=== PATIENT | male | born 1950 | race Hispanic/Latino ===

== ENCOUNTER 2017-09-09 14:04 | Inpatient (IN) | payer MEDICARE ==
[~2017-09-09] VITALS: Ht 172.7 cm; Wt 113.9 kg
[2017-09-09 17:32] VITALS: BP 110/67
[2017-09-09 17:36] VITALS: BP 110/67
[2017-09-09 17:38] LABS: BASOPHILS # (AUTO) 0.1 (0.0-0.1); BASOPHILS % 1.5 % (0.0-1.0); EOSINOPHILS # (AUTO) 0.3 (0.0-0.4); EOSINOPHILS % 7.1 % (0.0-6.0); HEMATOCRIT 29.6 % (38.2-49.6); HEMOGLOBIN 10.1 g/dL (14.0-18.0); LYMPHOCYTES # (AUTO) 0.9 (1.0-3.2); LYMPHOCYTES % 18.3 % (18.0-39.1); MEAN CORPUSCULAR HEMOGLOBIN 28.8 pg (28-32); MEAN CORPUSCULAR HGB CONC 34.1 g/dL (31-35); MEAN CORPUSCULAR VOLUME 84.3 fL (81-99); MONOCYTES # (AUTO) 0.7 (0.2-0.8); MONOCYTES % 14.9 % (4.4-11.3); NEUTROPHILS # (AUTO) 2.8 (2.1-6.9); NEUTROPHILS % 57.8 % (38.7-80.0); RED BLOOD COUNT 3.51 x10e6/uL (4.3-5.7); RED CELL DISTRIBUTION WIDTH 20.3 % (11.7-14.4)
[2017-09-09 17:40] LABS: PLATELET COUNT 61 x10e3/uL (140-360)
[2017-09-09 17:56] LABS: ALBUMIN 2.2 g/dL (3.5-5.0); ALBUMIN/GLOBULIN RATIO 0.5 (0.8-2.0); ANION GAP 10.4 mmol/L (8-16); CALCIUM 7.7 mg/dL (8.4-10.2); CREATININE, SERUM 1.24 mg/dL (0.72-1.25); POTASSIUM 4.4 mmol/L (3.5-5.1)
[2017-09-09 17:58] LABS: INR 1.75; PROTHROMBIN TIME 19.2 seconds (11.9-14.5)
[2017-09-09 17:59] LABS: PARTIAL THROMBOPLASTIN TIME 38.1 seconds (23.8-35.5)
[2017-09-09] MEDS ORDERED: XIFAXAN550 MG PO (18:08)
[2017-09-09] MEDS ORDERED: CARVEDILOL3.125 MG PO (18:08)
[2017-09-09] MEDS ORDERED: SPIRONOLACTONE25 MG PO (18:08)
[2017-09-09] MEDS ORDERED: CEFDINIR300 MG PO (18:08)
[2017-09-09] MEDS: DOXYCYCLINE 100MG/NS 100ML 100 ML IV SCH (18:15)
--- NOTE | 2017-09-09 18:39 | Diagnostic Imaging Report ---
PROCEDURE: X-RAY CHEST, TWO VIEWS COMPARISON: None. INDICATIONS: sob FINDINGS: LUNGS: There right middle lobe consolidation suspected right lower lobe atelectasis with small to moderate sized right pleural effusion. Aerated right upper lobe demonstrates no evidence of mass or infiltrate. Left lung is clear. PLEURA: No pneumothorax. HEART \T\ MEDIASTINUM: The heart is within normal size-limits. The aortic arch is mildly ectatic. BONES \T\ SOFT TISSUES: No focal osseous lesions. Soft tissues are unremarkable. CONCLUSION: Right middle lobe consolidation and suspected right lower lobe atelectasis with small pleural effusion. Obstructing bronchial mass cannot be excluded. Recommend further characterization with CT of the chest. Dictated by: Regan Vasquez M.D. on 09/09/2017 at 18:43 Electronically approved by: Regan Vasquez M.D. on 09/09/2017 at 18:43
--- NOTE | 2017-09-09 19:09 | Consultation ---
DATE OF CONSULTATION: September 09, 2017 GASTROENTEROLOGY CONSULTATION HISTORY OF PRESENT ILLNESS: Mr. Rodriguez is a 67-year-old gentleman who according to him and his have cirrhosis of the liver, cancer of the liver being treated at . [facility]. Initial he was receiving the oral treatment for liver cancer, which was stopped because of a poor response. Came to see us when he started complaining of shortness of breath and lack of energy and increase in abdominal girth. Dr. Gio Call admitted him for management. HE IS ALLERGIC TO NOTHING. His home medicine including magnesium, Xifaxan 550 mg every 12 hours, Lasix 40 mg every day, Aldactone 200 mg every day, carvedilol 6.25 mg twice a day, lactulose every day, and cefdinir 300 mg every 12 hours. REVIEW OF SYSTEMS: As above. PHYSICAL EXAMINATION GENERAL: Hemodynamically stable. Awake, alert, oriented. HEENT: Pale sclerae. NECK: Supple. LUNGS: Decreased breath sounds on the lower right lung. HEART: Regular-regular rhythm, very faint sounds. ABDOMEN: Increased abdominal girth. Unable to appreciate any internal organ. No signs of acute abdomen. EXTREMITIES: 2+ pedal edema. IMPRESSION 1. Cirrhosis of the liver. 2. Cancer of the liver. 3. Terminal liver disease, unfortunate case. 4. Recent increase in abdominal girth. Will put him on a low-salt diet. Will ask the parquet floor layer to teach him about low-salt diet. Will do large-volume paracentesis and will check his basic lab tests. Job#: [id number] EV
[2017-09-09 20:14] VITALS: BP 109/64
[2017-09-09 20:17] VITALS: BP 109/64
[2017-09-09 20:52] VITALS: BP 109/65
[2017-09-09] MEDS: METHYLPREDNISOLONE SOD SUCC 40 MG/ML VIAL IV SCH (20:52)
[2017-09-10] VITALS (10 sets, daily range): BP systolic 102–143; BP diastolic 50–78
[2017-09-10] MEDS: DOXYCYCLINE 100MG/NS 100ML 100 ML IV SCH (05:56)
[2017-09-10] MEDS ORDERED: SODIUM CHLORIDE 0.9% 1000ML 1,000 ML IV ONE (08:30)
[2017-09-10] MEDS ORDERED: LACTULOSE SYRUP 20 GM/30 ML UDC PO PRN (08:30)
[2017-09-10] MEDS ORDERED: SPIRONOLACTONE 25 MG TAB PO SCH (09:00)
[2017-09-10] MEDS: METHYLPREDNISOLONE SOD SUCC 40 MG/ML VIAL IV SCH ×2 (09:00→21:00)
[2017-09-10] MEDS: RIFAXIMIN 550 MG TABLET PO SCH ×2 (09:00→20:15)
[2017-09-10] MEDS: PANTOPRAZOLE SOD 40 MG TABEC PO SCH (09:00)
[2017-09-10] MEDS: CARVEDILOL 3.125 MG TAB PO SCH ×2 (09:00→16:57)
[2017-09-10] MEDS ORDERED: SPIRONOLACTONE 25 MG TAB PO ONE (11:30)
[2017-09-10] MEDS: FUROSEMIDE 40 MG TAB PO SCH (12:23)
--- NOTE | 2017-09-10 12:53 | History and Physical ---
CHIEF COMPLAINT: Right middle lobe and right lower lobe atelectasis with a history of liver cancer. HISTORY OF PRESENT ILLNESS: The patient is a 67-year-old man. He has a history of liver cancer and cirrhosis. He was treated at [facility], but has completed all the possible chemotherapy. He still has some recurrent ascites and requires serial ultrasound-guided thoracentesis. He notes worsening dyspnea over the past several weeks. He did not improve with nebulizers, antibiotics and Solu-Medrol at home. He had a chest x-ray done in the office yesterday that showed some right lower lobar atelectasis. PAST MEDICAL HISTORY 1. Liver cancer. 2. Cirrhosis. PAST SURGICAL HISTORY: Noncontributory. FAMILY HISTORY: Noncontributory. SOCIAL HISTORY: The patient is not an active smoker or drinker. REVIEW OF SYSTEMS: There is no fever. He is not having any headache. He does have some change in his voice. It is more nasal than usual. He does not have any neck pain. He is not having any chest pain. He does have some dyspnea. There is no cough. There is no abdominal pain although he does have some abdominal distention. He has some leg swelling. PHYSICAL EXAMINATION VITALS: The patient is afebrile. The vital signs are stable. HEENT: Shows no facial swelling or erythema. The nasal mucosa is normal. The oropharynx is normal. LYMPHATICS: Shows no submandibular, cervical or supraclavicular adenopathy. CARDIAC: Reveals a regular rate and rhythm with a normal S1 and S2. There are no murmurs or rubs. LUNGS: Auscultation of the lungs reveals decreased breath sounds at the right base. ABDOMEN: Soft. There is some distention. EXTREMITIES: There is 2+ leg edema bilaterally. NEURO: There are no focal neurological complaints. LABORATORY DATA: The hemoglobin is 10.1 and the platelet count is 61,000. The sodium is 127 and the BUN to creatinine ratio is 15 to 1.2. The PT is 19.2. RADIOGRAPHIC DATA: Chest x-ray shows right middle lobe and right lower lobe atelectasis. IMPRESSION 1. Lobar atelectasis in the right middle lobe and right lower lobe. 2. Cirrhosis. 3. Liver cancer. 4. Coagulopathy secondary to liver disease. 5. Acute kidney injury. 6. Hyponatremia. PLAN 1. The patient will receive intravenous fluids and repeat creatinine. 2. Chest physiotherapy and nebulizer treatments to try and expectorate phlegm. 3. If the patient is unable to improve with conservative measures, then a bronchoscopy will be indicated. 4. Solu-Medrol and antibiotics. 5. GI consultation. Job#: [id number] RI
[2017-09-10] MEDS: ALBUTEROL SULF 0.083% NEB SOLN 3 ML NEB NEB SCH ×2 (13:17→20:00)
--- NOTE | 2017-09-10 16:33 | Diagnostic Imaging Report ---
EXAMINATION: CT of the abdomen and pelvis without contrast. TECHNIQUE: Spiral CT images of the abdomen and pelvis were performed from the lung bases to the lesser trochanters. No intravenous contrast was given per physician's request.. Coronal and sagittal reformatted images were obtained. COMPARISON: None. CLINICAL HISTORY:Atelectasis, abdominal distention, shortness of breath DISCUSSION: ABSENCE OF INTRAVENOUS CONTRAST DECREASES SENSITIVITY FOR DETECTION OF FOCAL LESIONS AND VASCULAR PATHOLOGY. ABDOMEN/PELVIS: LOWER THORAX: Partially visualized moderate right pleural effusion and marked compressive atelectasis of the right lower lobe and mild compressive atelectasis of the right middle lobe. HEPATOBILIARY: Nodular hepatic contour. Ill-defined 1.2 cm hypodensity in hepatic segment ANTON (series 2, image 11). No other focal lesions. No intra or extrahepatic biliary ductal dilation. GALLBLADDER: No radio-opaque stones or sludge. Moderate wall thickening, however, the gallbladder is contracted. SPLEEN: No splenomegaly. PANCREAS: No focal masses or ductal dilatation. ADRENALS: Right adrenal gland is unremarkable. 1.6 cm soft tissue density superior and adjacent to the left adrenal gland (series 2, image 20). KIDNEYS/URETERS: No hydronephrosis, stones, or solid mass lesions. PELVIC ORGANS/BLADDER: Circumferential bladder wall thickening, which may be partly due to underdistention. Prostate is unremarkable. PERITONEUM/RETROPERITONEUM: Moderate amount of perihepatic ascites and small to moderate free fluid in the pelvis. LYMPH NODES: No intra-abdominal,retroperitoneal, pelvic or inguinal lymphadenopathy. VESSELS: Atherosclerotic calcification of the infrarenal abdominal aorta and proximal iliac vessels. Recanalized umbilical vein. GI TRACT: No bowel dilation or evidence of obstruction. BONES AND SOFT TISSUES: No aggressive lytic lesions. Degenerative disc changes in the lower thoracic and lumbosacral spine. 4.7 x 3.2 x 4.6 cm umbilical hernia containing a small portion of small bowel which has an unremarkable appearance, without wall thickening or dilation, and a small amount of free fluid. IMPRESSION: 1. Cirrhotic liver morphology with evidence of portal hypertension manifested by moderate amount of ascites and recanalized umbilical vein. 2. Ill-defined 1.2 cm hypodensity in hepatic segment ANTON which is indeterminate. Given the cirrhotic background, HCC is a consideration. 3. Partially visualized moderate right pleural effusion with marked compressive atelectasis of the right lower lobe and mild compressive atelectasis of the right middle lobe. 4. 1.6 cm soft tissue density superior and adjacent to the left adrenal gland may represent an adrenal lesion such as adenoma versus an adjacent enlarged lymph node. 5. 4.7 cm umbilical hernia containing a small portion of small bowel and free fluid, without evidence of strangulation or incarceration. Signed by: Dr. Sal Brooks M.D. on 09/10/2017 4:29 PM
[2017-09-10] MEDS ORDERED: PROPOFOL IV EMULSION 10 MG/ML 20 ML VIAL ONE (17:33)
[2017-09-10] MEDS ORDERED: LIDOCAINE HCL 2% LOCAL INJ 5 ML SDV VIAL INJ ONE (17:33)
[2017-09-10] MEDS ORDERED: ONDANSETRON HCL INJ 2 MG/ML VIAL ONE (17:33)
[2017-09-10] MEDS ORDERED: DEXAMETHASONE SOD PHOS INJ 4 MG/ML VIAL ONE (17:33)
[2017-09-10] MEDS ORDERED: SUCCINYLCHOLINE 200 MG/10 ML SYR ONE (17:33)
[2017-09-10] MEDS ORDERED: SEVOFLURANE INHAL SOLN 250 ML PEN BTL ONE (17:33)
[2017-09-10] MEDS: DOXYCYCLINE HYCLATE IV SCH (17:45)
[2017-09-10] MEDS: DEXTROSE 5% IV SCH (17:45)
[2017-09-10] MEDS ORDERED: DEXTROSE 5% 250ML 250 ML IV ONE (17:45)
[2017-09-10] MEDS ORDERED: LIDOCAINE HCL 1% LOCAL INJ 20 ML VIAL ONE (19:01)
--- NOTE | 2017-09-10 21:06 | Diagnostic Imaging Report ---
PROCEDURE:US GUIDED DIAGNOSTIC AND THERAPEUTIC PARACENTESIS COMPARISON:None. INDICATIONS:paracentesis FINDINGS: Written informed consent was obtained. The patient was prepped and draped in the usual sterile fashion. Ultrasound demonstrated moderate volume ascites in the right mid and lower abdomen. A suitable pocket of fluid in the right mid abdomen was visualized and 1% subcutaneous lidocaine was administered. With direct ultrasound guidance a 5 Fr catheter was advanced into the peritoneal cavity via direct trochar technique. Approximately 500 cc of cloudy serous fluid was aspirated. Samples were sent to microbiology and chemistries. Repeat ultrasound demonstrated the fluid in the right mid abdomen was resolved but there was an additional pocket of fluid in the right lower quadrant. The catheter was removed. After administration of 1% subcutaneous lidocaine, the 5 Fr catheter was advanced into the right lower quadrant fluid with ultrasound guidance and an additional 500 cc of cloudy serous fluid was aspirated. Repeat ultrasound demonstrated drainage of previously visualized ascites. The catheter was removed. Dermabond was applied at the access sites and bandages were placed. There were no immediate complications. CONCLUSION: Diagnostic and therapeutic paracentesis with aspiration of 1000 cc of cloudy serous fluid. Dictated by: SERGO BOTELLO M.D. on 09/10/2017 at 19:57 Electronically approved by: SERGO BOTELLO M.D. on 09/10/2017 at 19:57
[2017-09-10] MEDS: ZOLPIDEM TARTRATE 5 MG TAB PO PRN (21:30)
[2017-09-10] MEDS ORDERED: ALBUMIN 25% 25GM 0.25 GM/ML BTL IV ONE ×3 (21:30→23:15)
[2017-09-10 22:09] LABS: BODY FLUID APPEARANCE CLOUDY; BODY FLUID COLOR STRAW; BODY FLUID TYPE PERITONEAL
[2017-09-10 22:11] LABS: RBC,BODY FLUID 2663 cells/uL; WBC,BODY FLUID 168 cells/uL
[2017-09-10 23:09] LABS: LYMPHOCYTES,BODY FLUID 43 %; MONO/MACROPHG,BODY FLUID 5 %; NEUTROPHILS,BODY FLUID 52 %
[2017-09-11] VITALS (7 sets, daily range): BP systolic 118–135; BP diastolic 56–67
[2017-09-11] MEDS: ALBUTEROL SULF 0.083% NEB SOLN 3 ML NEB NEB SCH ×4 (00:05→18:50)
--- NOTE | 2017-09-11 01:31 | Progress Note ---
DATE: September 10, 2017 No dictation, 00:27 seconds. Job#: [id number]
--- NOTE | 2017-09-11 01:39 | Progress Note ---
DATE: September 10, 2017 Doing very well. Stable from yesterday. No major change. Pending his ultrasound-guided paracentesis. His chest x-ray showed right middle lobe consolidation and small right lung effusion. On exam, blood pressure 115/59, pulse 71, temperature 98. LAB TESTS: Showed total bilirubin 3.2, AST 82, ALT 67, alk phos is 166. PT 19, PTT 38. BUN 15, creatinine 1.24. Potassium 4.4, sodium 127. His platelets 61,000, hemoglobin 10, hematocrit is 29, and white cell count 4.8. Nothing to add to his care today except waiting for the dietitian education of low-salt diet. Will restrict his water intake to about liter and a half and monitor his sodium. Also waiting for the paracentesis. His abdomen is soft, nontender and no change from yesterday. Job#: [id number]
[2017-09-11 04:51] LABS: HEMATOCRIT 26.8 % (38.2-49.6); HEMOGLOBIN 9.4 g/dL (14.0-18.0); LYMPHOCYTES # (AUTO) 0.4 (1.0-3.2); MEAN CORPUSCULAR HEMOGLOBIN 28.9 pg (28-32); MEAN CORPUSCULAR HGB CONC 35.1 g/dL (31-35); MEAN CORPUSCULAR VOLUME 82.5 fL (81-99); MONOCYTES # (AUTO) 0.2 (0.2-0.8); MONOCYTES % 3.5 % (4.4-11.3); NEUTROPHILS # (AUTO) 5.6 (2.1-6.9); NEUTROPHILS % 88.9 % (38.7-80.0); PLATELET COUNT 51 x10e3/uL (140-360); RED BLOOD COUNT 3.25 x10e6/uL (4.3-5.7); RED CELL DISTRIBUTION WIDTH 19.8 % (11.7-14.4)
[2017-09-11 05:10] LABS: ALANINE AMINOTRANSFERASE 64 IU/L (0-55); ALBUMIN 2.2 g/dL (3.5-5.0); ALBUMIN/GLOBULIN RATIO 0.5 (0.8-2.0); ALKALINE PHOSPHATASE 136 IU/L (40-150); ANION GAP 9.7 mmol/L (8-16); BLOOD UREA NITROGEN 18 mg/dL (7-26); BUN/CREATININE RATIO 18 (6-25); CALCIUM 8.1 mg/dL (8.4-10.2); CARBON DIOXIDE 22 mmol/L (22-29); CHLORIDE 103 mmol/L (98-107); CREATININE, SERUM 1.01 mg/dL (0.72-1.25); EST GLOMERULAR FILTRATION RATE > 60 ML/MIN (60-); GLUCOSE 174 mg/dL (74-118); POTASSIUM 4.7 mmol/L (3.5-5.1); SODIUM 130 mmol/L (136-145)
[2017-09-11 05:27] LABS: ANISOCYTOSIS SLIGHT; PLATELET ESTIMATE MARKEDLY DECREASED; PLATELET MORPHOLOGY COMMENT NORMAL; RBC MORPHOLOGY COMMENT NORMAL
[2017-09-11] MEDS: DOXYCYCLINE HYCLATE IV SCH ×2 (06:11→18:16)
[2017-09-11] MEDS: DEXTROSE 5% IV SCH ×2 (06:11→18:16)
[2017-09-11] MEDS: CARVEDILOL 3.125 MG TAB PO SCH ×2 (08:15→16:57)
[2017-09-11] MEDS: PANTOPRAZOLE SOD 40 MG TABEC PO SCH (08:15)
[2017-09-11] MEDS: FUROSEMIDE 40 MG TAB PO SCH (08:15)
[2017-09-11] MEDS: RIFAXIMIN 550 MG TABLET PO SCH ×2 (08:15→20:15)
[2017-09-11] MEDS: SPIRONOLACTONE 25 MG TAB PO SCH (08:15)
[2017-09-11] MEDS: METHYLPREDNISOLONE SOD SUCC 40 MG/ML VIAL IV SCH ×2 (08:15→21:00)
[2017-09-11] MEDS: ZOLPIDEM TARTRATE 5 MG TAB PO PRN (22:08)
[2017-09-12] VITALS (8 sets, daily range): BP systolic 101–123; BP diastolic 50–67
[2017-09-12] MEDS: DOXYCYCLINE HYCLATE IV SCH ×3 (06:00→19:45)
[2017-09-12] MEDS: DEXTROSE 5% IV SCH ×3 (06:00→19:45)
[2017-09-12] MEDS: ALBUTEROL SULF 0.083% NEB SOLN 3 ML NEB NEB SCH ×3 (07:00→19:45)
[2017-09-12] MEDS: PANTOPRAZOLE SOD 40 MG TABEC PO SCH (07:30)
[2017-09-12] MEDS: RIFAXIMIN 550 MG TABLET PO SCH ×2 (08:15→22:08)
[2017-09-12] MEDS ORDERED: ALBUMIN 25% 25GM 0.25 GM/ML BTL IV ONE ×2 (09:00→10:00)
[2017-09-12] MEDS: CARVEDILOL 3.125 MG TAB PO SCH ×2 (09:00→17:09)
[2017-09-12] MEDS: FUROSEMIDE 40 MG TAB PO SCH (09:00)
[2017-09-12] MEDS: SPIRONOLACTONE 25 MG TAB PO SCH (09:00)
[2017-09-12] MEDS: METHYLPREDNISOLONE SOD SUCC 40 MG/ML VIAL IV SCH ×2 (09:00→22:08)
[2017-09-12] MEDS ORDERED: LIDOCAINE HCL 4% 50 ML BTL ONE (13:50)
[2017-09-12] MEDS ORDERED: EPINEPHRINE HCL INJ 1 MG/ML AMP ONE (13:50)
[2017-09-12] MEDS ORDERED: LIDOCAINE HCL 2% 30 ML TUBE ONE (13:51)
[2017-09-12] MEDS ORDERED: ACETYLCYSTEINE 200 MG/ML 4ML VIAL ONE (13:51)
[2017-09-12] MEDS ORDERED: OXYMETAZOLINE HCL 0.05% NAS 1 SPRAY BTL ONE (13:51)
--- NOTE | 2017-09-12 14:59 | Operative Report ---
DATE OF PROCEDURE: September 12, 2017 PROCEDURE: Bronchoscopy with bronchial washings. CONSENT: Consent was obtained from the patient. ANESTHESIA: The anesthesia service provided intravenous sedation. PROCEDURE: The patient was placed in a supine position. Oral endotracheal tube was used. The scope was advanced through the tube into the trachea. The tracheal mucosa was normal. Some mucus was removed from the trachea. The tayla was normal. The scope was then positioned into the left tracheobronchial tree. The lingula was normal to the subsegmental level. The left lower lobe was normal to the subsegmental level. The scope was repositioned into the right tracheobronchial tree. There was mucus removed from the right mainstem bronchus. The right upper lobe appeared normal to the subsegmental level. Mucus was then removed from the right middle lobe and right lower lobe. There were no endobronchial lesions. COMPLICATIONS: None. ESTIMATED BLOOD LOSS: None. Job#: [id number]
--- NOTE | 2017-09-12 17:07 | Diagnostic Imaging Report ---
PROCEDURE: Frontal and lateral views of the chest. COMPARISON: 09/09/17 INDICATIONS: STATUS POST BRONCHOSCOPY FINDINGS: Lines/tubes: None. Lungs: The lungs are well inflated. Again seen right middle and lower lobe atelectasis. Left lung is clear. Pleura: There is right pleural effusion. No pneumothorax. Heart and mediastinum: The heart and the mediastinum are normal. Bones: No acute bony abnormality. IMPRESSION: Decreased aeration of right lung when compared to prior x-ray. Opacification of right mid to lower lung field, likely due to atelectasis of the right middle and lower lobes and small to moderate size right pleural effusion. Dictated by: Dimitri Patel M.D. on 09/12/2017 at 17:11 Electronically approved by: Dimitri Patel M.D. on 09/12/2017 at 17:11
[2017-09-12] MEDS ORDERED: MIDAZOLAM HCL 2 MG/2 ML VIAL ONE (17:42)
[2017-09-12] MEDS ORDERED: FENTANYL CITRATE/PF 100MCG/2 ML INJ ONE (17:42)
[2017-09-13] VITALS: BP 107/57
[2017-09-13 04:00] VITALS: BP 120/58
[2017-09-13] MEDS: DOXYCYCLINE HYCLATE IV SCH (05:28)
[2017-09-13] MEDS: DEXTROSE 5% IV SCH (05:28)
[2017-09-13] MEDS: ALBUTEROL SULF 0.083% NEB SOLN 3 ML NEB NEB SCH ×2 (06:49)
[2017-09-13 08:00] VITALS: BP 103/56
[2017-09-13] MEDS: RIFAXIMIN 550 MG TABLET PO SCH (08:27)
[2017-09-13] MEDS: CARVEDILOL 3.125 MG TAB PO SCH (08:27)
[2017-09-13] MEDS: PANTOPRAZOLE SOD 40 MG TABEC PO SCH (08:27)
[2017-09-13] MEDS: FUROSEMIDE 40 MG TAB PO SCH (08:27)
[2017-09-13] MEDS: SPIRONOLACTONE 25 MG TAB PO SCH (08:28)
[2017-09-13 09:03] VITALS: BP 103/56
== END 2017-09-13 09:40 | disposition home or self-care (01) | DRG 206 ==
LOC: IMCU 16:03 → OBSVTOIN 09-10 08:40 → MED/SURG2 09-10 15:28
PROVIDERS: ADMIT Internal Medicine Critical Care Medicine; ATTEND Internal Medicine Critical Care Medicine
PROC: 0W9G3ZX Drainage of Peritoneal Cavity, Percutaneous Approach, Diagnostic (ICD-10-PCS; 2017-09-10)
PROC: 0BJ08ZZ Inspection of Tracheobronchial Tree, Via Natural or Artificial Opening Endoscopic (ICD-10-PCS; 2017-09-12)
PROC: 0BC18ZZ Extirpation of Matter from Trachea, Via Natural or Artificial Opening Endoscopic (ICD-10-PCS; principal; 2017-09-12 14:10)
DX: J98.11 Atelectasis (principal); D68.4 Acquired coagulation factor deficiency; N17.9 Acute kidney failure, unspecified; E87.1 Hypo-osmolality and hyponatremia; K74.60 Unspecified cirrhosis of liver; E86.0 Dehydration
CPT/HCPCS: 31623; 36415; 49083; 71046; 74176; 80053; 82040; 84155; 84157; 85025; 85610; 85730; 87071; 87186; 87205; 87335; 89051; 94640; 94667; 94668; G0378; J0171; J1100; J2001; J2250; J2405; J2920; J7030; P9047

== ENCOUNTER → 2017-09-20 | Outpatient (CLI) | payer MEDICARE ==
[~2017-09-20] MED LIST: CARVEDILOL3.125 MG PO; CEFDINIR300 MG PO; SPIRONOLACTONE25 MG PO; XIFAXAN550 MG PO
[2017-09-20 11:10] LABS: INR 1.65; PROTHROMBIN TIME 18.3 seconds (11.9-14.5)
[2017-09-20 11:11] LABS: PARTIAL THROMBOPLASTIN TIME 36.5 seconds (23.8-35.5)
--- NOTE | 2017-09-20 13:37 | Diagnostic Imaging Report ---
PROCEDURE: CHEST XRAY POST PROCEDURE COMPARISON: Patients [facility], DX, CHEST 2 VIEWS, 09/12/2017, 16:21. INDICATIONS: s/p rt. side thoracentesis FINDINGS: See conclusion. CONCLUSION: 1. No pneumothorax is identified. 2. Interval improvement in previously visualized moderate to large right pleural effusion post thoracentesis. 3. Left lung is grossly clear. 4. Cardiac silhouette is stable. Sla Brooks M.D. Dictated by: Sal Brooks M.D. on 09/20/2017 at 13:42 Electronically approved by: Sal Brooks M.D. on 09/20/2017 at 13:42
--- NOTE | 2017-09-20 13:52 | Diagnostic Imaging Report ---
PROCEDURE: ULTRASOUND GUIDED THORACENTESIS COMPARISON: [facility], DX, CHEST 2 VIEWS, 09/12/2017, 16:21. INDICATIONS:pleural effusion FINDINGS: After informed consent was obtained, the patient was placed in the sitting position and preliminary ultrasound of the posterior chest identified a safe route into the right pleural effusion. The overlying skin was prepped and draped in usual sterile fashion. Lidocaine 1% was used for local anesthesia. Under ultrasound guidance, a centesis needle was advanced into the pleural fluid and 2000 cc of blood tinged yellowish fluid were aspirated. The patient tolerated the procedure well and there were no immediate post-procedural complications. A post-thoracentesis chest radiograph will be obtained. CONCLUSION: Uncomplicated ultrasound-guided right thoracentesis with removal of 2000 cc. Sal Brooks M.D. Dictated by: Sal Brooks M.D. on 09/20/2017 at 13:57 Electronically approved by: Sal Brooks M.D. on 09/20/2017 at 13:57
== END ==
LOC: US 10:01
PROVIDERS: ATTEND Internal Medicine Critical Care Medicine
DX: J90 Pleural effusion, not elsewhere classified (principal)
CPT/HCPCS: 32555; 36415; 71045; 85049; 85610; 85730

== ENCOUNTER → 2017-09-26 | Outpatient (CLI) | payer MEDICARE ==
[~2017-09-26] MED LIST changes: +LIDOCAINE HCL 1% LOCAL INJ 20 ML VIAL ONE
[2017-09-26 09:45] LABS: INR 1.6; PROTHROMBIN TIME 17.9 seconds (11.9-14.5)
[2017-09-26 09:46] LABS: PARTIAL THROMBOPLASTIN TIME 37.1 seconds (23.8-35.5)
--- NOTE | 2017-09-26 11:48 | Diagnostic Imaging Report ---
PROCEDURE: ULTRASOUND GUIDED RIGHT SIDED DIAGNOSTIC AND THERAPEUTIC THORACENTESIS INDICATIONS: Pleural Effusion COMPARISON: Right sided thoracentesis on 09/20/2017. TECHNIQUE: The patient was informed of the nature of the proposed procedure. The purposes, alternatives, risks, and benefits were explained and discussed. All questions were answered and written consent was obtained. Medications: 1% Xylocaine DESCRIPTION/FINDINGS: Informed consent was obtained from the patient. Sterile technique was used. An ultrasound-guided right sided thoracentesis was performed. With the use of ultrasound guidance, a large right pleural fluid collection was identified. After infiltrating the skin with 1% xylocaine, a 5 Fr catheter was advanced into the right pleural space and 2000 cc of cloudy serous fluid was removed. The catheter was removed without immediate complication. A chest radiograph was ordered. Samples were sent for analysis. IMPRESSION: 1. ULTRASOUND GUIDED RIGHT SIDED DIAGNOSTIC AND THERAPEUTIC THORACENTESIS. Dictated by: SERGO BOTELLO M.D. on 09/26/2017 at 11:54 Electronically approved by: SERGO BOTELLO M.D. on 09/26/2017 at 11:54
--- NOTE | 2017-09-26 12:38 | Diagnostic Imaging Report ---
PROCEDURE:CHEST XRAY POST PROCEDURE COMPARISON:Chest radiograph 09/20/17. INDICATIONS:STATUS POST THORACENTESIS FINDINGS: Lines: None Lungs/Pleura: Moderate right pleural effusion status post thoracentesis. Right basilar opacity, likely representing atelectasis. No evidence of pneumothorax. Left lung is clear. No evidence of pulmonary edema. Heart and mediastinum: The cardiomediastinal silhouette is unchanged. Bones: No acute findings. CONCLUSION: Moderate right pleural effusion and basilar atelectasis status post thoracentesis. No evidence of pneumothorax. Dictated by: SERGO BOTELLO M.D. on 09/26/2017 at 12:44 Electronically approved by: SERGO BOTELLO M.D. on 09/26/2017 at 12:44
[2017-09-26 12:44] LABS: BODY FLUID APPEARANCE CLOUDY; BODY FLUID COLOR YELLOW; BODY FLUID TYPE PLEURAL; RBC,BODY FLUID 3119 cells/uL; WBC,BODY FLUID 407 cells/uL
[2017-09-26 13:13] LABS: LYMPHOCYTES,BODY FLUID 55 %; MONO/MACROPHG,BODY FLUID 12 %; NEUTROPHILS,BODY FLUID 11 %
[2017-09-26 13:14] LABS: OTHER CELLS,BODY FLUID 22 %
--- NOTE | 2017-09-26 13:22 | Diagnostic Imaging Report ---
PROCEDURE: CHEST XRAY POST PROCEDURE COMPARISON: 09/26/17 AT 1204 PM. INDICATIONS: STATUS POST THORACENTESIS FINDINGS: Lines: None Lungs/Pleura: Moderate right pleural effusion status post thoracentesis. Right basilar opacity, likely representing atelectasis. No evidence of pneumothorax. Left lung is clear. No evidence of pulmonary edema. Heart and mediastinum: The cardiomediastinal silhouette is unchanged. Bones: No acute findings. CONCLUSION: Moderate right pleural effusion and basilar atelectasis status post thoracentesis. No evidence of pneumothorax. Dictated by: SERGO BOTELLO M.D. on 09/26/2017 at 13:28 Electronically approved by: SERGO BOTELLO M.D. on 09/26/2017 at 13:28
== END ==
LOC: US 09:10
PROVIDERS: ATTEND Internal Medicine Critical Care Medicine
DX: J98.11 Atelectasis (principal); J44.9 Chronic obstructive pulmonary disease, unspecified
CPT/HCPCS: 32555; 36415; 71045; 83615; 84157; 84478; 85049; 85610; 85730; 87070; 87205; 88112; 88305; 89051; J2001

== ENCOUNTER 2017-10-02 09:13 | Inpatient (IN) | payer MEDICARE ==
[~2017-10-02] VITALS: Ht 170.2 cm; Wt 127.3 kg
[~2017-10-02 09:13] MED LIST changes: -LIDOCAINE HCL 1% LOCAL INJ 20 ML VIAL ONE
[2017-10-02 09:59] LABS: BASOPHILS % 0.2 % (0.0-1.0); EOSINOPHILS % 0.1 % (0.0-6.0); HEMATOCRIT 30.7 % (38.2-49.6); HEMOGLOBIN 10.9 g/dL (14.0-18.0); LYMPHOCYTES # (AUTO) 0.8 (1.0-3.2); LYMPHOCYTES % 5.2 % (18.0-39.1); MEAN CORPUSCULAR HEMOGLOBIN 29.7 pg (28-32); MEAN CORPUSCULAR HGB CONC 35.5 g/dL (31-35); MEAN CORPUSCULAR VOLUME 83.7 fL (81-99); MONOCYTES # (AUTO) 1.5 (0.2-0.8); MONOCYTES % 9.3 % (4.4-11.3); NEUTROPHILS # (AUTO) 13.5 (2.1-6.9); NEUTROPHILS % 84.1 % (38.7-80.0); PLATELET COUNT 66 x10e3/uL (140-360); RED BLOOD COUNT 3.67 x10e6/uL (4.3-5.7); RED CELL DISTRIBUTION WIDTH 20.1 % (11.7-14.4)
[2017-10-02 10:16] LABS: INR 1.66; PROTHROMBIN TIME 18.4 seconds (11.9-14.5)
[2017-10-02 10:17] LABS: PARTIAL THROMBOPLASTIN TIME 39.1 seconds (23.8-35.5)
[2017-10-02 10:24] LABS: ALBUMIN 2.2 g/dL (3.5-5.0); ALBUMIN/GLOBULIN RATIO 0.5 (0.8-2.0); ANION GAP 14.2 mmol/L (8-16); CALCIUM 7.9 mg/dL (8.4-10.2); CREATININE, SERUM 1.85 mg/dL (0.72-1.25); POTASSIUM 5.2 mmol/L (3.5-5.1)
[2017-10-02 10:32] LABS: CREATINE KINASE MB 1.2 ng/mL (0-5.0)
--- NOTE | 2017-10-02 10:41 | Diagnostic Imaging Report ---
Portable chest x-ray INDICATION: Shortness of breath COMPARISON: Chest x-ray 09/09/2017, CT abdomen 09/10/2017 FINDINGS: Frontal view of the chest obtained at 1018 hours. The cardiac silhouette is mildly enlarged and stable in morphology. Central pulmonary vasculature is mildly prominent. Right lower lobe atelectasis is redemonstrated with pleural effusion. No mass or infiltrate in the left lung. No pneumothorax. The osseous structures and soft tissues are stable. IMPRESSION: 1. Right lower lobe atelectasis and moderate-sized right pleural effusion. Underlying pneumonia cannot be excluded. 2. Mild central vascular congestion may be the result of portable technique. Signed by: Dr. Regan Vasquez MD on 10/02/2017 10:38 AM
[2017-10-02 11:13] LABS: CLARITY,URINE CLOUDY (CLEAR); COLOR,URINE ORANGE (YELLOW)
[2017-10-02 11:14] LABS: BILIRUBIN,URINE 2+ (NEGATIVE); KETONES,URINE 1+ (NEGATIVE); LEUKOCYTE ESTERASE ,URINE TRACE (NEGATIVE); NITRITE,URINE POSITIVE (NEGATIVE); PROTEIN,URINE DIPSTICK 1+ (NEGATIVE); URINE UROBILINOGEN 1 mg/dL (0.2 - 1)
[2017-10-02 11:15] LABS: AMORPHOUS SEDIMENT,URINE FEW (FEW); BACTERIA,URINE MANY /HPF; EPITHELIAL CELLS,URINE MANY /LPF; HYALINE CASTS 0-1 (0-1); RBC,URINE 0-5 /HPF (0-5)
[2017-10-02] MEDS ORDERED: FUROSEMIDE INJ 10 MG/ML 4 ML VIAL IV SCH ×2 (11:15→21:00)
[2017-10-02] MEDS: CEFTRIAXONE SOD 1 GM VIAL IV SCH (12:00)
[2017-10-02] MEDS ORDERED: ONDANSETRON HCL INJ 2 MG/ML VIAL IV PRN (12:30)
--- NOTE | 2017-10-02 14:58 | History and Physical ---
DATE OF SERVICE: October 02, 2017 COVERING FOR: Dr. Callum Snider. Coverage to be transferred to Dr. Charles Herring starting tomorrow, 10/03/2017. CHIEF COMPLAINT: Shortness of breath. HISTORY OF PRESENT ILLNESS: Mr. Lewis is a 67-year-old gentleman with a history reported of former smoking and alcohol use, end-stage liver disease and liver cancer following at [facility] by GI and oncology, ascites status post recent paracentesis on Tuesday and thoracentesis to right chest on Tuesday, followed by Dr. Gio Call, on chronic diuretics, who presents with worsening ascites and worsening dyspnea. He denies any chest pain. Describes minimal abdominal heaviness. Rocephin was initiated in the emergency department. He reports no other complaints at this time. REVIEW OF SYSTEMS: A 12-system review negative except for as noted above. PAST MEDICAL HISTORY: As per HPI. ALLERGIES: PER EMR. HOME MEDICATIONS: Discussed with family. They currently do not have a list available, requested they bring it to reconcile. FAMILY HISTORY: Noncontributory. SOCIAL HISTORY: Former smoker. Former alcohol use. Denies drugs. PHYSICAL EXAMINATION VITAL SIGNS: Temperature 97.6, respiratory rate 18, blood pressure 98/77, and O2 sat 98% on room air. GENERAL: No acute distress, alert. NECK: JVD noted at 45-degree head of bed elevation. CHEST: Decreased breath sounds in bilateral bases, more pronounced on the right. ABDOMEN: Distended with ascites. Bowel sounds positive. No guarding. No rebound. EXTREMITIES: With 2+ edema bilateral lower extremities. Hyperpigmented changes to skin. LABORATORY AND DIAGNOSTIC DATA: Studies reviewed. White blood cells 16,000, hemoglobin 10.9, platelets 66, neutrophils 84%, lymphocytes 5%, and monocytes 9%. PT 18.4, INR 1.66, and PTT 39.1. Chest x-ray, central venous congestion and right lower lobe atelectasis. Sodium 118, potassium 5.2, chloride 92, bicarbonate 17, BUN 28, creatinine 1.85, glucose 92. Total protein 6.3, albumin 2.2, total bilirubin 5.5, AST 131, ALT 115, alkaline phosphatase 188. Brain natriuretic peptide 34.9. Calcium 7.9. CK 47, CK-MB 1.2, and troponin-I 0.009. ASSESSMENT 1. Hyponatremia. 2. Shortness of breath in the setting of massive ascites. 3. Ascites. 4. Right lower lobe atelectasis, status post recent thoracentesis. 5. Right-sided pleural effusion, followed by Dr. Call as outpatient. 6. History of alcohol use and smoking. 7. Reported liver cancer. 8. End-stage liver disease. 9. Acute kidney injury. 10. Anemia. RECOMMENDATIONS 1. IV Lasix 80 mg twice a day; resume spironolactone per home, reported dose 200 mg daily. 2. Consult nephrology Dr. Chaney. 3. Consult GI, Dr. Reese. 4. Consult outpatient pulmonary doctor, Dr. Call. 5. SCDs and TEDs. 6. Continue antibiotic coverage for now given elevated white count and minimal abdominal discomfort, concerning for spontaneous bacterial peritonitis. 7. Starting tomorrow, Dr. Snider to be covered by Dr. Charles Herring. Job#: [id number] TAINA
--- NOTE | 2017-10-02 16:22 | Consultation ---
DATE OF CONSULTATION: October 02, 2017 GASTROENTEROLOGY CONSULTATION REFERRING PHYSICIAN: Dr. Snider. REASON FOR CONSULTATION: Cirrhosis, nausea. HISTORY OF PRESENT ILLNESS: Mr. Lewis is a 67-year-old man with decompensated cirrhosis and hepatoma. He has been treated at [facility] but is off of chemotherapy as he had decompensation of liver and is per their report not a candidate. He last followed up with his oncologist about a month ago. He has recurrent ascites and hepatic hydrothorax requiring ultrasound-guided thoracentesis and paracentesis. Family reports that they buy oxygen for him out of pocket at home since he does not qualify for insurance-related oxygen. He developed shortness of breath which they say seems to also be associated with the fluid buildup. He gets wheezing after his thoracenteses. He has some left upper quadrant abdominal discomfort and significant ascites. He has had no overt bleeding. His encephalopathy is controlled on lactulose. PAST MEDICAL HISTORY: 1. Cirrhosis. 2. Hepatocellular carcinoma complicated with portal hypertension, hepatic hydrothorax and ascites. MEDICATIONS AND ALLERGIES: REVIEWED. PLEASE SEE MAR MEDICATION RECONCILIATION FORM. SOCIAL HISTORY: No tobacco, alcohol or illicit substances. He has a previous alcohol history to which his cirrhosis is attributed. He has good family support. FAMILY HISTORY: Reviewed, noncontributory. REVIEW OF SYSTEMS: Twelve system review is positive for that mentioned in history of present illness as well as some nausea, otherwise unremarkable. PHYSICAL EXAMINATION: GENERAL: He is calm. He looks short of breath. He is audibly wheezing. He is obese and volume overloaded. HEENT: Pupils equal, round, reactive to light. NECK: Supple. LUNGS: Decreased significantly but right greater than left. ABDOMEN: Soft, protuberant. He has ascites. He has no peritonitis. On exam he has normal bowel sounds. EXTREMITIES: He has bilateral edema. PSYCH: Calm, cooperative. NEUROLOGIC: Nonfocal. HEME/ONC: No significant bruising or adenopathy. The electronic health record is reviewed for laboratory and radiologic studies as well as history. ASSESSMENT: 1. Decompensated cirrhosis. 2. Portal hypertension with recurrent ascites and hepatic hydrothorax. 3. Hepatoma which appears to be off therapy, perhaps not a candidate for further therapy. 4. Significant hyponatremia. 5. History of encephalopathy controlled with lactulose. PLAN: 1. At the current time patient will likely require another thoracentesis. Will see how he does and consider paracentesis thereafter. Given his decompensated status and hepatoma, he may be a candidate for hospice. Certainly he already would have been worked up for a transplant if that was a possibility. I will ask to defer that to his [place] [facility] tier, who knows him better. Based on his imaging from August, the hepatoma seems small. 2. He has leukocytosis, will need empiric antibiotics. 3. He has a urinary tract infection based on his urinalysis. Given his significant hyponatremia, further diuresis is probably not feasible. Will need to monitor closely for sodium. Will need to monitor kidney function. Will need to continue lactulose. Will need to follow up pending cultures. Thank you very much for asking me to see Mr. Lewis. Any questions or concerns, please do not hesitate to contact me. Will follow with you. Job#: [id number] JAXON
--- NOTE | 2017-10-02 16:59 | Consultation ---
DATE OF CONSULTATION: October 02, 2017 PULMONARY/CRITICAL CARE CONSULTATION REFERRING PHYSICIAN: Dr. Snider. HISTORY OF PRESENT ILLNESS: The patient is a 67-year-old man. He has a history of cirrhosis and liver cancer. He is followed at [facility] and has serial paracenteses. The patient has also experienced recurrent dyspnea. He has a recurrent right pleural effusion. His last thoracentesis was on the 26 of September. The results of this showed a transudate with no malignant cells on cytology. He now complains of recurrent dyspnea and congestion. PAST MEDICAL HISTORY: 1. Cirrhosis. 2. Liver cancer. PAST SURGICAL HISTORY: 1. Status post thoracentesis times 2 in the past 2 weeks. 1. History of multiple paracenteses. ALLERGIES: THERE ARE NO KNOWN DRUG ALLERGIES. FAMILY HISTORY: The family history is noncontributory. SOCIAL HISTORY: The patient is not an active smoker or an active drinker. REVIEW OF SYSTEMS: There is no fever or headache. He is not complaining of any neck pain. He has no chest pain. He does have worsening dyspnea. He does not complain of abdominal pain, nausea or vomiting. He has no leg edema. PHYSICAL EXAMINATION: VITAL SIGNS: The patient is afebrile. The vital signs are stable. HEENT: Examination shows no facial swelling or erythema. The nasal mucosa is normal. The oropharynx is normal. LYMPHATIC: Examination shows no submandibular, cervical or supraclavicular adenopathy. CARDIAC: Exam reveals a regular rate and rhythm with a normal S1 and S2. There are no murmurs or rubs. LUNGS: Auscultation reveals decreased breath sounds on the right side. ABDOMEN: Soft and nontender. There is no rebound or guarding. EXTREMITIES: Examination shows no leg edema or calf tenderness. There is no cyanosis or clubbing. SKIN: Examination shows no rashes. IMPRESSIONS: 1. 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 2. Cirrhosis with coagulopathy and hypoalbuminemia. 3. Hyponatremia. 4. Acute kidney injury. PLAN: 1. The patient will need fluid restriction for his hyponatremia and a repeat sodium tomorrow. 2. Discussed the possible therapeutic options with the family including a possible VATS or a possible catheter placement in the pleural space. 3. Cardiology evaluation. 4. Continue to monitor coags and albumin. 5. Continue current regimen for cirrhosis. Job#: [id number] EV
[2017-10-02] MEDS: SPIRONOLACTONE 25 MG TAB PO SCH (18:34)
[2017-10-02] MEDS: RIFAXIMIN 550 MG TABLET PO SCH (18:34)
[2017-10-02] MEDS: CARVEDILOL 3.125 MG TAB PO SCH (18:34)
[2017-10-02] MEDS: LACTULOSE SYRUP 20 GM/30 ML UDC PO SCH (18:34)
[2017-10-02 21:41] LABS: BASOPHILS % 0.2 % (0.0-1.0); EOSINOPHILS # (AUTO) 0.1 (0.0-0.4); EOSINOPHILS % 0.6 % (0.0-6.0); HEMATOCRIT 28.2 % (38.2-49.6); HEMOGLOBIN 9.9 g/dL (14.0-18.0); LYMPHOCYTES % 8.4 % (18.0-39.1); MEAN CORPUSCULAR HEMOGLOBIN 29.6 pg (28-32); MEAN CORPUSCULAR HGB CONC 35.1 g/dL (31-35); MEAN CORPUSCULAR VOLUME 84.4 fL (81-99); MONOCYTES # (AUTO) 1.3 (0.2-0.8); MONOCYTES % 10.2 % (4.4-11.3); NEUTROPHILS # (AUTO) 9.8 (2.1-6.9); NEUTROPHILS % 79.8 % (38.7-80.0); PLATELET COUNT 59 x10e3/uL (140-360); RED BLOOD COUNT 3.34 x10e6/uL (4.3-5.7); RED CELL DISTRIBUTION WIDTH 19.9 % (11.7-14.4)
[2017-10-02 21:58] LABS: ANION GAP 13.9 mmol/L (8-16); CALCIUM 7.6 mg/dL (8.4-10.2); CREATININE, SERUM 1.77 mg/dL (0.72-1.25); POTASSIUM 4.9 mmol/L (3.5-5.1)
[2017-10-02 22:00] VITALS: BP 98/66
[2017-10-02] MEDS ORDERED: FUROSEMIDE INJ 10 MG/ML 4 ML VIAL IV STA (22:07)
[2017-10-03] VITALS: BP 94/65
[2017-10-03] MEDS: CEFTRIAXONE SOD 1 GM VIAL IV SCH ×3 (00:05→22:46)
[2017-10-03 00:20] LABS: ANION GAP 12.3 mmol/L (8-16); CALCIUM 7.7 mg/dL (8.4-10.2); CREATININE, SERUM 1.75 mg/dL (0.72-1.25); POTASSIUM 5.3 mmol/L (3.5-5.1)
[2017-10-03 00:41] LABS: THYROID STIMULATING HORMONE 1.314 uIU/mL (0.350-4.940)
[2017-10-03] MEDS: RIFAXIMIN 550 MG TABLET PO SCH ×3 (01:51→15:30)
[2017-10-03 04:00] VITALS: BP 105/60
[2017-10-03 05:48] LABS: BASOPHILS % 0.2 % (0.0-1.0); EOSINOPHILS # (AUTO) 0.1 (0.0-0.4); EOSINOPHILS % 1.3 % (0.0-6.0); HEMATOCRIT 27.6 % (38.2-49.6); LYMPHOCYTES % 11.3 % (18.0-39.1); MEAN CORPUSCULAR HEMOGLOBIN 30.5 pg (28-32); MEAN CORPUSCULAR HGB CONC 36.2 g/dL (31-35); MEAN CORPUSCULAR VOLUME 84.1 fL (81-99); MONOCYTES % 11.8 % (4.4-11.3); NEUTROPHILS # (AUTO) 6.5 (2.1-6.9); NEUTROPHILS % 74.7 % (38.7-80.0); PLATELET COUNT 54 x10e3/uL (140-360); RED BLOOD COUNT 3.28 x10e6/uL (4.3-5.7); RED CELL DISTRIBUTION WIDTH 19.9 % (11.7-14.4)
[2017-10-03 05:56] LABS: INR 1.93; PROTHROMBIN TIME 20.7 seconds (11.9-14.5)
[2017-10-03 06:06] LABS: ALBUMIN/GLOBULIN RATIO 0.5 (0.8-2.0); ANION GAP 11.3 mmol/L (8-16); CALCIUM 7.9 mg/dL (8.4-10.2); CREATININE, SERUM 1.79 mg/dL (0.72-1.25); POTASSIUM 5.3 mmol/L (3.5-5.1)
[2017-10-03] MEDS: SPIRONOLACTONE 25 MG TAB PO SCH ×2 (08:21→17:34)
[2017-10-03] MEDS: LACTULOSE SYRUP 20 GM/30 ML UDC PO SCH ×2 (08:21→17:34)
[2017-10-03] MEDS ORDERED: FUROSEMIDE INJ 10 MG/ML 4 ML VIAL IV SCH (09:00)
[2017-10-03] MEDS ORDERED: SPIRONOLACTONE 25 MG TAB PO SCH (09:00)
[2017-10-03] MEDS: CARVEDILOL 3.125 MG TAB PO SCH (09:01)
[2017-10-03] MEDS ORDERED: MIDODRINE 2.5 MG TAB PO SCH (09:30)
[2017-10-03] MEDS ORDERED: SODIUM CHLORIDE 1 GM TAB PO ONE ×2 (09:30→19:45)
[2017-10-03] MEDS: MIDODRINE HCL 5 MG TABLET PO SCH ×4 (09:35→18:09)
[2017-10-03 10:02] LABS: BASOPHILS % 0.5 % (0.0-1.0); EOSINOPHILS # (AUTO) 0.3 (0.0-0.4); HEMATOCRIT 29.9 % (38.2-49.6); HEMOGLOBIN 10.5 g/dL (14.0-18.0); LYMPHOCYTES % 11.3 % (18.0-39.1); MEAN CORPUSCULAR HGB CONC 35.1 g/dL (31-35); MEAN CORPUSCULAR VOLUME 85.4 fL (81-99); MONOCYTES # (AUTO) 0.6 (0.2-0.8); MONOCYTES % 6.8 % (4.4-11.3); NEUTROPHILS # (AUTO) 6.8 (2.1-6.9); NEUTROPHILS % 77.9 % (38.7-80.0); PLATELET COUNT 58 x10e3/uL (140-360); RED CELL DISTRIBUTION WIDTH 20.4 % (11.7-14.4)
[2017-10-03 10:15] LABS: ANION GAP 12.1 mmol/L (8-16); CALCIUM 8.1 mg/dL (8.4-10.2); CREATININE, SERUM 1.78 mg/dL (0.72-1.25); POTASSIUM 5.1 mmol/L (3.5-5.1)
[2017-10-03] MEDS: ALBUMIN 25% 25GM 100 ML IV SCH ×3 (10:40→23:15)
--- NOTE | 2017-10-03 10:52 | Consultation ---
DATE OF CONSULTATION: NEPHROLOGY CONSULTATION REASON FOR CONSULTATION: Hepatorenal management, ALEJANDRA, hyponatremia, and volume overload. HPI: This is a 67-year-old male who is a chronic alcoholic in the past, which he reports that he quit 2 years ago, who has end-stage liver disease with liver cancer currently being treated at [facility] by GI and oncologist, who come in last week to have a thoracentesis now presents with worsening shortness of breath that began over the last several days. The patient reports that he is on some diuretics at home, but has not been working at all. He reports having some orthopnea and dyspnea on exertion. Also, reports some increased abdominal ascites. The patient denies any chest pain, palpitations, nausea, or vomiting. The patient was seen and evaluated at the bedside on the medical floor in the ER. Currently, his blood pressure systolic is in the 80s. He is sitting upright with nasal cannula. REVIEW OF SYSTEMS: Pertinent positives are shortness of breath, orthopnea, dyspnea on exertion, ascites, lower extremity edema. Pertinent negatives are currently denies any chest pain, palpitations, nausea, vomiting, diarrhea, dysuria, hematuria, frequency, urgency, lightheadedness, dizziness, abdominal pain, headache, shortness of breath, cough, congestion, fever, or any other complaints. The rest of the 14-point review of systems have been reviewed with the patient and are negative. ALLERGIES: NO KNOWN DRUG ALLERGIES. HOME MEDICATIONS: Currently, not available at this time, but does report taking some diuretics at home and liver cancer pill. PAST MEDICAL HISTORY: He has chronic alcohol abuse now with liver cancer and liver cirrhosis, portal hypertension, acute kidney injury, medical noncompliance. SURGICAL HISTORY: Reports none. FAMILY HISTORY: Hypertension, diabetes. SOCIAL HISTORY: Former smoker. Former alcohol user. No drugs. Good social support. PHYSICAL EXAMINATION VITAL SIGNS: Temperature is 96.2, pulse 60, respiratory rate 18, blood pressure 98/51, pulse ox 98% on 2 L nasal cannula. GENERAL: Not in acute distress. Alert and oriented times 3. Cooperative on exam. He has some jaundice in his eyes. Morbidly obese. He also has some significant ascites and anasarca. HEENT: Head is normocephalic and atraumatic. Eyes: Pupils equal, round and reactive to light bilaterally. He has some jaundice of the conjunctivae. NECK: Supple. Good range of motion. Throat with no evidence of any erythema or exudates in the posterior pharynx. Has poor dentition. PULMONARY: Clear to auscultation bilaterally. No wheezing. No rales. No rhonchi. No crepitus appreciated. Positive rales. Positive fine crackles. No wheezing appreciated. Good inspiratory effort. Good expiratory effort. CARDIOVASCULAR: Positive S1 and S2. No murmurs, rubs or gallops appreciated. ABDOMEN: Soft. It is distended. Has some ascites and abdominal wall edema. Positive bowel sounds. MUSCULOSKELETAL: Strength is 5/5 throughout. No evidence of any muscle deficits on examination. No weakness appreciated. NEUROLOGICAL: Cranial nerves II-XII are grossly intact. No evidence of any neurological deficit on exam. SKIN: Intact. Warm to touch. Good cap refill. PSYCHIATRIC: Normal affect and mood. EXTREMITIES: He has 1-2+ pedal edema in bilateral lower extremities with also anasarca. LAB FINDINGS: Show a white count of 8.6, hemoglobin 10, hematocrit 28, and his platelets are 54,000. Coagulation: PT 20.7, INR 1.9 and PTT 39. His sodium is 139, potassium 5.3, chloride 93, bicarb 20, anion gap is 11, BUN is 31, creatinine 1.79, glucose 116. Uric acid 5.9. Calcium 7.9. Total bilirubin is 5.2, AST 107, ALT 103, alk phos 172. Troponin is 0.009. Albumin is 2. TSH 1.3. Urinalysis with many bacteria, 6-10 wbcs, 2+ bilirubin, positive nitrite. MICROBIOLOGY: Blood and urine cultures are pending. IMAGING STUDIES: Chest x-ray shows some atelectasis, moderate size right pleural effusion with vascular congestion. IMPRESSION 1. Acute kidney injury concerning for underlying hepatorenal syndrome, type 1. 2. Hyponatremia, likely secondary to volume overload and concerning for hepatorenal. 3. Hypotension, likely due to hepatorenal syndrome. 4. Pancytopenia. 5. Mildly hyperkalemic. 6. Elevated liver transaminases. 7. Liver cirrhosis with hepatocellular carcinoma. PLAN: At this time, from a renal standpoint the patient will need to be started on midodrine 10 mg p.o. t.i.d. to maintain elevated blood pressure to perfuse the kidneys. Will also start him on octreotide 100 mcg IVPB t.i.d. Will give him 1 dose of salt tabs 2 g p.o. times 1. We are going to repeat a sodium level at 1700 hours. Will start him on albumin 25 g IV q.6 h. for 48 hours to increase perfusion to the kidneys as well. Will continue with Lasix to help with his dyspnea and his shortness of breath with Lasix 40 mg IV b.i.d. Continue with Aldactone 100 mg p.o. b.i.d. Overall prognosis is poor in this individual. It is my concern that the patient may end up in hepatorenal syndrome if he continues to have worsening renal function. I discussed with the family that if his function continues to get worse that we will try with conservative treatment, he may end up on dialysis. If that is case, then his prognosis will be very poor. Will continue to follow with you adam. Thank you so much for this consultation. Job#: [id number] RAJ
[2017-10-03] MEDS ORDERED: ALBUMIN 25% 25GM 0.25 GM/ML BTL IV SCH (12:00)
[2017-10-03] MEDS: OCTREOTIDE ACETATE IV SCH ×2 (12:14→20:36)
[2017-10-03] MEDS: SODIUM CHLORIDE 0.9% IV SCH ×2 (12:14→20:36)
--- NOTE | 2017-10-03 12:32 | Progress Note ---
DATE: October 03, 2017 SUBJECTIVE: Shortness of breath somewhat improved today. PHYSICAL EXAMINATION VITAL SIGNS: Reviewed and stable. The blood pressure is 110/65, respiratory rate 18, O2 sat 98% on nasal cannula, and heart rate 68. GENERAL: No acute distress. NECK: JVD elevated. CHEST: Decreased breath sounds at the right base. CARDIOVASCULAR: Regular rate and rhythm, normal S1 and S2. No S3, no S4. ABDOMEN: Distended, ascites. EXTREMITIES: With 3+ edema. Hyperpigmented lower extremities. Warm distal extremities. LABS: Lab work reviewed. Stable creatinine. Mildly anemic. ASSESSMENT: Volume overload in the setting of liver cirrhosis with hepatocellular carcinoma reported and acute renal failure concerning for hepatorenal syndrome. RECOMMENDATIONS 1. Continue with diuretics. 2. Consider surgical consultation for video-assisted thoracoscopic management for recurrent pleural effusion, likely hepatic hydrothorax. 3. Echocardiogram has been reviewed. Left ventricular systolic function preserved. No significant valvular abnormalities to explain the patient's findings of volume overload, suspect this is due primarily by liver and renal issues. I have discussed with the patient and family members. Will defer to Dr. Call decision on which surgeon to consult. I appreciate Dr. Gregorio's expertise from renal standpoint. Job#: [id number]
--- NOTE | 2017-10-03 14:10 | Progress Note ---
DATE: October 03, 2017 PULMONARY PROGRESS NOTE The patient continues to have some dyspnea. He is scheduled for a repeat thoracentesis today. OBJECTIVE VITALS: The blood pressure is 105/60, and the pulse is 57. The saturation is normal. HEENT: Examination shows no facial swelling or erythema. LYMPHATIC: No submandibular, cervical or supraclavicular adenopathy. CARDIAC: Regular rate and rhythm with a normal S1 and S2. LUNGS: Auscultation reveals decreased breath sounds on the right side. ABDOMEN: Soft and nontender. There is no rebound or guarding. IMPRESSION 1. Hepatic hydrothorax. 2. Cirrhosis. 3. Coagulopathy secondary to cirrhosis. 4. 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 5. Hyponatremia. 6. Renal insufficiency. PLAN 1. Repeat thoracentesis today. 2. Evaluation by thoracic surgery for a possible video-assisted thoracoscopy and sclerosis. 3. Continue Aldactone and lactulose for underlying cirrhosis. 4. Case discussed with the patient's and family. Job#: [id number]
[2017-10-03] MEDS: FUROSEMIDE INJ 10 MG/ML 4 ML VIAL IV SCH (17:34)
[2017-10-03 18:15] LABS: ANION GAP 13.6 mmol/L (8-16); CALCIUM 8.1 mg/dL (8.4-10.2); CREATININE, SERUM 1.65 mg/dL (0.72-1.25); POTASSIUM 4.6 mmol/L (3.5-5.1)
[2017-10-03] MEDS ORDERED: FUROSEMIDE INJ 10 MG/ML 4 ML VIAL IV ONE (19:30)
[2017-10-03] MEDS ORDERED: OCTREOTIDE ACETATE 2 ML ONE (20:28)
[2017-10-03] MEDS ORDERED: SODIUM CHLORIDE 0.9% 50ML 50 ML ONE (20:28)
--- NOTE | 2017-10-03 21:28 | Consultation ---
DATE OF CONSULTATION: October 03, 2017 REASON FOR CONSULT: Dyspnea, right pleural effusion; requested by Dr. Nick Call. HISTORY: I saw and evaluated this patient on October 03, 2017. He is a 67-year-old man, who is a former heavy drinker with end-stage liver failure and liver cancer, who is followed at [facility]. He presented with a substantial right pleural effusion. He has had a paracentesis last Tuesday and a thoracentesis on Tuesday. He is followed as an outpatient by Dr. Call and is maintained on chronic diuretics. There is no chest pain, but the ascites and dyspnea secondary to pleural effusion that become worse. He was admitted for evaluation. He had Rocephin initiated at the time of admission into the emergency department. He has not had any fevers or chills. No abdominal or chest pain. PAST MEDICAL HISTORY: Positive for cirrhosis and hepatocellular carcinoma with portal hypertension, known hepatic hydrothorax and ascites. MEDICATIONS: See APR. ALLERGIES: NONE KNOWN. SOCIAL: Negative for smoking. Quit alcohol several years ago. No IV drugs. He was previously an alcoholic. FAMILY HISTORY: Negative for cirrhosis or early coronary artery disease. REVIEW OF SYSTEMS GENERAL: Positive for fatigue and malaise. NEUROLOGIC: Negative for focal weakness of extremities or dysarthria. HEENT: Negative for decreased vision or decreased hearing. CARDIAC: Negative for chest pain or palpitations. PULMONARY: Positive for shortness of breath. Negative for wheezing. GI: Positive for abdominal swelling and cirrhosis as above. : Negative for hematuria or dysuria. ENDOCRINE: Negative for polyuria, polydipsia. VASCULAR: Negative for claudication. SKIN: Negative for rashes or itching. HEMATOLOGIC: Negative for clotting or bleeding. INFECTIOUS: Negative for fevers or sweating. PSYCHIATRIC: Negative for depression or anxiety. PHYSICAL EXAMINATION GENERAL: Well-developed, well-nourished man, who appears fairly healthy at present. He is sitting up in a chair and his is in the emergency department room with him. VITAL SIGNS: Blood pressure 110/70, pulse 80 and regular, respirations 16 and unlabored. NECK: Supple and nontender. No JVD. CARDIAC: Exam shows regular rate and rhythm. There is normal S1 and S2. There is no S3, S4, rubs or murmurs. LUNGS: Markedly decreased breath sounds at the right base. No wheezing or crackles. ABDOMEN: Globoid, benign. Positive for a fluid wave. No tenderness, no rebound. EXTREMITIES: No cyanosis or clubbing. There is 2+ edema to the knees bilaterally. VASCULAR: Carotids 2+/2+ bilaterally. No carotid bruits. Radials, 2+/2+ bilaterally. Femorals, 2+/2+ bilaterally. SKIN: No rashes or nonhealing ulcers. MUSCULOSKELETAL: Full range of motion at all joints. No joint swelling. NEUROLOGIC: Cranial nerves II through XII intact. Sensation intact to light touch and pinprick bilaterally. Strength is 5/5 in all extremities. LYMPHATIC: Negative for cervical, clavicular, femoral adenopathy. LABORATORIES AND IMAGING: Chest x-ray shows a substantial right pleural effusion with a somewhat elevated right hemidiaphragm. White count is 8.6 with hemoglobin 10.5, hematocrit 29.9, platelet count is depressed at 58,000. INR is 1.93 with PT 20.7. Sodium 121, potassium 4.6, BUN is 13, creatinine 1.65. Liver function tests on admission showed total bilirubin 5.2, AST 107, ALT 103, alkaline phosphatase 172. Albumin is low at 2.0. IMPRESSION: Advanced hepatic cirrhosis with hepatocellular carcinoma and hepatic hydrothorax. International normalized ratio is elevated. Thoracentesis planned for tomorrow. Will follow. Risk of surgery will be somewhat elevated in the setting of coagulopathy, hepatic and renal failure. Will discuss with other physicians. Thank you very much for asking me to see this very nice man. Job#: [id number]
[2017-10-03 23:25] LABS: ALBUMIN 2.5 g/dL (3.5-5.0); BILIRUBIN,DIRECT 2.2 mg/dL (0.0-0.5)
--- NOTE | 2017-10-03 23:35 | Progress Note ---
DATE: October 03, 2017 INTERNAL MEDICINE PROGRESS NOTE This is Dr. Snider coverage. SUBJECTIVE: Mr. Lewis was seen and examined at bedside. He is eating well per nursing. 98% oxygen saturation. 2 liters per minute by nasal cannula. Still low on energy though. lot of general body swelling. REVIEW OF SYSTEMS: No headaches, no GI bleed. OBJECTIVE: VITAL SIGNS: Afebrile, vital signs noted per electronic record. GENERAL: In no acute distress, although he looks weak, slightly pale. HEENT: Normocephalic, atraumatic. NECK: Supple. Throat midline. LUNGS: Bilateral air entry, decreased breath sounds significant, no wheezes. CARDIOVASCULAR: S1, S2. No murmurs, rubs, or gallops. ABDOMEN: Soft, nontender. EXTREMITIES: No clubbing, no cyanosis, there is 3+ to 4+ edema. INTEGUMENT: No rash, no purpura. LABS: 119 sodium, 5.3 potassium, 31 BUN, 1.8 creatinine. 8.6 white count, 54,000 platelets, 28 hematocrit. 1.9 INR. AST 107, ALT 103, alkaline phosphatase 172. T bili is 5.2. IMPRESSION AND PLAN: 1. Severe ascites. 2. Large pleural effusion. 3. Atelectasis, compressive. 4. History of liver cancer. 5. Severe hyponatremia. 6. Cirrhosis. 7. Acute kidney injury. 8. Anemia. 9. Thrombocytopenia. 10. History of hepatic encephalopathy, improved now. 11. History of diastolic fluid overload, ejection fraction 60% to 65%. 12. Coagulopathy, elevated INR. Continue diuretics at this time. Follow up sodium closely. Octreotide and midodrine will be added on. Repeat full blood work tomorrow. Give some albumin to the patient. Thoracentesis is planned and patient will likely have a lot of fluid shifting. Consider paracentesis soon if needed. Continue rifaximin. Continue lactulose which is already added on for history of encephalopathy. Patient critically ill. Will follow along closely. Job#: [id number]
[2017-10-04] MEDS ORDERED: SODIUM CHLORIDE 0.9% 50ML 50 ML ONE (02:54)
[2017-10-04] MEDS ORDERED: OCTREOTIDE ACETATE 0 ML ONE (02:55)
[2017-10-04] MEDS: SODIUM CHLORIDE 0.9% IV SCH ×3 (02:58→18:39)
[2017-10-04] MEDS: OCTREOTIDE ACETATE IV SCH ×3 (02:58→18:39)
[2017-10-04] MEDS: RIFAXIMIN 550 MG TABLET PO SCH ×2 (03:30→14:50)
[2017-10-04 05:31] LABS: BASOPHILS % 0.7 % (0.0-1.0); EOSINOPHILS # (AUTO) 0.2 (0.0-0.4); EOSINOPHILS % 4.1 % (0.0-6.0); HEMATOCRIT 28.4 % (38.2-49.6); HEMOGLOBIN 9.8 g/dL (14.0-18.0); LYMPHOCYTES % 16.6 % (18.0-39.1); MEAN CORPUSCULAR HEMOGLOBIN 30.1 pg (28-32); MEAN CORPUSCULAR HGB CONC 34.5 g/dL (31-35); MEAN CORPUSCULAR VOLUME 87.1 fL (81-99); MONOCYTES % 16.9 % (4.4-11.3); NEUTROPHILS # (AUTO) 3.6 (2.1-6.9); NEUTROPHILS % 61.5 % (38.7-80.0); PLATELET COUNT 56 x10e3/uL (140-360); RED BLOOD COUNT 3.26 x10e6/uL (4.3-5.7); RED CELL DISTRIBUTION WIDTH 20.2 % (11.7-14.4)
[2017-10-04 05:56] LABS: ALBUMIN 2.9 g/dL (3.5-5.0); ALBUMIN/GLOBULIN RATIO 0.9 (0.8-2.0); ANION GAP 13.7 mmol/L (8-16); CALCIUM 8.2 mg/dL (8.4-10.2); CREATININE, SERUM 1.34 mg/dL (0.72-1.25); POTASSIUM 4.7 mmol/L (3.5-5.1)
[2017-10-04] MEDS: ALBUMIN 25% 25GM 100 ML IV SCH ×4 (06:45→22:30)
[2017-10-04 08:42] LABS: INR 2.11; PROTHROMBIN TIME 22.2 seconds (11.9-14.5)
[2017-10-04] MEDS ORDERED: SODIUM CHLORIDE 1 GM TAB PO NR (10:00)
[2017-10-04 10:04] LABS: CREATININE,URINE RANDOM 51.4 mg/dL (63-166)
[2017-10-04] MEDS: LACTULOSE SYRUP 20 GM/30 ML UDC PO SCH ×2 (10:41→16:50)
[2017-10-04] MEDS: SPIRONOLACTONE 25 MG TAB PO SCH ×2 (10:41→16:50)
[2017-10-04] MEDS: FUROSEMIDE INJ 10 MG/ML 4 ML VIAL IV SCH ×2 (10:41→16:50)
[2017-10-04] MEDS: MIDODRINE HCL 5 MG TABLET PO SCH ×3 (10:41→16:30)
[2017-10-04] MEDS: CEFTRIAXONE SOD 1 GM VIAL IV SCH ×2 (12:12→22:30)
--- NOTE | 2017-10-04 12:38 | Progress Note ---
DATE: October 04, 2017 INTERNAL MEDICINE PROGRESS NOTE This is coverage for Dr. Snider. SUBJECTIVE: Mr. Lewis was seen and examined at bedside. He has no significant worsening during his stay. No large respiratory distress episodes. He was coordinated and is prepared for his thoracentesis today. Oxygen saturation 99% on room air FiO2. Patient walked in the room. REVIEW OF SYSTEMS: No headaches, no bleeding. OBJECTIVE VITAL SIGNS: Afebrile, vital signs noted per electronic record. GENERAL: In no acute distress, alert, looks weak and pale. HEENT: Normocephalic, atraumatic. NECK: Supple. Throat midline. LUNGS: Bilateral air entry, few decreased breath sounds, few rhonchi. CARDIOVASCULAR: S1, S2. No murmurs, rubs, or gallops. ABDOMEN: Soft, nontender. EXTREMITIES: No clubbing, no cyanosis, there is still just left lower edema. INTEGUMENT: No rash, no purpura. IMPRESSION AND PLAN 1. Massive pleural effusion. 2. Abdominal distention, known ascites. 3. Cirrhosis. 4. Liver cancer. 5. Anemia. 6. Weakness. Continue current treatment at this time. Patient remains with fluid and requiring the thoracentesis. Afterwards, he needs evaluation to continue to treat the abdominal distention which may culminate into a paracentesis as well. Followup hemodynamics once the fluid is out as his baseline creatinine is 1.6 and he is at high risk of worsening of his hemodynamics. Followup closely. Job#: [id number] SUB
[2017-10-04 14:13] VITALS: BP 125/79
[2017-10-04 16:00] VITALS: BP 127/68
--- NOTE | 2017-10-04 16:06 | Progress Note ---
DATE: October 04, 2017 CARDIOLOGY PROGRESS NOTE SUBJECTIVE: Dyspnea improving. Abdominal distention and discomfort improving. PHYSICAL EXAMINATION VITAL SIGNS: Reviewed and stable. GENERAL: No acute distress. Alert. NECK: No JVD. CHEST: Decreased breath sounds to right lower half of lung harmon. CARDIOVASCULAR: Regular rate and rhythm. Normal S1 and S2. No S3 or S4. No murmurs or rubs. ABDOMEN: Soft, distended. Ascites present. Slightly decreased compared to our last exam. Bowel sounds positive. No rebound, no guarding. EXTREMITIES: 1+ edema to bilateral lower extremities, overall improving. LABORATORY WORK: Reviewed. Creatinine stabilizing and trending down. Sodium improving, trending up. ASSESSMENT 1. Liver cirrhosis with hepatocellular carcinoma with ascites and right-sided hydrothorax. 2. Acute renal failure, improving. 3. [id number] diastolic heart failure versus volume overload related to liver and kidney disease. RECOMMENDATIONS 1. Improving with diuretics. Continue current medicines. 2. Consider thoracentesis. 3. Consider paracentesis. 4. Consider surgical evaluation for video-assisted thoracoscopy depending on continued response. 5. Continue IV Lasix and current spironolactone dose and trend electrolytes and renal function. Job#: [id number] [place]
[2017-10-04 19:11] LABS: ANION GAP 16.3 mmol/L (8-16); CALCIUM 8.2 mg/dL (8.4-10.2); CREATININE, SERUM 1.41 mg/dL (0.72-1.25); POTASSIUM 4.3 mmol/L (3.5-5.1)
[2017-10-04 20:00] VITALS: BP 132/72
[2017-10-04 21:00] VITALS: BP 132/72
[2017-10-04] MEDS ORDERED: SODIUM CHLORIDE 0.9% 250ML 250 ML ONE (21:22)
[2017-10-04 23:29] VITALS: BP 112/62
[2017-10-05] VITALS (7 sets, daily range): BP systolic 109–140; BP diastolic 70–80
[2017-10-05] MEDS: OCTREOTIDE ACETATE IV SCH ×2 (01:27→10:00)
[2017-10-05] MEDS: SODIUM CHLORIDE 0.9% IV SCH ×2 (01:27→10:00)
[2017-10-05] MEDS: RIFAXIMIN 550 MG TABLET PO SCH ×2 (01:28→13:19)
[2017-10-05] MEDS ORDERED: SODIUM CHLORIDE 0.9% 250ML 250 ML ONE (04:37)
[2017-10-05] MEDS: ALBUMIN 25% 25GM 100 ML IV SCH (05:00)
--- NOTE | 2017-10-05 05:57 | Diagnostic Imaging Report ---
EXAM: CHEST SINGLE (PORTABLE), AP 1 view INDICATION: CHF COMPARISON: October 02, 2017 FINDINGS: LINES/TUBES: None LUNGS: Right lower lobe atelectasis PLEURA: Stable moderate to large right pleural effusion HEART AND MEDIASTINUM: No interval change BONES AND SOFT TISSUES: No acute findings. IMPRESSION: No interval change in appearance of the chest. Signed by: Dr. Lucretia Bojorquez M.D. on 10/05/2017 5:53 AM
[2017-10-05] MEDS: MIDODRINE HCL 5 MG TABLET PO SCH ×3 (09:00→17:00)
[2017-10-05] MEDS: LACTULOSE SYRUP 20 GM/30 ML UDC PO SCH ×2 (09:00→17:00)
[2017-10-05] MEDS: FUROSEMIDE INJ 10 MG/ML 4 ML VIAL IV SCH ×2 (09:00→17:00)
[2017-10-05] MEDS: SPIRONOLACTONE 25 MG TAB PO SCH ×2 (09:00→17:00)
--- NOTE | 2017-10-05 09:07 | Diagnostic Imaging Report ---
PROCEDURE: CHEST XRAY POST PROCEDURE COMPARISON: Chest radiograph 10/02/17. INDICATIONS: POST THORACENTESIS FINDINGS: Lines: None Lungs/Pleura: Interval decrease of right sided pleural effusion, now moderate in size, status post thoracentesis. Right basilar opacity, likely representing atelectasis. No evidence of pneumothorax. Left lung is clear. No evidence of pulmonary edema. Heart and mediastinum: The cardiomediastinal silhouette is unchanged. Bones: No acute findings. CONCLUSION: Decreasing size of right sided pleural effusion, now moderate, status post thoracentesis. Right basilar subsegmental atelectasis. No evidence of pneumothorax. Dictated by: SERGO BOTELLO M.D. on 10/05/2017 at 9:13 Electronically approved by: SERGO BOTELLO M.D. on 10/05/2017 at 9:13
--- NOTE | 2017-10-05 09:17 | Diagnostic Imaging Report ---
PROCEDURE: ULTRASOUND GUIDED THORACENTESIS COMPARISON: None. INDICATIONS:Pleural Effusion FINDINGS: After informed consent was obtained, the patient was placed in the sitting position and preliminary ultrasound of the posterior chest identified a safe route into a large right pleural effusion. The overlying skin was prepped and draped in usual sterile fashion. Lidocaine 1% was used for local anesthesia. Under ultrasound guidance, a 5 Fr catheter was advanced into the pleural fluid and 2 liters of cloudy serous fluid was drained. The catheter was removed and sterile bandage placed. The patient tolerated the procedure well and there were no immediate post-procedural complications. Samples were sent to the lab. A post-thoracentesis chest radiograph will be obtained. CONCLUSION: Uncomplicated ultrasound-guided right thoracentesis with removal of 2 liters of fluid. Dictated by: SERGO BOTELLO M.D. on 10/05/2017 at 9:22 Electronically approved by: SERGO BOTELLO M.D. on 10/05/2017 at 9:22
[2017-10-05 09:18] LABS: BASOPHILS % 0.4 % (0.0-1.0); EOSINOPHILS # (AUTO) 0.1 (0.0-0.4); EOSINOPHILS % 3.7 % (0.0-6.0); HEMATOCRIT 24.5 % (38.2-49.6); HEMOGLOBIN 8.2 g/dL (14.0-18.0); LYMPHOCYTES # (AUTO) 0.6 (1.0-3.2); LYMPHOCYTES % 22.4 % (18.0-39.1); MEAN CORPUSCULAR HEMOGLOBIN 29.9 pg (28-32); MEAN CORPUSCULAR HGB CONC 33.5 g/dL (31-35); MEAN CORPUSCULAR VOLUME 89.4 fL (81-99); MONOCYTES # (AUTO) 0.6 (0.2-0.8); MONOCYTES % 20.2 % (4.4-11.3); NEUTROPHILS # (AUTO) 1.4 (2.1-6.9); NEUTROPHILS % 52.9 % (38.7-80.0); RED BLOOD COUNT 2.74 x10e6/uL (4.3-5.7); RED CELL DISTRIBUTION WIDTH 20.1 % (11.7-14.4)
[2017-10-05 09:20] LABS: PLATELET COUNT 44 x10e3/uL (140-360)
[2017-10-05 09:28] LABS: INR 1.81; PROTHROMBIN TIME 19.7 seconds (11.9-14.5)
[2017-10-05 09:29] LABS: PARTIAL THROMBOPLASTIN TIME 40.1 seconds (23.8-35.5)
[2017-10-05 09:40] LABS: ALANINE AMINOTRANSFERASE 55 IU/L (0-55); ALBUMIN 3.5 g/dL (3.5-5.0); ALBUMIN/GLOBULIN RATIO 1.3 (0.8-2.0); ALKALINE PHOSPHATASE 102 IU/L (40-150); ANION GAP 14.2 mmol/L (8-16); BLOOD UREA NITROGEN 20 mg/dL (7-26); BUN/CREATININE RATIO 18 (6-25); CALCIUM 8.4 mg/dL (8.4-10.2); CARBON DIOXIDE 21 mmol/L (22-29); CHLORIDE 100 mmol/L (98-107); CREATININE, SERUM 1.11 mg/dL (0.72-1.25); EST GLOMERULAR FILTRATION RATE > 60 ML/MIN (60-); GLUCOSE 109 mg/dL (74-118); MAGNESIUM 1.5 MG/DL (1.3-2.1); PHOSPHORUS 2.5 MG/DL (2.3-4.7); POTASSIUM 4.2 mmol/L (3.5-5.1); SODIUM 131 mmol/L (136-145)
[2017-10-05] MEDS: CEFTRIAXONE SOD 1 GM VIAL IV SCH (10:45)
--- NOTE | 2017-10-05 18:38 | Progress Note ---
DATE: October 05, 2017 CARDIOLOGY PROGRESS NOTE SUBJECTIVE: No complaints today. Status post right-sided thoracentesis with improvement in dyspnea. Continues to diurese well. OBJECTIVE VITAL SIGNS: Temperature 98.7, heart rate 60, respiratory rate 16, blood pressure 136/76. O2 sat 100% on nasal cannula. GENERAL: In no acute distress. Alert. NECK: No JVD. CHEST: Decreased breath sounds, bilateral bases. CARDIOVASCULAR: Regular rate and rhythm. Normal S1 and S2. No S3, no S4, no murmurs, no rubs. ABDOMEN: Distended. No rebound or guarding. EXTREMITIES: With 1+ edema, overall improving. STUDIES: Reviewed. CARDIOVASCULAR MEDICATIONS: Reviewed. ASSESSMENT 1. Hepatocellular cancer with liver cirrhosis. 2. Ascites. 3. Right-sided hydrothorax. 4. Status post thoracentesis. 5. Renal failure. 6. Acute diastolic heart failure. PLAN: 1. Continue diuretics. 2. Consider cardiothoracic surgical consultation as an outpatient. 3. Overall guarded prognosis. Job#: [id number]
[2017-10-06] VITALS (13 sets, daily range): BP systolic 104–131; BP diastolic 55–80
--- NOTE | 2017-10-06 02:07 | Progress Note ---
DATE: October 05, 2017 INTERNAL MEDICINE PROGRESS NOTE This is coverage for Dr. Callum Snider. SUBJECTIVE: Ms. Lewis was seen and examined at bedside. 0.7 liters in, 1.1 liters out. Three bowel movements were achieved. Thoracentesis today with 2 liters of output. FFP was given prior to this procedure. Blood culture 1 out of 2 positive. Urine culture, no growth to date. Chest x-ray looking better after thoracentesis. Discussion held with process engineer and media planner and GI doctor regarding discharge planning. REVIEW OF SYSTEMS: No bleeding, no headaches. OBJECTIVE: VITAL SIGNS: Afebrile, vital signs noted per electronic record. GENERAL: In no acute distress, looks weak and pale. HEENT: Normocephalic, atraumatic. NECK: Supple. Throat midline. LUNGS: Bilateral air entry, decreased breath sounds at base. CARDIOVASCULAR: S1, S2. No murmurs, rubs, or gallops. ABDOMEN: Soft, nontender. EXTREMITIES: No clubbing, no cyanosis, there is small edema. INTEGUMENT: No rash, no purpura. LABS: 131 sodium, 1.1 creatinine. 21 bicarbonate. 2.7 white count, 44,000 platelets, and 25 hematocrit. INR 1.8. IMPRESSION AND PLAN: 1. Large right-sided pleural effusion, status post thoracentesis with much improvement. 2. Distended abdomen, probable significant ascites. 3. Cirrhosis. 4. History of liver cancer. 5. Hyponatremia, severe, improved. 6. Acute kidney injury, improving. 7. Anemia. 8. Thrombocytopenia. 9. History of hepatic encephalopathy, improved. 10. History of diastolic fluid overload, ejection fraction 60% to 65%. 11. Coagulopathy, mostly hepatic. Discussed with gastroenterology and no immediate paracentesis is needed. However, discussion with physicians would suggest consideration for transjugular intrahepatic portosystemic shunt to be done. Family to establish where they want to consider transjugular intrahepatic portosystemic shunt whether in medical center or here. We will wait their answer and will consider discharge planning as appropriate. We appreciate color consultant's help including process engineer who helped correct some of the severe electrolyte abnormalities. Recheck chest x-ray in morning and assess the rate of reaccumulation, although by history it has been quite fast and patient has been getting thoracentesis almost every week now. Job#: [id number]
[2017-10-06] MEDS: RIFAXIMIN 550 MG TABLET PO SCH ×2 (02:39→14:16)
[2017-10-06] MEDS: CEFTRIAXONE SOD 1 GM VIAL IV SCH ×3 (03:14→22:48)
[2017-10-06] MEDS ORDERED: ALBUTEROL/IPRATROPIUM 3 ML NEB NEB PRN ×2 (03:15→03:30)
[2017-10-06 04:59] LABS: BASOPHILS % 0.8 % (0.0-1.0); EOSINOPHILS # (AUTO) 0.1 (0.0-0.4); EOSINOPHILS % 2.6 % (0.0-6.0); HEMATOCRIT 23.6 % (38.2-49.6); HEMOGLOBIN 8.2 g/dL (14.0-18.0); LYMPHOCYTES # (AUTO) 0.5 (1.0-3.2); LYMPHOCYTES % 19.9 % (18.0-39.1); MEAN CORPUSCULAR HEMOGLOBIN 30.4 pg (28-32); MEAN CORPUSCULAR HGB CONC 34.7 g/dL (31-35); MEAN CORPUSCULAR VOLUME 87.4 fL (81-99); MONOCYTES # (AUTO) 0.5 (0.2-0.8); MONOCYTES % 20.3 % (4.4-11.3); NEUTROPHILS # (AUTO) 1.5 (2.1-6.9); NEUTROPHILS % 55.6 % (38.7-80.0); RED CELL DISTRIBUTION WIDTH 19.8 % (11.7-14.4)
[2017-10-06 05:25] LABS: ALANINE AMINOTRANSFERASE 47 IU/L (0-55); ALBUMIN/GLOBULIN RATIO 1.2 (0.8-2.0); ALKALINE PHOSPHATASE 93 IU/L (40-150); ANION GAP 12.7 mmol/L (8-16); BLOOD UREA NITROGEN 15 mg/dL (7-26); BUN/CREATININE RATIO 18 (6-25); CALCIUM 7.9 mg/dL (8.4-10.2); CARBON DIOXIDE 19 mmol/L (22-29); CHLORIDE 101 mmol/L (98-107); CREATININE, SERUM 0.83 mg/dL (0.72-1.25); EST GLOMERULAR FILTRATION RATE > 60 ML/MIN (60-); GLUCOSE 104 mg/dL (74-118); MAGNESIUM 1.3 MG/DL (1.3-2.1); PHOSPHORUS 2.1 MG/DL (2.3-4.7); POTASSIUM 3.7 mmol/L (3.5-5.1); SODIUM 129 mmol/L (136-145)
[2017-10-06 05:35] LABS: PLATELET COUNT 47 x10e3/uL (140-360)
--- NOTE | 2017-10-06 06:28 | Diagnostic Imaging Report ---
EXAM: CHEST SINGLE (PORTABLE), AP 1 view INDICATION: Pleural effusion COMPARISON: AP view of the chest October 05, 2017 FINDINGS: LINES/TUBES: None LUNGS: Right lower lobe atelectasis PLEURA: Stable moderate to large right pleural effusion HEART AND MEDIASTINUM: Stable appearance BONES AND SOFT TISSUES: No acute findings. IMPRESSION: No interval change in appearance of the chest. Signed by: Dr. Lucretia Bojorquez M.D. on 10/06/2017 6:25 AM
[2017-10-06 07:14] LABS: RBC MORPHOLOGY COMMENT NORMAL
[2017-10-06 07:15] LABS: ANISOCYTOSIS SLIGHT; HYPOCHROMASIA MODERATE; PLATELET ESTIMATE MARKEDLY DECREASED; PLATELET MORPHOLOGY COMMENT FEW LARGE; POIKILOCYTOSIS SLIGHT
--- NOTE | 2017-10-06 07:42 | Progress Note ---
DATE: October 06, 2017 CARDIOLOGY PROGRESS NOTE SUBJECTIVE: No complaints today. Shortness of breath improving. Undergoing fluid-restricted diet. OBJECTIVE VITAL SIGNS: Temperature 98.3, heart rate 66, respiratory rate 18, blood pressure 104/62. GENERAL: No acute distress. Alert. NECK: No JVD. CHEST: Decreased breath sounds at bilateral bases. CARDIOVASCULAR: Regular rate and rhythm. Normal S1 and S2. No S3 or S4. ABDOMEN: Soft. Ascites present. EXTREMITIES: There is 1+ edema to bilateral lower extremities with hyperpigmented legs. CARDIOVASCULAR MEDICATIONS: Reviewed. On furosemide 40 mg twice a daily and spironolactone 100 mg twice a day. LABS: Sodium 129, potassium 3.7, chloride 101, bicarbonate 19, BUN 15, creatinine 0.84, glucose 104, calcium 7.9, magnesium 1.3, phosphorus 2.1. White blood cells 2.6, hemoglobin 8.2, platelets 47. ASSESSMENT 1. Hyponatremia/electrolyte derangements. 2. End-stage liver disease with hepatocellular carcinoma. 3. [id number] renal failure. 4. Acute diastolic heart failure. 5. Volume overload. 6. Pancytopenia. RECOMMENDATIONS: Agree with fluid-restricted diet and electrolyte repletion. Defer management to nephrology, who is on the case and addressing issues. From a fluid perspective, it seems the volume status has improved. Feels better status post thoracentesis. Paracentesis currently on hold. Consideration for hepatic portosystemic shunt. Discussion underway with family, awaiting decision. Continue the rest of the cardiovascular medications. Job#: [id number]
--- NOTE | 2017-10-06 09:02 | Progress Note ---
DATE: PULMONARY PROGRESS NOTE SUBJECTIVE: The patient still has some fluid accumulating around the right pleural space. I spoke with thoracic surgery yesterday. We do not believe video-assisted thoracoscopy would be beneficial; the video-assisted thoracoscopy is unlikely to correct the problem. A Pleur-evac tube is not the first choice, because continued drainage of lymphatic and serous fluid from the pleural space would lead to further dehydration. PHYSICAL EXAMINATION: VITAL SIGNS: The patient is afebrile. The blood pressure is 104/62 and the saturation is 100% on 2 liters. HEENT: Shows no facial swelling or erythema. The nasal mucosa is normal. The oropharynx is normal. LYMPHATIC: Shows no submandibular, cervical, or supraclavicular adenopathy. NECK: Shows no JVD or thyromegaly. There is no nuchal rigidity. CARDIAC: Reveals a regular rate and rhythm with a normal S1 and S2. There are no murmurs or rubs. LUNGS: Auscultation of the lungs reveals decreased breath sounds at right side. ABDOMEN: Soft and nontender. There is no rebound or guarding. EXTREMITIES: Shows no leg edema. IMPRESSION: 1. Severe end-stage cirrhosis with esophageal varices, synthetic dysfunction, and recurrent ascitic fluid accumulation. 2. Hepatic hydrothorax. 3. Pancytopenia secondary to cirrhosis and splenomegaly. 4. Hyponatremia. PLAN: 1. The patient should be evaluated by hepatology for a possible TIPS procedure. 2. Patient will require repeat thoracentesis either as an inpatient or as a scheduled outpatient. 3. Platelet transfusion or red blood cell transfusion is not indicated at this time. These low counts are related to the splenomegaly and cirrhosis. 4. Case discussed with the patient's family, Dr. Bustamante, and the attending physician. Job#: [id number]
[2017-10-06] MEDS: LACTULOSE SYRUP 20 GM/30 ML UDC PO SCH ×2 (09:49→16:48)
[2017-10-06] MEDS: SPIRONOLACTONE 25 MG TAB PO SCH ×2 (09:49→16:48)
[2017-10-06] MEDS: FUROSEMIDE INJ 10 MG/ML 4 ML VIAL IV SCH ×2 (09:49→16:48)
[2017-10-06] MEDS: MIDODRINE HCL 5 MG TABLET PO SCH ×2 (09:49→16:48)
[2017-10-06] MEDS ORDERED: AMOXICILLIN875 MG PO (11:55)
--- NOTE | 2017-10-06 13:00 | Progress Note ---
DATE: October 06, 2017 INTERNAL MEDICINE PROGRESS NOTE This is coverage for Dr. Snider. SUBJECTIVE: Mr. Lewis was seen and examined at bedside. He continues to have slow progress. He has decreased dyspnea with walking. He is able to walk mostly independently. He is eating well. He has 100% oxygen saturations. Two liters per minute by nasal cannula oxygen. REVIEW OF SYSTEMS: Dull headache. Still no bleeding. OBJECTIVE VITAL SIGNS: Afebrile, vital signs noted per the chart record. GENERAL: No acute distress. Alert and cooperative. HEENT: Normocephalic, atraumatic. NECK: Supple, throat midline. LUNGS: Bilateral air entry is decreased, few rales. CARDIOVASCULAR: S1, S2. No murmurs, rubs, or gallops. ABDOMEN: Soft and nontender. EXTREMITIES: No clubbing, no cyanosis. There is 2 to 3+ leg edema. INTEGUMENT: No rash, no purpura. LAB: Labs pending. IMPRESSION AND PLAN 1. Pleural effusion, status post repair thoracentesis. Refractory. 2. Ascites, recurrent. 3. Cirrhosis. 4. Gastric cancer. 5. Weakness. 6. Hepatic encephalopathy, mostly stable and resolved for now. At this time we will continue to follow closely. Nebulizer treatments will be given due to small levels of wheezing the patient started. For now we will await response from the patient and family regarding the need for TIPS and location of TIPS. Will consider discharge planning knowing that the fluid will likely recur in a very rapid manner so he will need to continue his weekly drainages. Job#: [id number] [place]
[2017-10-07] VITALS (8 sets, daily range): BP systolic 106–125; BP diastolic 55–99
[2017-10-07] MEDS: RIFAXIMIN 550 MG TABLET PO SCH ×2 (01:13→16:00)
[2017-10-07 04:47] LABS: BASOPHILS % 0.6 % (0.0-1.0); EOSINOPHILS # (AUTO) 0.1 (0.0-0.4); EOSINOPHILS % 2.7 % (0.0-6.0); HEMATOCRIT 26.6 % (38.2-49.6); HEMOGLOBIN 9.2 g/dL (14.0-18.0); LYMPHOCYTES # (AUTO) 0.7 (1.0-3.2); LYMPHOCYTES % 19.2 % (18.0-39.1); MEAN CORPUSCULAR HEMOGLOBIN 30.2 pg (28-32); MEAN CORPUSCULAR HGB CONC 34.6 g/dL (31-35); MEAN CORPUSCULAR VOLUME 87.2 fL (81-99); MONOCYTES # (AUTO) 0.6 (0.2-0.8); MONOCYTES % 16.5 % (4.4-11.3); NEUTROPHILS % 59.5 % (38.7-80.0); PLATELET COUNT 53 x10e3/uL (140-360); RED BLOOD COUNT 3.05 x10e6/uL (4.3-5.7); RED CELL DISTRIBUTION WIDTH 19.9 % (11.7-14.4)
[2017-10-07 04:53] LABS: INR 2.13; PROTHROMBIN TIME 22.4 seconds (11.9-14.5)
[2017-10-07 05:01] LABS: ALANINE AMINOTRANSFERASE 47 IU/L (0-55); ALBUMIN 3.1 g/dL (3.5-5.0); ALBUMIN/GLOBULIN RATIO 1.1 (0.8-2.0); ALKALINE PHOSPHATASE 96 IU/L (40-150); ANION GAP 13.1 mmol/L (8-16); BLOOD UREA NITROGEN 10 mg/dL (7-26); BUN/CREATININE RATIO 10 (6-25); CARBON DIOXIDE 23 mmol/L (22-29); CHLORIDE 100 mmol/L (98-107); CREATININE, SERUM 0.98 mg/dL (0.72-1.25); EST GLOMERULAR FILTRATION RATE > 60 ML/MIN (60-); GLUCOSE 97 mg/dL (74-118); POTASSIUM 4.1 mmol/L (3.5-5.1); SODIUM 132 mmol/L (136-145)
[2017-10-07] MEDS: LACTULOSE SYRUP 20 GM/30 ML UDC PO SCH ×2 (09:00→17:11)
[2017-10-07] MEDS: SPIRONOLACTONE 25 MG TAB PO SCH ×2 (09:04→17:11)
[2017-10-07] MEDS: MIDODRINE HCL 5 MG TABLET PO SCH ×2 (09:04→17:11)
[2017-10-07] MEDS: FUROSEMIDE INJ 10 MG/ML 4 ML VIAL IV SCH ×2 (09:04→17:11)
[2017-10-07] MEDS ORDERED: SODIUM CHLORIDE 0.9% 250ML 250 ML ONE ×2 (09:59→10:56)
[2017-10-07] MEDS: CEFTRIAXONE SOD 1 GM VIAL IV SCH ×2 (10:00→22:20)
--- NOTE | 2017-10-07 11:20 | Progress Note ---
DATE: October 07, 2017 CARDIOLOGY PROGRESS NOTE SUBJECTIVE: No complaints. OBJECTIVE VITAL SIGNS: Temperature 97.6, heart rate 80, respiratory rate 20, blood pressure 108/67, O2 sat 99% on 2 liters per minute nasal cannula. GENERAL: No acute distress. Alert. NECK: No JVD. CHEST: Decreased breath sounds in bilateral bases. CARDIOVASCULAR: Regular rate and rhythm. Normal S1 and S2. ABDOMEN: Soft. Distended with ascites. No tenderness. EXTREMITIES: With 1+ edema, overall improving. MEDICATIONS: Include: 1. Furosemide 40 mg IV b.i.d. 2. Aldactone 100 mg b.i.d. 3. Lactulose. 4. Rifaximin. 5. Albuterol. 6. Zofran. STUDIES: White blood cells 3.3, hemoglobin 9.2, platelets 53. INR of 2.1. Sodium 132, potassium 4.1, chloride 100, bicarbonate 23. BUN 10, creatinine 0.98. Glucose 97, calcium 8. Total bilirubin is 4.1, AST 49, ALT 47, alkaline phos 96, total protein 5.8, albumin 3.1. Blood cultures drawn and pending. TELEMETRY: Sinus rhythm. ASSESSMENT 1. End-stage liver disease with esophageal varices, coagulopathy, ascites and hepatic hydrothorax as well as pancytopenia and electrolyte derangements including hyponatremia. 2. Acute diastolic heart failure in the setting of volume overload from the above. 3. Acute kidney injury. RECOMMENDATIONS: In discussions for possible TIPS per family members, they have discussed with the patient's treating oncologist for his hepatocellular carcinoma, who is advising against this due to high risk for encephalopathy. I concur with the encephalopathy risk; however, I feel there are limited options at this point. Consider hepatic hydrothorax management with video-assisted thoracoscopic possible pleurodesis if considered a candidate. Will defer this to CV surgery. Job#: [id number]
--- NOTE | 2017-10-07 13:13 | Progress Note ---
DATE: NEPHROLOGY PROGRESS NOTE SUBJECTIVE: Patient is doing well with no other complaints. He is scheduled for possible TIPS procedure later today. His labs from a renal standpoint look well. No overnight events. He has been afebrile. He is currently getting FFPs at this time for a TIPS procedure, which is being arranged by [facility]. LABORATORY DATA: Lab findings show white count 3.3, hemoglobin is 9.2, hematocrit is 26.6, platelets of 53. Coagulation: PT 22, INR 2.1. Chemistry: Sodium 132, potassium 4.1, chloride is 100, bicarb 23, anion gap of 13, BUN is 10, creatinine is 0.98, calcium is 8, total bilirubin is 4.1. AST 49, ALT 47, ammonia level is 92, albumin is 2.7. A 24-hour creatinine clearance was 49 mL per minute. PHYSICAL EXAMINATION VITAL SIGNS: Temperature is 97.6, pulse 80, respiratory rate is 21, pulse ox 99% on room air. GENERAL: Not in acute distress. Alert and oriented x3, cooperative on exam. HEENT: Head normocephalic, atraumatic. Eyes, pupils are equal, round, and reactive to light bilaterally. Extraocular movements intact bilaterally. Throat; no evidence of any erythema or exudates in the posterior pharynx, has poor dentition. NECK: Supple with good range of motion. PULMONARY: Clear to auscultation bilaterally. No wheezing, no rales, no rhonchi, no crackles appreciated. CARDIOVASCULAR: Positive S1, S2. No murmurs, rubs, or gallops appreciated. ABDOMEN: Soft, nondistended, and nontender to palpation. Bowel sounds present. MUSCULOSKELETAL: Strength is 5/5 throughout. No evidence of any musculoskeletal deficit on examination. No weakness appreciated. NEUROLOGICAL: Cranial nerves II through XII grossly intact. No evidence of any neurological deficits on exam. SKIN: Intact. Warm to touch. Good capillary refill. PSYCHIATRIC: Normal affect and mood. EXTREMITIES: He has trace to 1+ pedal edema bilateral lower extremities. IMPRESSION 1. Acute kidney injury secondary to hepatorenal syndrome type 2. 2. Hyponatremia. 3. Hypotension. 4. Pancytopenia. 5. Hepatocellular carcinoma with liver cirrhosis due to alcohol abuse. PLAN: At this time, I will just continue with the IV Lasix at this time. He is also scheduled for TIPS procedure, currently receiving FFPs. His blood pressure is stable. We can continue him on same dose of midodrine. We are going to get a.m. labs. His electrolytes and creatinine are stable. We will continue to follow with you. Job#: [id number] SUB
--- NOTE | 2017-10-07 14:15 | Diagnostic Imaging Report ---
EXAM: CHEST SINGLE (PORTABLE), AP 1 view INDICATION: Pleural effusion COMPARISON: Chest radiograph 10/06/17 FINDINGS: LINES/TUBES: None LUNGS: Decreasing right lower lobe atelectasis. Mild patchy left basilar atelectasis. No evidence of pulmonary edema. PLEURA: Interval decrease in size of right sided pleural effusion, now small in size. No evidence of pneumothorax. HEART AND MEDIASTINUM: Unchanged cardiomediastinal silhouette. BONES AND SOFT TISSUES: No acute findings. IMPRESSION: Status post right thoracentesis with interval decrease in size of right pleural effusion, now small. No evidence of pneumothorax. Decreasing right lower lobe atelectasis. Signed by: Dr. Karla Boston MD on 10/07/2017 2:11 PM
--- NOTE | 2017-10-07 14:20 | Diagnostic Imaging Report ---
Date and Time: 10/07/17 at 1330 Procedure: Ultrasound-guided right diagnostic and therapeutic thoracentesis printing machine operator: Dr. Karla Boston Pre-operative diagnosis: Right pleural effusion Post-operative diagnosis: Right pleural effusion Sedation: Local (1% subcutaneous lidocaine) Estimated blood loss: Minimal Implants: None DISCUSSION: Informed consent was obtained from the patient and documented in the medical record. The patient was placed in the upright position. The right posterior chest was prepped and draped in standard sterile fashion. 1% lidocaine was infiltrated into the skin and subcutaneous tissues for local anesthesia. Then under continuous sonographic guidance a 7 Fr catheter was advanced into the right pleural space. The catheter was advanced off the needle and connected to vacuum bottle with subsequent evacuation of 2400 cc of serosanguinous fluid. Note is made that the patient had prior recent thoracenteses with removal of 2000 cc of fluid with no post procedural issues, so decision made to perform larger volume thoracentesis today. The catheter was removed and a sterile, occlusive dressing was applied. Sample was sent to the lab. The patient tolerated the procedure well. FINDINGS: Large right pleural effusion. IMPRESSION: Ultrasound-guided right diagnostic and therapeutic thoracentesis with evacuation of 2400 cc of serosanguinous fluid. Signed by: Dr. Karla Boston MD on 10/07/2017 2:17 PM
[2017-10-07] MEDS ORDERED: TEMAZEPAM 15 MG CAP PO PRN (20:45)
[2017-10-07] MEDS ORDERED: ACETAMINOPHEN 325 MG TAB PO PRN (21:00)
[2017-10-08] VITALS (8 sets, daily range): BP systolic 102–121; BP diastolic 57–72
[2017-10-08] MEDS: RIFAXIMIN 550 MG TABLET PO SCH ×2 (02:04→14:40)
--- NOTE | 2017-10-08 02:41 | Progress Note ---
DATE: October 07, 2017 INTERNAL MEDICINE PROGRESS NOTE This is coverage for Dr. Snider. SUBJECTIVE: Mr. Lewis was seen and examined at bedside. The patient today went for repeat paracentesis. Successfully, they removed 2 L of pleural fluid output. He was able to walk. He ate 100% of his diet today. On 2 L per minute by nasal cannula, 99% oxygen saturation. The patient at this time is noted with complicating fever of 101.3. REVIEW OF SYSTEMS: No headaches, no constipation. OBJECTIVE VITAL SIGNS: Afebrile, vital signs noted per electronic record. GENERAL: No acute distress, alert and calm, just low in energy. HEENT: Normocephalic, atraumatic. NECK: Supple. Throat midline. LUNGS: Bilateral air entry, decreased breath sounds, especially on the left side. CARDIOVASCULAR: S1, S2. No murmurs, rubs or gallops. ABDOMEN: Soft, nontender. EXTREMITIES: No clubbing, no cyanosis. He still has 2+ edema. INTEGUMENT: No rash. No purpura. LABS: White count 4, hematocrit 36, platelets 53,000. INR is 2.1. Chemistry: Potassium 4.1, BUN 10, creatinine 0.9. Total bilirubin 4.1, albumin 3.1. IMPRESSION 1. Fever, either sepsis versus mild transfusion related reaction as he received fresh frozen plasma earlier. 2. Pleural effusions, recurrent. Status post thoracentesis today. 3. Ascites. 4. Cirrhosis. 5. Liver cancer. 6. Anemia. 7. Weakness. 8. Severe hyponatremia, resolved, well. 9. Thrombocytopenia. 10. Left-sided fluid overload. 11. Coagulopathy, predominantly due to liver disease. 12. Streptococcus viridans bacteremia. PLAN: Continue IV antibiotics at this time. Will follow along and get ID consult with the new fever. Hopefully, it is just from the FFP. We wish to limit and restrict blood products as much as possible. LFT is to be continued to be tracked. Family discussion, wants to defer TIPS at this time. The patient may be able to go home tomorrow if there is no evidence of severe infection. Will follow along closely. Job#: [id number]
[2017-10-08 05:37] LABS: BASOPHILS % 0.7 % (0.0-1.0); EOSINOPHILS # (AUTO) 0.1 (0.0-0.4); EOSINOPHILS % 2.2 % (0.0-6.0); HEMATOCRIT 26.3 % (38.2-49.6); HEMOGLOBIN 8.9 g/dL (14.0-18.0); LYMPHOCYTES # (AUTO) 0.6 (1.0-3.2); LYMPHOCYTES % 22.6 % (18.0-39.1); MEAN CORPUSCULAR HEMOGLOBIN 30.5 pg (28-32); MEAN CORPUSCULAR HGB CONC 33.8 g/dL (31-35); MEAN CORPUSCULAR VOLUME 90.1 fL (81-99); MONOCYTES # (AUTO) 0.4 (0.2-0.8); MONOCYTES % 15.7 % (4.4-11.3); NEUTROPHILS # (AUTO) 1.6 (2.1-6.9); NEUTROPHILS % 57.7 % (38.7-80.0); RED BLOOD COUNT 2.92 x10e6/uL (4.3-5.7); RED CELL DISTRIBUTION WIDTH 19.8 % (11.7-14.4)
[2017-10-08 05:41] LABS: PLATELET COUNT 46 x10e3/uL (140-360)
[2017-10-08 05:52] LABS: ANION GAP 11.6 mmol/L (8-16); BLOOD UREA NITROGEN 10 mg/dL (7-26); BUN/CREATININE RATIO 13 (6-25); CALCIUM 7.8 mg/dL (8.4-10.2); CARBON DIOXIDE 22 mmol/L (22-29); CHLORIDE 100 mmol/L (98-107); CREATININE, SERUM 0.76 mg/dL (0.72-1.25); EST GLOMERULAR FILTRATION RATE > 60 ML/MIN (60-); GLUCOSE 90 mg/dL (74-118); POTASSIUM 3.6 mmol/L (3.5-5.1); SODIUM 130 mmol/L (136-145)
[2017-10-08] MEDS: LACTULOSE SYRUP 20 GM/30 ML UDC PO SCH ×2 (09:22→17:34)
[2017-10-08] MEDS: MIDODRINE HCL 5 MG TABLET PO SCH ×2 (09:22→17:34)
[2017-10-08] MEDS: FUROSEMIDE INJ 10 MG/ML 4 ML VIAL IV SCH (09:22)
[2017-10-08] MEDS: SPIRONOLACTONE 25 MG TAB PO SCH ×2 (10:44→17:34)
[2017-10-08] MEDS: CEFTRIAXONE SOD 1 GM VIAL IV SCH (13:00)
[2017-10-08] MEDS ORDERED: SPIRONOLACTONE 25 MG TAB PO SCH (17:00)
--- NOTE | 2017-10-08 17:26 | Progress Note ---
DATE: October 08, 2017 NEPHROLOGY PROGRESS NOTE SUBJECTIVE: Patient is doing well. He had a temperature of 101.3 T-max. Current temperature is 96.5. Source of fever unknown at this time. Pulse is 60. Respiratory rate 18. Blood pressure 111/68. OBJECTIVE VITAL SIGNS: Temperature is 96.5, pulse 60, respiratory rate 18, blood pressure 111/68, pulse ox 97% on room air. LAB FINDINGS: White count 2.7, hemoglobin 8.9, hematocrit 2.3, platelets 46. Coagulations are INR 2.1 and PT 22. Chemistries: Sodium 130, potassium 3.6, chloride 100, bicarb 22, anion gap 11, BUN 10, creatinine 0.76, calcium 7.8. MICROBIOLOGY: Blood cultures showed Streptococcus viridans, but repeat blood cultures are found to be negative. IMAGING STUDIES: None. PHYSICAL EXAMINATION GENERAL: Not in acute distress. Alert and oriented x3, cooperative on examination. HEENT: Head is normocephalic, atraumatic. Eyes: Pupils are equal, round, and reactive to light bilaterally. Extraocular movements are intact bilaterally. NECK: Supple with good range of motion. THROAT: No evidence of any erythema or exudates in the posterior pharynx, has poor dentition. PULMONARY: Clear to auscultation bilaterally. No wheezing, no rales, no rhonchi, no crackles appreciated. CARDIOVASCULAR: Positive S1, S2. No murmurs or gallops appreciated. ABDOMEN: Soft, nondistended, and nontender to palpation. Bowel sounds present. MUSCULOSKELETAL: Strength is 5/5 throughout. No evidence of any new muscular deficit on examination. No weakness appreciated. NEUROLOGICAL: Cranial nerves II through XII grossly intact. No evidence of any neurological deficits on exam. SKIN: Intact. Warm to touch. Good capillary refill. PSYCHIATRIC: Normal affect and mood. EXTREMITIES: No edema. Good range of motion throughout. IMPRESSION 1. Acute kidney injury secondary to hepatorenal syndrome, type 2. 2. Hyponatremia. 3. Hypotension. 4. Pancytopenia. 5. Hepatocellular carcinoma with liver cirrhosis due to alcohol abuse. PLAN: At this time, I will still continue with diuretics including Lasix and Aldactone. The patient had a thoracentesis performed yesterday with much improvement in respiratory status. He now has a fever of unknown etiology for which he is currently on broad-spectrum antibiotics with repeat blood cultures. Otherwise, the electrolytes and creatinine are stable. Will continue to follow with you. His sodium is low at 130, but this is pretty consistent in patients with hepatorenal syndrome. Will continue to monitor very closely. Job#: [id number]
--- NOTE | 2017-10-08 18:54 | Progress Note ---
DATE: October 08, 2017 CARDIOLOGY PROGRESS NOTE SUBJECTIVE: No complaints today. Had a febrile episode yesterday with no report yesterday. Blood cultures negative x48 hours so far. OBJECTIVE VITAL SIGNS: Temperature 97.3, heart rate 76, respiratory rate 18, blood pressure 102/57, O2 sat 97% on room air. GENERAL: No acute distress, alert. NECK: No JVD. CHEST: Decreased breath sounds at bilateral bases. CARDIOVASCULAR: Regular rate and rhythm. Normal S1, S2. No S3, S4. No murmurs or rubs. ABDOMEN: Soft, nontender. EXTREMITIES: Trace edema to bilateral lower extremities. STUDIES: White blood cells 2.7, hemoglobin 8.9, platelets 46. Creatinine 0.76, potassium 3.6, sodium 130, glucose 90. ASSESSMENT 1. End-stage liver disease. 2. Hepatocellular carcinoma. 3. Acute renal failure, improved. 4. Asterixis on exam today. 5. Recent febrile episode, pending final blood culture results. RECOMMENDATIONS 1. Patient declining transhepatic portosystemic shunt given concerns for encephalopathy. 2. Volume status seems to be improved somewhat with diuretics. 3. Discussed with patient a low-salt diet. Today, he is eating fried chicken along with other salt heavy meals. 4. Fluid restriction advised. 5. For acute diastolic heart failure, this is in the setting of volume overload. Continue volume management. Job#: [id number] SUB
--- NOTE | 2017-10-08 20:55 | Consultation ---
DATE OF CONSULTATION: REASON FOR CONSULTATION: Fever, bacteremia. HISTORY OF PRESENT ILLNESS: Thank you so much for asking us to see this patient. This patient who is a 67-year-old white male comes on October 02, 2017 to [facility]. The patient is a 67-year-old, who has history of liver disease, history of smoking, history of alcoholism, end-stage liver disease, liver cancer, followed by MD Spears by GI and oncology. Had paracentesis on Tuesday. Thoracocentesis was done on Tuesday. He has been followed by Dr. Gio Call. He is on chronic diuretics, comes in with ascites, just not feeling well, shortness of breath. when the patient first came, he had no fever. He came for shortness of breath. Patient was admitted with diagnosis of hyponatremia, ascites, fluid overload, right lower lobe atelectasis, recent thoracocentesis, right pleural effusion, liver cancer, end-stage liver disease, acute kidney injury, and anemia. Patient was admitted on October 02. He was seen by GI, was seen by critical care. He was seen by Dr. Gio Call, Dr. Oliva Roman, and Dr. Gregorio. The patient had fever on October 07. Infectious disease was consulted. His blood cultures on October 02 grew Streptococcus viridans. Patient was started on Rocephin on October 08. Infectious disease was consulted. Review of systems when I saw the patient, he was doing well, he has no complaints, his family at the bedside, his daughter at the bedside. He is weak, but he denies any complaints at the present time. PAST MEDICAL HISTORY: As above. PAST SURGICAL HISTORY: As above. ALLERGIES: NKA. REVIEW OF SYSTEMS HEENT: Negative. PULMONARY: Negative. CARDIAC: Negative. : Negative. GI: Negative. SKIN: There is no other rash. PHYSICAL EXAMINATION GENERAL: He is currently alert, oriented, does not seem to be in acute distress. VITALS: Stable, currently afebrile. HEENT: Normocephalic, atraumatic. He is a little bit pale, a little bit icteric. NECK: Supple. No JVD, no carotid bruit, no thyromegaly. CHEST: Clear bilaterally. HEART: S1 and S2. No S3, S4, murmur. ABDOMEN: Soft. Bowel sounds present. No tenderness, no hepatosplenomegaly. EXTREMITIES: No edema. SKIN: There is no rash. IMPRESSIONS 1. Fever, bacteremia, . Agree with Rocephin. Recheck her blood cultures. He will need probably 14 days of antibiotic. Will see how this will do. 2. Liver cirrhosis. 3. Acute kidney injury. 4. Further recommendations to follow. Job#: [id number] CQ
[2017-10-09] VITALS (7 sets, daily range): BP systolic 108–125; BP diastolic 68–80
[2017-10-09] MEDS: CEFTRIAXONE SOD 1 GM VIAL IV SCH ×2 (00:09→12:14)
[2017-10-09] MEDS: RIFAXIMIN 550 MG TABLET PO SCH ×2 (01:54→14:49)
[2017-10-09] MEDS: LACTULOSE SYRUP 20 GM/30 ML UDC PO SCH ×2 (09:34→17:06)
[2017-10-09] MEDS: SPIRONOLACTONE 25 MG TAB PO SCH ×2 (09:34→17:06)
[2017-10-09] MEDS: FUROSEMIDE INJ 10 MG/ML 4 ML VIAL IV SCH (09:34)
[2017-10-09] MEDS: MIDODRINE HCL 5 MG TABLET PO SCH ×2 (09:35→17:06)
--- NOTE | 2017-10-09 10:56 | Progress Note ---
DATE: October 09, 2017 CARDIOLOGY PROGRESS NOTE SUBJECTIVE: No complaints. OBJECTIVE VITALS: Temperature 97.8, heart rate 71, respiratory rate 18, blood pressure 108/68, and O2 sat 100%. GENERAL: In no acute distress. Alert. NECK: No JVD. CHEST: Clear to auscultation. CARDIOVASCULAR: Regular rate and rhythm. Normal S1 and S2. No S3 or S4. ABDOMEN: Distended. EXTREMITIES: Trace edema. MEDICATIONS: Reviewed. On spironolactone and Lasix. STUDIES: Studies reviewed. None for today. ASSESSMENT 1. End-stage liver disease. 2. Hepatocellular carcinoma. 3. Asterixis. 4. Status post acute renal failure. 5. Right hepatic hydrothorax. RECOMMENDATIONS 1. Overall, volume status improved. Continue fluid restriction. 2. Again, instructed importance of low-salt diet. 3. Continue diuretics. 4. Overall guarded prognosis. 5. Follow up as outpatient with his ball truing machine operator, cosmetics machine operator. Advised also with nephrology, cardiology and primary care and oncologist. Job#: [id number] RAJ
--- NOTE | 2017-10-09 19:09 | Progress Note ---
DATE: NEPHROLOGY PROGRESS NOTE SUBJECTIVE: The patient is doing well with no complaints. He reports having some wheezing today with no other issues. He was scheduled to be discharged today, but awaiting final discharge from the primary team. OBJECTIVE VITAL SIGNS: Temperature is 96.9, pulse 76, respiratory rate is 18, blood pressure is 112/71, and pulse ox 99% on room air. LAB FINDINGS: Show white count is 2.4, hemoglobin 8.9, hematocrit is 26, platelets of 46,000. Chemistry: Sodium 130, potassium 3.6, chloride 100, bicarb is 22, anion gap of 11, BUN is 10, creatinine is 0.76, glucose is 90. MICROBIOLOGY: None. IMAGING STUDIES: None. PHYSICAL EXAMINATION GENERAL: Not in acute distress, alert and oriented times 3. Cooperative on examination. HEENT: Head is normocephalic, atraumatic. Eyes, pupils are equal and reactive to light bilaterally. Extraocular movements intact bilaterally. Posterior pharynx has poor dentition. NECK: Supple. Good range of motion throughout. No evidence of any erythema, exudates. PULMONARY: Clear to auscultation bilaterally. No wheezing, no rales, no rhonchi, no crackles appreciated. CARDIOVASCULAR: Positive S1, S2. No murmurs, rubs or gallops appreciated. ABDOMEN: Soft, nondistended, nontender to palpation. Bowel sounds present. MUSCULOSKELETAL: Strength is 5/5 throughout. No evidence of any muscle deficits on examination. No weakness appreciated. NEUROLOGICAL: Cranial nerves II through XII grossly intact. No evidence of any neurological deficits on exam. SKIN: Intact. Warm to touch. Good capillary refill. PSYCHIATRIC: Normal affect and mood. EXTREMITIES: No edema. Good range of motion throughout. IMPRESSION 1. Acute kidney injury secondary to hepatorenal syndrome type 2. 2. Hyponatremia. 3. Hypotension. 4. Pancytopenia. 5. Hepatocellular carcinoma with liver cirrhosis due to alcohol abuse. PLAN: At this time, the patient is doing much better. Sodium at 130 is usually the norm for the patient's with hepatorenal syndrome. We are going to continue with Lasix and Aldactone. Continue with IV broad-spectrum antibiotics. Monitor cultures. Get morning labs. No indication for RT at this time. Job#: [id number]
[2017-10-10] VITALS: BP 124/72
[2017-10-10] MEDS: CEFTRIAXONE SOD 1 GM VIAL IV SCH ×2 (00:04→12:35)
[2017-10-10] MEDS: RIFAXIMIN 550 MG TABLET PO SCH (02:03)
[2017-10-10 04:25] VITALS: BP 122/74
[2017-10-10 07:54] VITALS: BP 115/65
[2017-10-10 08:30] VITALS: BP 115/65
[2017-10-10] MEDS: LACTULOSE SYRUP 20 GM/30 ML UDC PO SCH (08:32)
[2017-10-10] MEDS: MIDODRINE HCL 5 MG TABLET PO SCH (08:32)
[2017-10-10] MEDS: SPIRONOLACTONE 25 MG TAB PO SCH (08:32)
[2017-10-10] MEDS: FUROSEMIDE INJ 10 MG/ML 4 ML VIAL IV SCH (08:32)
--- NOTE | 2017-10-10 10:26 | Progress Note ---
DATE: October 10, 2017 CARDIOLOGY PROGRESS NOTE SUBJECTIVE: No complaints. OBJECTIVE VITALS: Temperature 96.2, heart rate 70, respiratory rate 19, blood pressure 115/65, O2 sat 99% on 2 L per minute nasal cannula. GENERAL: No acute distress. Alert. NECK: No JVD. CHEST: Clear to auscultation. CARDIOVASCULAR: Regular rate and rhythm. Normal S1 and S2. No S3. No S4. No murmurs. No rubs. ABDOMEN: Soft. Distended and nontender. Bowel sounds positive. EXTREMITIES: Trace edema. CARDIOVASCULAR MEDICATIONS 1. Spironolactone 100 mg b.i.d. 2. Furosemide 40 mg IV daily. 3. Rifaximin 550 mg q.12 h. STUDIES: For today, none currently available. Telemetry is normal sinus rhythm. ASSESSMENT 1. Acute kidney injury secondary to hepatorenal syndrome, type 2. 2. Hyponatremia. 3. Pancytopenia. 4. Hepatocellular carcinoma. 5. End-stage liver disease in the setting of history of alcohol use. 6. Acute renal failure, now improved. 7. Status post recent febrile episode. 8. Asterixis on exam. 9. Blood cultures negative times 72 hours. RECOMMENDATIONS: Okay to discharge from a cardiovascular standpoint. Outpatient followup in 4-6 weeks. Job#: [id number] RAJ
[2017-10-10 11:32] VITALS: BP 104/67
--- NOTE | 2017-10-10 12:52 | Discharge Summary ---
PRIMARY CARE DOCTOR: Dr. Ann Marie Waldrop. 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 SECONDARY DIAGNOSES 1. Hyponatremia. 2. Cirrhosis. 3. Hepatocellular carcinoma. CONSULTANTS 1. Dr. Gregorio, head baker. 2. Dr. Call, manager lsw. 3. Dr. Bustamante, cardiothoracic surgeon. 4. Dr. Reese, GI. 5. Dr. Elizondo, infectious disease. PROCEDURES/STUDIES PERFORMED: Right-sided thoracentesis x2. HISTORY: Per H\T\P. HOSPITAL COURSE: Patient was admitted, underwent right-sided thoracentesis, did well. Unfortunately, this came back again and this was repeated again. Initially patient also had Streptococcus viridans in his blood. Patient was put on IV Rocephin. He did well. When patient was about to be discharged, patient had a fever. Patient was evaluated by Infectious Disease. Blood culture was repeated, and this time it was negative. The patient remained afebrile, will be going home on p.o. antibiotics per infectious disease recommendation. Patient will continue on Aldactone 100 mg p.o. b.i.d. and Lasix 40 mg p.o. b.i.d. He received IV Lasix while in the hospital. Patient will continue on carvedilol. However, he needed midodrine to avoid hypotension. Patient was seen and examined today, took 32 minutes total to discharge this patient. CONDITION ON DISCHARGE: Improved. DISCHARGE MEDICATIONS: Please see medication reconciliation form. TANG JOSHUA M.D. Job#: [id number] EV cc:ANN MARIE WALDROP MD
[2017-10-10] MEDS ORDERED: LEVAQUIN500 MG PO (14:01)
[2017-10-10] MEDS ORDERED: MIDODRINE HCL2.5 MG PO (14:04)
[2017-10-10] MEDS ORDERED: LACTULOSE20 GM/30 M PO (14:04)
--- NOTE | 2017-10-10 14:37 | Progress Note ---
DATE: October 10, 2017 NEPHROLOGY PROGRESS NOTE SUBJECTIVE: Patient is doing well today with no complaints. He is actually in the process of being discharged. OBJECTIVE VITAL SIGNS: Temperature is 96, pulse 77, respiratory rate is 16, blood pressure is 104/67, pulse ox 98% on room air. LAB FINDINGS: Show a white count 2.7, hemoglobin 8.9, hematocrit is 26, platelets of 46. Coagulation: PT 22, INR 2.1, and PTT is 40.1. Chemistry: Sodium 130, potassium 3.6, chloride is 100, bicarb 22, anion gap of 11, BUN is 10, creatinine is 0.76. PHYSICAL EXAMINATION GENERAL: Not in acute distress. Alert, oriented x3, cooperative on examination. HEENT: Head: Normocephalic, atraumatic. Eyes: Pupils equally round and reactive to light bilaterally. Extraocular movements intact bilaterally. Neck was supple with good range of motion. Throat: No evidence of any erythema or exudates in the posterior pharynx. Has poor dentition. PULMONARY: Clear to auscultation bilaterally. No wheezing, no rales, no rhonchi, no crackles appreciated. CARDIOVASCULAR: Positive S1/S2. No murmurs, rubs or gallops appreciated. ABDOMEN: Soft, nondistended, nontender to palpation. Bowel sounds present. MUSCULOSKELETAL: Strength is 5/5 throughout. No evidence of any musculoskeletal deficit on examination. No weakness appreciated. NEUROLOGICAL: Cranial nerves 2-12 grossly intact. No evidence of any neurological deficit on exam. SKIN: Intact. Warm to touch. Good capillary refill. PSYCHIATRIC: Normal affect and mood. EXTREMITIES: No edema. Good range of motion throughout. IMPRESSION 1. Acute kidney injury secondary to hepatorenal syndrome type 2. 2. Hyponatremia. 3. Hypotension. 4. Pancytopenia. 5. Hepatocellular carcinoma with liver cirrhosis due to alcohol abuse. PLAN: At this time patient will go home today and he can continue with Lasix 40 mg p.o. b.i.d. as well as Aldactone 100 mg p.o. b.i.d. as recommended by GI. From a renal standpoint he needs to follow up with a front load trash truck driver within 1 week. He can continue same home medications except for the diuretics that were adjusted accordingly here in the hospital. Otherwise patient has been cleared for discharge from a renal standpoint. Job#: [id number] EV
== END 2017-10-10 14:44 | disposition home or self-care (01) | DRG 432 ==
LOC: ER 09:13 → ERHOLD 11:01 → IMCU 10-04 13:53 → MED/SURG3 10-07 14:35
PROVIDERS: ADMIT Internal Medicine; ATTEND Internal Medicine
PROC: 0W993ZX Drainage of Right Pleural Cavity, Percutaneous Approach, Diagnostic (ICD-10-PCS; principal; 2017-10-05)
PROC: 30233K1 Transfusion of Nonautologous Frozen Plasma into Peripheral Vein, Percutaneous Approach (ICD-10-PCS; 2017-10-05)
PROC: 0W993ZX Drainage of Right Pleural Cavity, Percutaneous Approach, Diagnostic (ICD-10-PCS; 2017-10-07)
DX: K70.31 Alcoholic cirrhosis of liver with ascites (principal); I50.31 Acute diastolic (congestive) heart failure; J94.8 Other specified pleural conditions; C22.0 Liver cell carcinoma; K76.6 Portal hypertension; I85.10 Secondary esophageal varices without bleeding; N39.0 Urinary tract infection, site not specified; D68.9 Coagulation defect, unspecified; E87.1 Hypo-osmolality and hyponatremia; D61.818 Other pancytopenia; N17.9 Acute kidney failure, unspecified; Z68.41 Body mass index [BMI] 40.0-44.9, adult; R78.81 Bacteremia; F10.21 Alcohol dependence, in remission; K72.10 Chronic hepatic failure without coma; E87.5 Hyperkalemia; E88.09 Other disorders of plasma-protein metabolism, not elsewhere classified; Z87.891 Personal history of nicotine dependence; E66.01 Morbid (severe) obesity due to excess calories; B95.4 Other streptococcus as the cause of diseases classified elsewhere
CPT/HCPCS: 32555; 36415; 36430; 71045; 80048; 80053; 80076; 81001; 82140; 82550; 82553; 82575; 83605; 83615; 83735; 83880; 84100; 84157; 84300; 84443; 84478; 84484; 84550; 85025; 85610; 85730; 86850; 86900; 87040; 87071; 87086; 87205; 88112; 88305; 93005; 93306; 93970; 94640; 99285; J0696; J1940; J2353; J2354; J2405; J7050; P9017; P9047

== ENCOUNTER → 2017-10-18 | Outpatient (CLI) | payer MEDICARE ==
[~2017-10-18] MED LIST changes: +AMOXICILLIN875 MG PO; +LACTULOSE20 GM/30 M PO; +LEVAQUIN500 MG PO; +MIDODRINE HCL2.5 MG PO
[2017-10-18 07:42] LABS: INR 1.62; PROTHROMBIN TIME 18.1 seconds (11.9-14.5)
[2017-10-18 07:43] LABS: PARTIAL THROMBOPLASTIN TIME 39.9 seconds (23.8-35.5)
--- NOTE | 2017-10-18 09:55 | Diagnostic Imaging Report ---
PROCEDURE: CHEST XRAY POST PROCEDURE COMPARISON: 10/07/2017. INDICATIONS: POST THORACENTESIS FINDINGS: The lungs are well-inflated. Residual small right pleural effusion with adjacent passive atelectasis of the lower and middle lobes. No pneumothorax. Left lung is clear. Normal heart size with tortuous thoracic aorta. No overt pulmonary edema. No acute osseous abnormality. CONCLUSION: Status post right thoracentesis with small residual right pleural effusion. No pneumothorax. Dictated by: Otoniel Napier M.D. on 10/18/2017 at 8:45 Electronically approved by: Otoniel Napier M.D. on 10/18/2017 at 8:45
--- NOTE | 2017-10-18 14:21 | Diagnostic Imaging Report ---
PROCEDURE: CHEST XRAY POST PROCEDURE COMPARISON: Chest radiograph A at 0816. INDICATIONS: POST THORACENTESIS-2 HOUR FINDINGS: See conclusion CONCLUSION: Stable appearance of the chest relative to the examination from 2 hours prior with a small residual right pleural effusion. No pneumothorax. Dictated by: Otoniel Napier M.D. on 10/18/2017 at 10:40 Electronically approved by: Otoniel Napier M.D. on 10/18/2017 at 10:40
--- NOTE | 2017-10-18 14:21 | Diagnostic Imaging Report ---
PROCEDURE: ULTRASOUND GUIDED THORACENTESIS COMPARISON: Prior thoracentesis 10/07/2017. INDICATIONS:Hepatic Hydrothorax Sedation/anesthesia: None Additional medications: Lidocaine 1% for local anesthesia Complications: No immediate Estimated blood loss: Minimal Blood products administered: None Specimens: 2400 cc serosanguinous right pleural fluid Implants/grafts: None Condition at completion: Stable Disposition: Radiology holding area FINDINGS: After informed consent was obtained, the patient was placed in the sitting position and preliminary ultrasound of the posterior chest identified a safe route into the right pleural effusion. The overlying skin was prepped and draped in usual sterile fashion. Lidocaine 1% was used for local anesthesia. Under ultrasound guidance, a 5 Vietnamese [employer] needle catheter was advanced into the pleural space. The catheter was advanced off the needle and connected to vacuum bottle, with subsequent evacuation of 2400 cc of serosanguineous fluid. The catheter was removed and a sterile, occlusive dressing was applied. The patient tolerated the procedure well and there were no immediate post-procedural complications. A post-thoracentesis chest radiograph will be obtained. CONCLUSION: Uncomplicated ultrasound-guided right thoracentesis with removal of 2400 cc of serosanguineous fluid. Dictated by: Otoniel Napier M.D. on 10/18/2017 at 8:47 Electronically approved by: Otoniel Napier M.D. on 10/18/2017 at 8:47
== END ==
LOC: US 06:02
PROVIDERS: ATTEND Internal Medicine Critical Care Medicine
DX: J94.8 Other specified pleural conditions (principal)
CPT/HCPCS: 32555; 36415; 71045; 85049; 85610; 85730

== ENCOUNTER → 2017-10-25 | Outpatient (CLI) | payer MEDICARE ==
--- NOTE | 2017-10-25 14:57 | Diagnostic Imaging Report ---
Examination: Single AP view of the chest. COMPARISON: AP chest 10/18/2017 INDICATION: Post right thoracentesis IMPRESSION: 1. Lines and Tubes: None 2. Interval decrease in size of previously visualized right-sided pleural effusion. No pneumothorax. 3. Cardiomediastinal silhouette is normal. Pulmonary vasculature is normal. 4. No acute bony abnormalities. Signed by: Dr. Sal Brooks M.D. on 10/25/2017 2:54 PM
--- NOTE | 2017-10-25 15:04 | Diagnostic Imaging Report ---
PROCEDURE: Right thoracentesis. CLINICAL HISTORY: Right pleural effusion. BUCKLE STAPLER: Sal Brooks M.D. MEDICATION: None. EBL: <1 cc. DISCUSSION: Sonographic evaluation of the right chest was performed, showing a moderate-sized right pleural effusion. The patient's right upper back was prepped and draped in sterile fashion after informed consent was obtained and the procedure was explained to the patient. 1% lidocaine was utilized for local anesthesia. Under ultrasonic guidance, a 5 [place] [employer] centesis needle was advanced to the right pleural cavity, and documented on ultrasound. Approximately 2400 cc of bloody cloudy pleural fluid were removed. The patient tolerated the procedure well and there were no immediate postprocedure complications. IMPRESSION: 1. Successful ultrasound-guided right-sided thoracentesis. 2. Follow-up chest x-ray pending Signed by: Dr. Sal Brooks M.D. on 10/25/2017 3:01 PM
--- NOTE | 2017-10-25 15:12 | Diagnostic Imaging Report ---
EXAM: Limited Abdominal Ultrasound INDICATION: \[id number] \S\[id number] \S\CIRRHOSIS ASCITES COMPARISON: None. TECHNIQUE: Transverse and longitudinal images of the upper abdomen were obtained. FINDINGS: The patient was initially scheduled for paracentesis. Transverse and longitudinal images of the abdomen showed only a small amount of fluid in the right upper quadrant, insufficient for drainage. IMPRESSION: Small amount of ascites in the right upper quadrant, insufficient for drainage. Signed by: Dr. Sal Brooks M.D. on 10/25/2017 3:09 PM
== END ==
LOC: US 13:17
PROVIDERS: ATTEND Internal Medicine Critical Care Medicine
DX: J90 Pleural effusion, not elsewhere classified (principal)
CPT/HCPCS: 32555; 71045; 76705

== ENCOUNTER 2017-10-30 17:40 | Inpatient (IN) | payer MEDICARE ==
[~2017-10-30] VITALS: Ht 172.7 cm; Wt 108.4 kg
[2017-10-30] MEDS: ALBUTEROL/IPRATROPIUM 3 ML NEB NEB SCH (01:00)
[2017-10-30] MEDS ORDERED: VENTOLIN HFA18 GM INH (18:04)
[2017-10-30] MEDS ORDERED: LASIX40 MG PO (18:04)
[2017-10-30] MEDS ORDERED: MAGNESIUM OTC PO (18:04)
[2017-10-30 18:11] LABS: BASOPHILS # (AUTO) 0.1 (0.0-0.1); BASOPHILS % 1.1 % (0.0-1.0); EOSINOPHILS # (AUTO) 0.5 (0.0-0.4); HEMATOCRIT 30.6 % (38.2-49.6); HEMOGLOBIN 10.8 g/dL (14.0-18.0); LYMPHOCYTES # (AUTO) 1.3 (1.0-3.2); MEAN CORPUSCULAR HEMOGLOBIN 30.8 pg (28-32); MEAN CORPUSCULAR HGB CONC 35.3 g/dL (31-35); MEAN CORPUSCULAR VOLUME 87.2 fL (81-99); MONOCYTES # (AUTO) 0.8 (0.2-0.8); MONOCYTES % 10.9 % (4.4-11.3); NEUTROPHILS # (AUTO) 4.8 (2.1-6.9); NEUTROPHILS % 63.1 % (38.7-80.0); PLATELET COUNT 86 x10e3/uL (140-360); RED BLOOD COUNT 3.51 x10e6/uL (4.3-5.7); RED CELL DISTRIBUTION WIDTH 19.5 % (11.7-14.4)
[2017-10-30 18:26] LABS: INR 1.63; PROTHROMBIN TIME 18.2 seconds (11.9-14.5)
[2017-10-30 18:27] LABS: PARTIAL THROMBOPLASTIN TIME 37.7 seconds (23.8-35.5)
[2017-10-30 18:34] LABS: ALBUMIN 2.8 g/dL (3.5-5.0); ALBUMIN/GLOBULIN RATIO 0.8 (0.8-2.0); ANION GAP 16.1 mmol/L (8-16); CALCIUM 8.1 mg/dL (8.4-10.2); CREATININE, SERUM 1.66 mg/dL (0.72-1.25); POTASSIUM 5.1 mmol/L (3.5-5.1)
[2017-10-30 18:40] LABS: CREATINE KINASE MB 4.4 ng/mL (0-5.0)
--- NOTE | 2017-10-30 19:02 | Diagnostic Imaging Report ---
EXAMINATION: CHEST SINGLE (PORTABLE) INDICATION: \S\sob \[id number] \S\[id number] COMPARISON: Chest radiograph 10/25/2017 FINDINGS: AP view TUBES and LINES: None. LUNGS: Lungs are well inflated. Right lung obscured by the pleural effusion. No consolidations in the left lung. Interstitial edema. PLEURA: Large right pleural effusion, increased since prior exam. No pneumothorax. HEART AND MEDIASTINUM: The cardiomediastinal silhouette is unremarkable.. BONES AND SOFT TISSUES: No acute osseous lesion. Soft tissues are unremarkable. UPPER ABDOMEN: No free air under the diaphragm. IMPRESSION: Large right pleural effusion obscures underlying pathology. Signed by: Dr. Farheen Tapia M.D. on 10/30/2017 6:59 PM
[2017-10-30] MEDS ORDERED: SODIUM CHLORIDE FLUSH 10 ML SYR INJ PRN (19:45)
[2017-10-30] MEDS ORDERED: ONDANSETRON HCL INJ 2 MG/ML VIAL IV PRN (19:45)
[2017-10-30] MEDS: FUROSEMIDE INJ 10 MG/ML 4 ML VIAL IV SCH (19:53)
[2017-10-30] MEDS ORDERED: SODIUM CHLORIDE 1 GM TAB PO ONE (20:00)
[2017-10-30 23:48] VITALS: BP 104/70
[2017-10-30 23:49] VITALS: BP 104/70
[2017-10-31] VITALS (7 sets, daily range): BP systolic 92–125; BP diastolic 57–84
[2017-10-31] MEDS: ALBUTEROL/IPRATROPIUM 3 ML NEB NEB SCH ×6 (04:10→23:35)
[2017-10-31 04:53] LABS: BASOPHILS # (AUTO) 0.1 (0.0-0.1); BASOPHILS % 1.1 % (0.0-1.0); EOSINOPHILS # (AUTO) 0.5 (0.0-0.4); EOSINOPHILS % 6.6 % (0.0-6.0); HEMATOCRIT 29.7 % (38.2-49.6); HEMOGLOBIN 10.5 g/dL (14.0-18.0); LYMPHOCYTES # (AUTO) 1.8 (1.0-3.2); LYMPHOCYTES % 24.4 % (18.0-39.1); MEAN CORPUSCULAR HEMOGLOBIN 30.8 pg (28-32); MEAN CORPUSCULAR HGB CONC 35.4 g/dL (31-35); MEAN CORPUSCULAR VOLUME 87.1 fL (81-99); MONOCYTES # (AUTO) 0.9 (0.2-0.8); MONOCYTES % 12.6 % (4.4-11.3); NEUTROPHILS # (AUTO) 3.9 (2.1-6.9); NEUTROPHILS % 54.9 % (38.7-80.0); PLATELET COUNT 75 x10e3/uL (140-360); RED BLOOD COUNT 3.41 x10e6/uL (4.3-5.7); RED CELL DISTRIBUTION WIDTH 19.2 % (11.7-14.4)
[2017-10-31 05:07] LABS: INR 1.66; PROTHROMBIN TIME 18.4 seconds (11.9-14.5)
[2017-10-31 05:08] LABS: PARTIAL THROMBOPLASTIN TIME 39.7 seconds (23.8-35.5)
[2017-10-31 05:29] LABS: ALBUMIN 2.7 g/dL (3.5-5.0); ALBUMIN/GLOBULIN RATIO 0.8 (0.8-2.0); ANION GAP 14.3 mmol/L (8-16); CALCIUM 8.3 mg/dL (8.4-10.2); CREATININE, SERUM 1.48 mg/dL (0.72-1.25); POTASSIUM 5.3 mmol/L (3.5-5.1)
[2017-10-31] MEDS ORDERED: MIDODRINE 2.5 MG TAB PO SCH (09:00)
[2017-10-31] MEDS ORDERED: SPIRONOLACTONE 25 MG TAB PO SCH (09:00)
[2017-10-31] MEDS ORDERED: LEVOFLOXACIN 500 MG TAB PO SCH (09:00)
[2017-10-31] MEDS ORDERED: SODIUM CHLORIDE 1 GM TAB PO SCH (09:00)
[2017-10-31] MEDS: FUROSEMIDE INJ 10 MG/ML 4 ML VIAL IV SCH (09:50)
[2017-10-31] MEDS: LACTULOSE SYRUP 20 GM/30 ML UDC PO SCH ×2 (09:50→16:20)
--- NOTE | 2017-10-31 10:09 | Diagnostic Imaging Report ---
EXAMINATION: CHEST SINGLE (PORTABLE) INDICATION: \S\s/p thoracentesis \[id number] \S\[id number] \S\Y COMPARISON: Chest radiograph 10/30/2017 FINDINGS: AP view TUBES and LINES: None. LUNGS: Lungs are well inflated. Right lower lobe consolidation. No consolidations in the left lung. Interstitial edema. PLEURA: Moderate right pleural effusion, decreased after thoracentesis. No pneumothorax. HEART AND MEDIASTINUM: The cardiomediastinal silhouette is unremarkable. BONES AND SOFT TISSUES: No acute osseous lesion. Soft tissues are unremarkable. UPPER ABDOMEN: No free air under the diaphragm. IMPRESSION: Interval decreased right pleural effusion, now moderate, after thoracentesis. No pneumothorax. Right lower lobe consolidation may be due to atelectasis or pneumonia. Continued interval follow-up. Signed by: Dr. Farheen Tapia M.D. on 10/31/2017 10:06 AM
--- NOTE | 2017-10-31 10:57 | Diagnostic Imaging Report ---
PROCEDURE: ULTRASOUND GUIDED THORACENTESIS COMPARISON: Multiple prior thoracentesis procedures; chest radiograph 10/30/2017. INDICATIONS:RT PLEURAL EFFUSION FINDINGS: After informed consent was obtained, the patient was placed in the sitting position and preliminary ultrasound of the posterior chest identified a safe route into the right pleural effusion. The overlying skin was prepped and draped in usual sterile fashion. Lidocaine 1% was used for local anesthesia. Under ultrasound guidance, a 5 Turkish Yueh needle was advanced into the pleural space. The catheter was advanced up needle and connected to vacuum bottle with subsequent evacuation of 2400 cc laura-colored fluid. The catheter was removed and a sterile, occlusive dressing was applied. The patient tolerated the procedure well and there were no immediate post-procedural complications. A post-thoracentesis chest radiograph will be obtained. CONCLUSION: Uncomplicated ultrasound-guided right thoracentesis with removal of 2400 cc laura-colored fluid. Dictated by: Otoniel Napier M.D. on 10/31/2017 at 9:47 Electronically approved by: Otoniel Napier M.D. on 10/31/2017 at 9:47
[2017-10-31] MEDS ORDERED: ALBUTEROL SULFATE HFA 8GM INHALATION AEROSOL INH PRN (12:15)
--- NOTE | 2017-10-31 13:29 | Consultation ---
DATE OF CONSULTATION: October 31, 2017 PULMONARY/CRITICAL CARE CONSULTATION PRIMARY PHYSICIAN: Porfirio Waldrop MD REFERRING PHYSICIAN: Dr. Snider HISTORY OF PRESENT ILLNESS: The patient is a 67-year-old man with end-stage cirrhosis and hepatocellular carcinoma. He was previously treated at [facility] [place] but exhausted all the available treatments. He has problems with recurrent ascites and hepatic hydrothorax. He has required recurrent thoracenteses. He came to the emergency department complaining of worsening dyspnea. Chest x-ray showed an enlarging right pleural effusion. He denied any fever or cough. He went for a thoracentesis and feels much better at this time. PAST MEDICAL HISTORY 1. Cirrhosis. 2. Hepatocellular carcinoma. 3. Hepatic hydrothorax. SOCIAL HISTORY: The patient is not an active drinker or smoker. FAMILY HISTORY: Noncontributory. REVIEW OF SYSTEMS: The patient is afebrile. He has no headache or neck pain. He is not having any chest pain. He does report some dyspnea. He is not having any abdominal pain. There is some leg swelling. There is no fever. He has no focal neurological complaints. PHYSICAL EXAMINATION VITALS: The patient is afebrile. Vital signs are stable. HEENT: Examination shows no facial swelling or erythema. Nasal mucosa is normal. CARDIAC: Regular rate and rhythm with normal S1 and S2. There are no murmurs or rubs. LUNGS: Auscultation of the lungs reveals decreased breath sounds at the bases. ABDOMEN: Slightly distended with ascites. EXTREMITIES: There is 1 to 2+ leg edema. IMPRESSION 1. Recurrent hepatic hydrothorax. 2. Cirrhosis. 3. Hyponatremia. 4. Coagulopathy secondary to cirrhosis. 5. Esophageal varices secondary to cirrhosis. PLAN 1. Patient underwent ultrasound-guided thoracentesis. 2. He is not a candidate for VATS procedure. He may be a candidate for a pleural catheter with home drainage. 3. Fluid restriction. 4. Spironolactone. 5. Rifaximin. 6. Lactulose. 7. Avoid excessive amounts of Lasix, as this could precipitate hepatorenal syndrome. 8. Discussed with Dr. Snider and with the patient. Job#: [id number]
[2017-10-31] MEDS: RIFAXIMIN 550 MG TABLET PO SCH ×2 (16:20→20:15)
[2017-10-31] MEDS: MIDODRINE HCL 5 MG TABLET PO SCH (16:20)
[2017-10-31] MEDS ORDERED: MIDODRINE HCL 5 MG TABLET PO SCH (17:00)
[2017-11-01] VITALS (8 sets, daily range): BP systolic 98–116; BP diastolic 61–75
[2017-11-01] MEDS: ALBUTEROL/IPRATROPIUM 3 ML NEB NEB SCH ×6 (03:45→23:10)
[2017-11-01 04:59] LABS: BASOPHILS # (AUTO) 0.1 (0.0-0.1); EOSINOPHILS # (AUTO) 0.5 (0.0-0.4); EOSINOPHILS % 7.9 % (0.0-6.0); HEMATOCRIT 27.4 % (38.2-49.6); HEMOGLOBIN 9.6 g/dL (14.0-18.0); LYMPHOCYTES # (AUTO) 1.2 (1.0-3.2); LYMPHOCYTES % 20.9 % (18.0-39.1); MEAN CORPUSCULAR HEMOGLOBIN 30.4 pg (28-32); MEAN CORPUSCULAR VOLUME 86.7 fL (81-99); MONOCYTES # (AUTO) 0.8 (0.2-0.8); MONOCYTES % 13.5 % (4.4-11.3); NEUTROPHILS # (AUTO) 3.3 (2.1-6.9); NEUTROPHILS % 56.4 % (38.7-80.0); PLATELET COUNT 67 x10e3/uL (140-360); RED BLOOD COUNT 3.16 x10e6/uL (4.3-5.7); RED CELL DISTRIBUTION WIDTH 19.4 % (11.7-14.4)
[2017-11-01 05:19] LABS: ANION GAP 15.3 mmol/L (8-16); CALCIUM 8.1 mg/dL (8.4-10.2); CREATININE, SERUM 1.57 mg/dL (0.72-1.25); POTASSIUM 5.3 mmol/L (3.5-5.1)
[2017-11-01 05:58] LABS: ALBUMIN 2.5 g/dL (3.5-5.0); BILIRUBIN,DIRECT 2.2 mg/dL (0.0-0.5)
--- NOTE | 2017-11-01 06:28 | Diagnostic Imaging Report ---
CHEST SINGLE (PORTABLE), 11/01/2017 5:29 AM Technique: CHEST SINGLE (PORTABLE) Comparison: 10/31/2017 Clinical history: Hepatic hydrothorax Findings: See Impression Impression: 1. Persistent moderate right pleural effusion with associated atelectasis. 2. Stable visualized cardiac and mediastinal contours. Signed by: Dr Radha Bey MD on 11/01/2017 6:24 AM
[2017-11-01] MEDS: RIFAXIMIN 550 MG TABLET PO SCH ×2 (08:09→20:44)
[2017-11-01] MEDS: LACTULOSE SYRUP 20 GM/30 ML UDC PO SCH ×2 (08:09→17:28)
[2017-11-01] MEDS: MIDODRINE HCL 5 MG TABLET PO SCH ×3 (08:09→17:28)
[2017-11-01] MEDS ORDERED: FUROSEMIDE INJ 10 MG/ML 4 ML VIAL IV SCH (09:00)
[2017-11-01] MEDS ORDERED: BUMETANIDE 1 MG TAB PO SCH (17:00)
[2017-11-02] VITALS (8 sets, daily range): BP systolic 106–131; BP diastolic 56–68
[2017-11-02] MEDS: ALBUTEROL/IPRATROPIUM 3 ML NEB NEB SCH ×5 (02:12→19:13)
[2017-11-02 05:42] LABS: BASOPHILS # (AUTO) 0.1 (0.0-0.1); BASOPHILS % 0.8 % (0.0-1.0); EOSINOPHILS # (AUTO) 0.4 (0.0-0.4); EOSINOPHILS % 6.7 % (0.0-6.0); HEMATOCRIT 26.4 % (38.2-49.6); HEMOGLOBIN 9.4 g/dL (14.0-18.0); LYMPHOCYTES % 16.2 % (18.0-39.1); MEAN CORPUSCULAR HEMOGLOBIN 30.5 pg (28-32); MEAN CORPUSCULAR HGB CONC 35.6 g/dL (31-35); MEAN CORPUSCULAR VOLUME 85.7 fL (81-99); MONOCYTES # (AUTO) 0.8 (0.2-0.8); MONOCYTES % 13.3 % (4.4-11.3); NEUTROPHILS # (AUTO) 3.8 (2.1-6.9); NEUTROPHILS % 62.8 % (38.7-80.0); PLATELET COUNT 62 x10e3/uL (140-360); RED BLOOD COUNT 3.08 x10e6/uL (4.3-5.7); RED CELL DISTRIBUTION WIDTH 19.4 % (11.7-14.4)
[2017-11-02 06:08] LABS: ANION GAP 11.9 mmol/L (8-16); CALCIUM 7.9 mg/dL (8.4-10.2); CREATININE, SERUM 1.54 mg/dL (0.72-1.25); MAGNESIUM 1.4 MG/DL (1.3-2.1); POTASSIUM 4.9 mmol/L (3.5-5.1)
--- NOTE | 2017-11-02 06:25 | Diagnostic Imaging Report ---
CHEST SINGLE (PORTABLE), 11/02/2017 5:29 AM Technique: CHEST SINGLE (PORTABLE) Comparison: Previous day Clinical history: Effusion Findings: See Impression Impression: 1. Stable moderate right pleural effusion with associated atelectasis. Mild linear left basilar opacity, likely atelectasis. 2. Stable visualized cardiomediastinal contours. Signed by: Dr Radha Bey MD on 11/02/2017 6:21 AM
[2017-11-02] MEDS: MIDODRINE HCL 5 MG TABLET PO SCH ×3 (08:40→17:10)
[2017-11-02] MEDS: BUMETANIDE 1 MG TAB PO SCH ×2 (08:40→17:10)
[2017-11-02] MEDS: RIFAXIMIN 550 MG TABLET PO SCH ×2 (08:40→20:58)
[2017-11-02] MEDS: LACTULOSE SYRUP 20 GM/30 ML UDC PO SCH ×2 (08:40→17:10)
[2017-11-02] MEDS ORDERED: SODIUM CHLORIDE 1 GM TAB PO NR (09:00)
[2017-11-02] MEDS ORDERED: FUROSEMIDE 40 MG TAB PO SCH (09:00)
--- NOTE | 2017-11-02 09:18 | Consultation ---
DATE OF CONSULTATION: NEPHROLOGY CONSULTATION REASON FOR CONSULTATION: Hepatorenal syndrome, type 2, hyponatremia and volume management. HPI: This is a 67-year-old male, morbidly obese, with known history of hepatorenal syndrome, type 2, who is known to my service in which I have seen him on a prior admission, who comes into the ED due to worsening dyspnea. Chest x-ray was consistent with right pleural effusion. It seems that the patient is very noncompliant with his oral diuretics. He denies any cough, congestion or fever at home. He had underwent thoracentesis while here. He is breathing much better now. Apparently, in the past he has been to [facility], but exhausted all available treatments. The patient was seen and evaluated at the bedside on the medical floor. Currently, doing well with no other complaints. His sodium level was 123, which dropped. He is currently on oral Bumex. He is volume restricted to 1 L. REVIEW OF SYSTEMS: Pertinent positives are dyspnea, shortness of breath, pleural effusion. Pertinent negatives: Denies any chest pain, palpitations, nausea, vomiting, diarrhea, dysuria, hematuria, frequency, urgency, lightheadedness, dizziness, abdominal pain, headache, fever, cough, congestion, or any other complaints. The rest of the 14-point review of systems have been reviewed with the patient and are negative. ALLERGIES: NO KNOWN DRUG ALLERGIES. HOME MEDICATIONS: He takes: 1. Lactulose 40 g b.i.d. 2. Furosemide 40 mg b.i.d. 3. Albuterol inhaler 2 puffs inhaled p.r.n. 4. Levaquin 500 mg p.o. daily for 10 days. 5. Midodrine 5 mg p.o. b.i.d. 6. Rifaximin 550 mg p.o. q.12 h. 7. Aldactone 50 mg p.o. b.i.d. PAST MEDICAL HISTORY: Hepatorenal syndrome, hypertension, morbidly obese, hepatocellular carcinoma of the liver, HRS, type 2. SURGICAL HISTORY: Reports none. FAMILY HISTORY: Hypertension, diabetes. SOCIAL HISTORY: No drugs. Currently, does not drink. No smoking. Good social support. PHYSICAL EXAMINATION VITAL SIGNS: Temperature is 97.6, pulse 79, respiratory rate 20, blood pressure 108/58, pulse ox 98% on room air. GENERAL: Not in acute distress. Alert and oriented times 3. Cooperative on examination. HEENT: Head is normocephalic and atraumatic. Eyes: Pupils equal, round and reactive to light bilaterally. Extraocular movements intact bilaterally. NECK: Supple. Good range of motion. Throat with no evidence of any erythema or exudates in the posterior pharynx. Has poor dentition. PULMONARY: Clear to auscultation bilaterally. No wheezing. No rales. No rhonchi. No crackles appreciated. CARDIOVASCULAR: Positive S1 and S2. No murmurs, rubs or gallops appreciated. ABDOMEN: Soft but distended and nontender to palpation. Bowel sounds present. MUSCULOSKELETAL: Strength is 5/5 throughout. No evidence of any muscle deficit on examination. No weakness appreciated. NEUROLOGICAL: Cranial nerves II-XII are grossly intact. No evidence of any neurological deficits on exam. SKIN: Intact. Warm to touch. Good cap refill. PSYCHIATRIC: Normal affect and mood. EXTREMITIES: No edema. Good range of motion throughout. LAB FINDINGS: Show white count is 6.1, hemoglobin 9.4, hematocrit 26, and platelets of 62,000. Chemistry: Sodium 123, potassium 4.9, chloride 93, bicarb 23, anion gap of 11, BUN is 28, creatinine 1.5, total bilirubin 4.3, direct bilirubin is 2.2. AST 102, ALT 59, alk phos 167, total protein 5.9. MICROBIOLOGY: None. IMAGING STUDIES: Chest x-ray shows stable moderate right pleural effusion with associated atelectasis. Mild linear left basilar opacity. IMPRESSION 1. Acute kidney injury secondary to hepatorenal syndrome, type 2. 2. Hyponatremia. 3. Anemia. 4. Hepatocellular carcinoma. 5. Coagulopathy secondary to cirrhosis. 6. Esophageal varices secondary to cirrhosis. PLAN: At this time, I will increase the Bumex to 2 mg p.o. b.i.d. Give sodium chloride tabs 2 g p.o. times 1 now. Repeat sodium level at 1700 hours. Volume restriction at 1 L is appropriate. Will continue with Aldactone. Continue with rifaximin, lactulose. The patient still has evidence of pulmonary edema seen on chest x-ray. It is vital to get this fluid off, which he did have a thoracentesis while here already. He is otherwise doing well and stable. If the sodium level this afternoon is low, will give another dose of sodium chloride tabs and monitor very closely. Otherwise, will continue to follow. Also, his blood pressure is relatively low. I will continue with oral midodrine. Job#: [id number] RI
--- NOTE | 2017-11-02 14:59 | Progress Note ---
DATE: PULMONARY PROGRESS NOTE SUBJECTIVE: The patient and family are considering a Pleur-evac tube for persistent pleural fluid. This would obviate the need for repeat thoracenteses. OBJECTIVE VITAL SIGNS: Stable. HEENT: Examination shows no facial swelling or erythema. The nasal mucosa is normal. The oropharynx is normal. LYMPHATIC: Examination shows no submandibular, cervical or supraclavicular adenopathy. NECK: Shows no JVD or thyromegaly. There is no nuchal rigidity. CARDIAC: Exam reveals a regular rate and rhythm with a normal S1 and S2. There are no murmurs or rubs. LUNGS: Auscultation reveals decreased breath sounds on the right side. ABDOMEN: Soft. There is some mild ascites. EXTREMITIES: There is some leg edema. IMPRESSION 1. Hepatic hydrothorax. 2. Cirrhosis. 3. Hyponatremia. 4. Esophageal varices. 5. Coagulopathy secondary to liver disease. PLAN 1. We are awaiting a CT Surgery consultation for a possible Pleur-evac tube. 2. Continue rifaximin and midodrine. 3. Continue diuretics with spironolactone and lactulose. 4. Monitor sodium. 5. Restrict free water intake. 6. Discussed with Dr. Snider, the patient and the family. Job#: [id number] EV
[2017-11-02] MEDS: SODIUM CHLORIDE 1 GM TAB PO SCH (20:58)
[2017-11-02] MEDS: BUMETANIDE INJ 0.25MG/ML 4ML VIAL IV SCH (20:58)
[2017-11-03] VITALS (7 sets, daily range): BP systolic 102–145; BP diastolic 56–68
--- NOTE | 2017-11-03 01:43 | Consultation ---
DATE OF CONSULTATION: November 02, 2017 REASON FOR CONSULT: Hepatic pleural effusion, hepatorenal syndrome; requested by Dr. Callum Snider. HISTORY: I saw and evaluated this patient on November 02, 2017. He is a 67-year-old man who has end-stage cirrhosis and hepatocellular carcinoma. He has been treated at [facility]. He has recurrent ascites and hepatic hydrothorax. He has had recurrent thoracentesis over the past months, but has recurrent effusion again. He came to the emergency room with worsening dyspnea. Chest x-ray showed an enlarging right pleural effusion. This is similar to previous presentations. There is no fever or cough. He had a thoracentesis. Now, evaluation is requested for possible surgical intervention. PAST MEDICAL HISTORY: Positive for hepatocellular carcinoma, cirrhosis, hepatic hydrothorax, hepatorenal syndrome, hypertension, obesity. SURGICAL HISTORY: Unremarkable. FAMILY HISTORY: Positive for hypertension and diabetes. Negative for hepatocellular carcinoma. SOCIAL HISTORY: Negative for smoking or IV drugs. He quit alcohol. He has a supportive family. MEDICATIONS: Include lactulose, Lasix, albuterol inhaler, Levaquin, midodrine, rifaximin, and Aldactone. ALLERGIES: NONE KNOWN. REVIEW OF SYSTEMS GENERAL: Positive for fatigue and malaise. NEUROLOGIC: Negative for focal weakness in the extremities. HEENT: Negative for decreased vision or decreased hearing. CARDIAC: Negative for chest pain or palpitations. PULMONARY: Positive shortness of breath. Negative for wheezing. GI: No constipation or diarrhea. : Negative for hematuria or dysuria. ENDOCRINE: Negative for polyuria or polydipsia. VASCULAR: Negative for claudication. SKIN: Negative for rashes or erythema. HEMATOLOGIC: Negative for clotting or bleeding. INFECTIOUS: Negative for fever or sweating. PSYCHIATRIC: Negative for depression or anxiety. PHYSICAL EXAMINATION GENERAL: A well-developed, well-nourished man sitting up in bed. Female family member is at the bedside. VITAL SIGNS: Blood pressure 130/70, pulse 80 and regular, respirations 16 and unlabored. NECK: Supple and nontender. No JVD. CARDIAC: Shows a regular rate and rhythm. There is a normal S1 and S2. There is no S3, S4, rub, or murmur. LUNGS: Decreased breath sounds at both bases, but worse on the right. Scattered wheezes. ABDOMEN: Globoid and nontender. Positive for fluid wave. Distended. Soft umbilical hernia. BACK: No CVA tenderness. No muscular spasms. EXTREMITIES: Two plus edema to the knees bilaterally. SKIN: No rashes. MUSCULOSKELETAL: Full range of motion at all joints. No evidence of swelling. NEUROLOGIC: Cranial nerves II-XII intact. Sensation intact to light touch and pinprick bilaterally. Strength is 5/5 in all extremities. LYMPHATICS: Negative for cervical, clavicular, femoral adenopathy. LABORATORY: White count is 6.1, hemoglobin 9.4, hematocrit 26.4, and platelet count 62,000. INR is 1.66 with PT of 18.4 and PTT 39.7. Sodium 122, potassium 4.9, BUN 28, creatinine 1.54. Liver function tests are elevated with alkaline phosphatase of 180, ALT 63 and AST 105. Total protein is 6.3 with albumin of 2.7. IMPRESSION: Difficult problem with hepatic hydrothorax secondary to hepatocellular carcinoma and hepatic failure. The patient has been having repeated thoracenteses. He is felt to have exhausted all treatment modalities at [facility]. Symptomatic treatment of his hepatic hydrothorax might be best. If a chest tube inserted, it might be impossible to remove. Another option might be a pleural vascular shunt, but these procedures have been marked by problems with coagulopathy. The patient is already somewhat coagulopathic with PT of 18 and INR of 1.66. Will discuss with his other physicians. Thank you very much for asking me to see this nice man. Job#: [id number] [place]
[2017-11-03] MEDS: ALBUTEROL/IPRATROPIUM 3 ML NEB NEB SCH ×7 (03:20→23:40)
[2017-11-03 05:17] LABS: BASOPHILS # (AUTO) 0.1 (0.0-0.1); BASOPHILS % 1.3 % (0.0-1.0); EOSINOPHILS # (AUTO) 0.5 (0.0-0.4); HEMATOCRIT 29.2 % (38.2-49.6); HEMOGLOBIN 10.4 g/dL (14.0-18.0); LYMPHOCYTES # (AUTO) 1.3 (1.0-3.2); LYMPHOCYTES % 18.9 % (18.0-39.1); MEAN CORPUSCULAR HEMOGLOBIN 30.7 pg (28-32); MEAN CORPUSCULAR HGB CONC 35.6 g/dL (31-35); MEAN CORPUSCULAR VOLUME 86.1 fL (81-99); MONOCYTES # (AUTO) 1.1 (0.2-0.8); MONOCYTES % 15.3 % (4.4-11.3); NEUTROPHILS % 56.9 % (38.7-80.0); PLATELET COUNT 78 x10e3/uL (140-360); RED BLOOD COUNT 3.39 x10e6/uL (4.3-5.7); RED CELL DISTRIBUTION WIDTH 19.4 % (11.7-14.4)
[2017-11-03 05:35] LABS: INR 1.67; PROTHROMBIN TIME 18.5 seconds (11.9-14.5)
[2017-11-03 05:36] LABS: PARTIAL THROMBOPLASTIN TIME 38.2 seconds (23.8-35.5)
[2017-11-03 05:44] LABS: ALBUMIN 2.6 g/dL (3.5-5.0); ANION GAP 13.3 mmol/L (8-16); BILIRUBIN,DIRECT 2.4 mg/dL (0.0-0.5); CALCIUM 8.3 mg/dL (8.4-10.2); CREATININE, SERUM 2.08 mg/dL (0.72-1.25); POTASSIUM 5.3 mmol/L (3.5-5.1)
--- NOTE | 2017-11-03 06:34 | Diagnostic Imaging Report ---
CHEST SINGLE (PORTABLE), 11/03/2017 5:29 AM Technique: CHEST SINGLE (PORTABLE) Comparison: Previous day Clinical history: Pleural effusion Findings: See Impression Impression: 1. Stable moderate right pleural effusion with associated atelectasis. 2. Stable visualized cardiomediastinal silhouette. Signed by: Dr Radha Bey MD on 11/03/2017 6:31 AM
[2017-11-03] MEDS: SODIUM CHLORIDE 1 GM TAB PO SCH ×2 (08:00→17:00)
[2017-11-03] MEDS: RIFAXIMIN 550 MG TABLET PO SCH ×2 (08:00→21:00)
[2017-11-03] MEDS: MIDODRINE HCL 5 MG TABLET PO SCH ×3 (08:00→17:00)
[2017-11-03] MEDS: BUMETANIDE INJ 0.25MG/ML 4ML VIAL IV SCH ×2 (08:00→21:00)
[2017-11-03] MEDS: LACTULOSE SYRUP 20 GM/30 ML UDC PO SCH ×2 (08:00→17:00)
--- NOTE | 2017-11-03 10:45 | Progress Note ---
DATE: November 03, 2017 NEPHROLOGY PROGRESS NOTE SUBJECTIVE: Patient is doing well today. He was evaluated by Dr. Bustamante for possible pleurodesis procedure, but seems to be not a good surgical candidate. From a nephrology standpoint, he has good urine output. His sodium has increased to 125. He is still on volume restriction. He is eating bananas which I told them not to eat anymore bananas leading to his hyperkalemia. His creatinine is 2, which is gradually increasing. OBJECTIVE/PHYSICAL EXAMINATION: VITAL SIGNS: Temperature is 97.4, pulse 91, respiratory rate is 20, blood pressure is 102/60. His pulse ox is 98% on room air. GENERAL: Not in acute distress, alert and oriented x3, cooperative on examination. HEENT: Head: Normocephalic, atraumatic. Eyes: Pupils equal, round, and reactive to light bilaterally. Extraocular movements intact bilaterally. Throat: No evidence of any erythema or exudates in the posterior pharynx. Has poor dentition. NECK: Supple with good range of motion. PULMONARY: Clear to auscultation bilaterally. No wheezing, no rales, no rhonchi, no crackles appreciated. CARDIOVASCULAR: Positive S1 and S2. No murmurs, rubs, or gallops appreciated. ABDOMEN: Soft, nondistended, nontender to palpation. Bowel sounds present. MUSCULOSKELETAL: Strength is 5/5 throughout. No evidence of any musculoskeletal deficit on examination. No weakness appreciated. NEUROLOGICAL: Cranial nerves II through XII are grossly intact. EXTREMITIES: No edema. Good range of motion throughout. PSYCHIATRIC: Normal affect and mood. LAB FINDINGS: Showed white count is 7, hemoglobin 10, hematocrit is 29, platelets of 78,000. Chemistry: Sodium 125, potassium is 5.3, chloride 92, bicarb 25, anion gap of 13, BUN 31, creatinine is 2, glucose 98, calcium 8.3. His LFTs, AST 108, ALT 66, alk phos 182, total bilirubin is 2.4. MICROBIOLOGY: None. IMAGING STUDIES: None. IMPRESSION: 1. Acute kidney injury secondary to hepatorenal syndrome type 2, now creatinine is 2. 2. Hyponatremia. 3. Anemia. 4. Hepatocellular carcinoma. 5. Coagulopathy secondary to cirrhosis. 6. Esophageal varices secondary to cirrhosis. PLAN: At this time, I am going to go ahead and decrease the Bumex to 1 mg IV b.i.d. He was already given some salt tabs this morning. I will give him another salt tab later this afternoon. Repeat sodium level at 1700 hours. Continue with volume restriction at 1 liter. If his sodium does not improve, I will consider tolvaptan 15 mg p.o. x1. He is a good candidate for tolvaptan considering his decompensated liver failure and his low sodium as well. His blood pressure is low which could be leading to his underlying elevation in creatinine. I also educated the patient about a low potassium diet that he is currently eating bananas and his potassium is 5.3. Job#: [id number]
[2017-11-03] MEDS: ALBUMIN 25% 25GM 100 ML IV SCH ×2 (12:00→18:00)
[2017-11-03] MEDS ORDERED: ALBUMIN 25% 25GM 0.25 GM/ML BTL IV SCH (12:00)
[2017-11-03 18:30] LABS: CALCIUM 8.5 mg/dL (8.4-10.2); CREATININE, SERUM 2.17 mg/dL (0.72-1.25)
[2017-11-04] VITALS (8 sets, daily range): BP systolic 90–129; BP diastolic 50–66
[2017-11-04] MEDS: ALBUTEROL/IPRATROPIUM 3 ML NEB NEB SCH ×7 (03:00→22:10)
[2017-11-04] MEDS: ALBUMIN 25% 25GM 100 ML IV SCH ×2 (05:27)
[2017-11-04 06:04] LABS: BASOPHILS # (AUTO) 0.1 (0.0-0.1); EOSINOPHILS # (AUTO) 0.4 (0.0-0.4); EOSINOPHILS % 7.7 % (0.0-6.0); HEMATOCRIT 26.6 % (38.2-49.6); HEMOGLOBIN 9.4 g/dL (14.0-18.0); LYMPHOCYTES # (AUTO) 1.1 (1.0-3.2); LYMPHOCYTES % 23.5 % (18.0-39.1); MEAN CORPUSCULAR HEMOGLOBIN 30.7 pg (28-32); MEAN CORPUSCULAR HGB CONC 35.3 g/dL (31-35); MEAN CORPUSCULAR VOLUME 86.9 fL (81-99); MONOCYTES # (AUTO) 0.6 (0.2-0.8); MONOCYTES % 12.1 % (4.4-11.3); NEUTROPHILS # (AUTO) 2.7 (2.1-6.9); NEUTROPHILS % 55.5 % (38.7-80.0); PLATELET COUNT 64 x10e3/uL (140-360); RED BLOOD COUNT 3.06 x10e6/uL (4.3-5.7); RED CELL DISTRIBUTION WIDTH 19.5 % (11.7-14.4)
--- NOTE | 2017-11-04 07:02 | Diagnostic Imaging Report ---
EXAM: XR CHEST 1 VIEW DATE: 11/04/2017 5:29 AM INDICATION: Effusion COMPARISON: 11/03/2017, no report available. FINDINGS: Lines and Tubes: None Heart and Mediastinum: Heart is enlarged. Lungs and Pleura: Moderate pleural parenchymal opacity right mid and lower lung obscuring right heart border and right lung base, stable. Findings likely represent combination of pleural fluid with atelectasis and/or pneumonia. Not significant change. Bones and Soft Tissues: No acute findings. IMPRESSION: 1. Moderate right effusion with superimposed atelectasis and/or pneumonia, stable. Underlying malignancy not excluded. Radiographic follow-up and/or contrast-enhanced CT recommended. Signed by: Dr. Kris Martin MD on 11/04/2017 6:59 AM
[2017-11-04] MEDS: MIDODRINE HCL 5 MG TABLET PO SCH ×3 (08:00→17:23)
[2017-11-04] MEDS ORDERED: TOLVAPTAN 15 MG TAB PO ONE (09:15)
[2017-11-04] MEDS: RIFAXIMIN 550 MG TABLET PO SCH ×2 (09:26→21:00)
[2017-11-04] MEDS: BUMETANIDE INJ 0.25MG/ML 4ML VIAL IV SCH ×2 (09:26→21:30)
[2017-11-04] MEDS: LACTULOSE SYRUP 20 GM/30 ML UDC PO SCH ×2 (09:26→17:23)
[2017-11-04] MEDS: SODIUM CHLORIDE 1 GM TAB PO SCH (09:26)
--- NOTE | 2017-11-04 09:59 | Progress Note ---
DATE: November 04, 2017 NEPHROLOGY PROGRESS NOTE SUBJECTIVE: Patient is doing well with no other complaints. Sodium is still 126 on salt tabs, but with minimal improvement. He is asymptomatic at this time. OBJECTIVE VITAL SIGNS: Temperature is 96.6, pulse is 80, respiratory rate is 19, blood pressure is 106/52, pulse ox 100% on room air. GENERAL: Not in acute distress. Alert and oriented times 3. Cooperative on examination. HEENT: Head is normocephalic and atraumatic. Eyes: Pupils equal, round and reactive to light bilaterally. Extraocular movements intact bilaterally. NECK: Supple. Good range of motion. Throat with no evidence of any erythema or exudates in the posterior pharynx. Has poor dentition. PULMONARY: Clear to auscultation bilaterally. No wheezing. No rales. No rhonchi. No crackles appreciated. CARDIOVASCULAR: Positive S1 and S2. No murmurs, rubs or gallops appreciated. ABDOMEN: Soft, nondistended and nontender to palpation. Bowel sounds present. MUSCULOSKELETAL: Strength is 5/5 throughout. No evidence of any muscle deficit on examination. No weakness appreciated. NEUROLOGICAL: Cranial nerves II-XII are grossly intact. No evidence of any neurological deficits on exam. SKIN: Intact. Warm to touch. Good cap refill. PSYCHIATRIC: Normal affect and mood. EXTREMITIES: No edema. Good range of motion throughout. LAB FINDINGS: Show white count of 4.8, hemoglobin 9.4, hematocrit 26, and platelets of 64,000. Chemistry: Sodium is 126, potassium 5, chloride 92, bicarb 22, anion gap 17, BUN 31, creatinine is stable at 2.1. MICROBIOLOGY: None. IMAGING STUDIES: Chest x-ray with moderate right effusion with superimposed atelectasis and/or pneumonia. IMPRESSION 1. Acute kidney injury secondary to hepatorenal syndrome, type 2: Creatinine is 2.1. 2. Hyponatremia: Sodium 126. 3. Anemia. 4. Hepatocellular carcinoma. 5. Coagulopathy secondary to cirrhosis. 6. Thrombocytopenia. 7. Esophageal varices secondary to cirrhosis. PLAN: At this time, his sodium is barely 126. Will continue with the salt tabs. He has 1 more additional dose. I will go ahead and give him tolvaptan 15 mg p.o. times 1 only. Continue with the Bumex as well for now. I am going to repeat a sodium level at 1700 hours today. I discussed with nursing staff to call me with the sodium level. Otherwise, repeat sodium level in the morning as well. Job#: [id number] RI
[2017-11-04] MEDS ORDERED: TOLVAPTAN 30 MG TAB PO NR (10:00)
[2017-11-04] MEDS ORDERED: TOLVAPTAN 30 MG TAB PO ONE (12:30)
[2017-11-04] MEDS ORDERED: BISACODYL 5 MG TAB EC PO ONE (14:45)
[2017-11-05] VITALS (7 sets, daily range): BP systolic 97–147; BP diastolic 51–85
[2017-11-05] MEDS: ALBUTEROL/IPRATROPIUM 3 ML NEB NEB SCH ×6 (02:00→22:50)
[2017-11-05 05:56] LABS: ANION GAP 17.5 mmol/L (8-16); CREATININE, SERUM 1.69 mg/dL (0.72-1.25); POTASSIUM 4.5 mmol/L (3.5-5.1)
[2017-11-05] MEDS: BUMETANIDE INJ 0.25MG/ML 4ML VIAL IV SCH ×2 (09:16→20:30)
[2017-11-05] MEDS: LACTULOSE SYRUP 20 GM/30 ML UDC PO SCH ×2 (09:16→17:53)
[2017-11-05] MEDS: MIDODRINE HCL 5 MG TABLET PO SCH ×3 (09:16→17:53)
[2017-11-05] MEDS: RIFAXIMIN 550 MG TABLET PO SCH ×2 (09:16→20:30)
--- NOTE | 2017-11-05 10:38 | Progress Note ---
DATE: November 05, 2017 NEPHROLOGY PROGRESS NOTE SUBJECTIVE: Patient is doing well with no complaints. He is eager to be discharged home today. Sodium level much improved with tolvaptan. OBJECTIVE/PHYSICAL EXAMINATION: VITAL SIGNS: Temperature is 97.4, pulse 87, respiratory rate is 18, blood pressure currently 97/56, pulse ox 94% on room air. GENERAL: Not in acute distress, alert and oriented x3, cooperative on examination. HEENT: Head: Normocephalic, atraumatic. Eyes: Pupils equal, round, and reactive to light bilaterally. Extraocular movements intact bilaterally. Throat: No evidence of any erythema or exudates in the posterior pharynx. Has poor dentition. NECK: Supple with good range of motion. PULMONARY: Clear to auscultation bilaterally. No wheezing, no rales, no rhonchi, no crackles appreciated. CARDIOVASCULAR: Positive S1 and S2. No murmurs, rubs, or gallops appreciated. ABDOMEN: Soft, nondistended, nontender to palpation. Bowel sounds present. MUSCULOSKELETAL: Strength is 5/5 throughout. No evidence of any musculoskeletal deficit on examination. No weakness appreciated. NEUROLOGICAL: Cranial nerves II through XII are grossly intact. No evidence of any neurological deficits on exam. SKIN: Intact. Warm to touch. Good cap refill. PSYCHIATRIC: Normal affect and mood. EXTREMITIES: No edema. Good range of motion throughout. LAB FINDINGS: Showed white count of 4.8, hemoglobin 9.4, hematocrit is 26, platelets of 64,000. Chemistry: Sodium 132, potassium 4.5, chloride 96, bicarb is 23, anion gap 17, BUN 77, creatinine is 1.69, glucose . IMPRESSION: 1. Acute kidney injury secondary to hepatorenal syndrome type 2. Creatinine improved, 1.8. 2. Hyponatremia, current sodium is 132. 3. Anemia. 4. Hepatocellular carcinoma. 5. Coagulopathy secondary to cirrhosis. 6. Thrombocytopenia. 7. Esophageal varices secondary to cirrhosis. PLAN: At this time, sodium is 132, much improved with tolvaptan. At this time, patient is to continue with Bumex 1 mg p.o. b.i.d. on discharge. He can also go on Aldactone 25 mg daily. His creatinine is much improved. From a renal standpoint, he is going to be discharged. Otherwise, if here, will continue to follow. Job#: [id number]
[2017-11-05] MEDS ORDERED: MAGNESIUM HYDROXIDE 30 ML UDC PO PRN (12:30)
[2017-11-05] MEDS ORDERED: MINERAL OIL 132 ML BTL PR PRN (12:30)
[2017-11-05] MEDS ORDERED: LACTULOSE SYRUP 20 GM/30 ML UDC PO ONE (14:30)
[2017-11-06] VITALS (8 sets, daily range): BP systolic 110–135; BP diastolic 58–69
[2017-11-06] MEDS: ALBUTEROL/IPRATROPIUM 3 ML NEB NEB SCH ×5 (01:55→19:15)
[2017-11-06 06:09] LABS: ANION GAP 16.3 mmol/L (8-16); CALCIUM 8.8 mg/dL (8.4-10.2); CREATININE, SERUM 1.69 mg/dL (0.72-1.25); POTASSIUM 4.3 mmol/L (3.5-5.1)
[2017-11-06] MEDS: RIFAXIMIN 550 MG TABLET PO SCH ×2 (09:18→21:05)
[2017-11-06] MEDS: BUMETANIDE INJ 0.25MG/ML 4ML VIAL IV SCH (09:18)
[2017-11-06] MEDS: LACTULOSE SYRUP 20 GM/30 ML UDC PO SCH ×2 (09:18→17:33)
[2017-11-06] MEDS: MIDODRINE HCL 5 MG TABLET PO SCH ×3 (09:18→17:33)
--- NOTE | 2017-11-06 10:24 | Progress Note ---
DATE: November 06, 2017 NEPHROLOGY PROGRESS NOTE SUBJECTIVE: Patient is doing well with no complaints. Unsure why the patient is still here. Still having some constipation as well. OBJECTIVE VITALS: Temperature 97.5, pulse is 90, respiratory rate is 18, blood pressure is 111/69, pulse ox 99% on room air. GENERAL: Not in acute distress. Alert and oriented times 3. Cooperative on examination. HEENT: Head is normocephalic and atraumatic. Eyes: Pupils equal, round and reactive to light bilaterally. Extraocular movements intact bilaterally. NECK: Supple. Good range of motion. Throat with no evidence of any erythema or exudates in the posterior pharynx. Has poor dentition. PULMONARY: Clear to auscultation bilaterally. No wheezing. No rales. No rhonchi. No crackles appreciated. CARDIOVASCULAR: Positive S1 and S2. No murmurs, rubs or gallops appreciated. ABDOMEN: Soft, nondistended and nontender to palpation. Bowel sounds present. MUSCULOSKELETAL: Strength is 5/5 throughout. No evidence of any muscle deficit on examination. No weakness appreciated. NEUROLOGICAL: Cranial nerves II-XII are grossly intact. No evidence of any neurological deficits on exam. SKIN: Intact. Warm to touch. Good cap refill. PSYCHIATRIC: Normal affect and mood. EXTREMITIES: No edema. Good range of motion throughout. LAB FINDINGS: Show CBC none. Chemistry: Sodium 132, potassium 4.3, chloride 96, bicarb 24, anion gap of 16, BUN 23, creatinine 1.69, and glucose is 89. MICROBIOLOGY: None. IMPRESSION 1. Acute kidney injury secondary to hepatorenal syndrome, type 2, now creatinine is 1.69. 2. Hyponatremia with sodium of 132. 3. Anemia. 4. Hepatocellular carcinoma. 5. Coagulopathy secondary to cirrhosis. 6. Thrombocytopenia. 7. Esophageal varices secondary to cirrhosis. PLAN: At this time, sodium is much improved at 132. No further workup needed. Continue with Bumex 1 mg b.i.d., as well as Aldactone. From a renal standpoint, the patient has been cleared for discharge once cleared by the primary medicine team. Otherwise, the rest of the electrolytes are within normal range. Job#: [id number] [place]
[2017-11-06] MEDS ORDERED: CITRATE OF MAGNESIA 300ML BOTTLE PO ONE (12:15)
--- NOTE | 2017-11-06 12:18 | Progress Note ---
DATE: November 06, 2017 SUBJECTIVE: Patient feeling well today. Breathing comfortably. Still on volume restriction. PHYSICAL EXAMINATION VITALS: Blood pressure 110/70, pulse 80 and regular, respirations 16 and unlabored, pulse ox 97%. GENERAL: No acute distress. Alert and oriented times 3. NECK: Supple and nontender. No JVD. CARDIAC: Shows a regular rate and rhythm. Normal S1 and S2. LUNGS: Clear breath sounds. Slightly decreased on the right. ABDOMEN: Positive for fluid wave and ascites. Nontender. No masses. BACK: No CVA tenderness. No muscle spasm. EXTREMITIES: One plus edema to the knees bilaterally. REVIEW OF SYSTEMS: Negative for dyspnea. Negative for chest pain. Negative for neurologic changes. No fever. No GI distress or dysuria. LABORATORY: White count 4.8, hemoglobin 9.4, hematocrit 26.6, and platelet count 64,000. INR 1.67 with PT of 18.5. Sodium 132, potassium 4.3, BUN 23, creatinine 1.69. Chest x-ray from November 04, 2017, shows mild to moderate pleural effusion on the right. IMPRESSION: Recurrent pleural effusion. I discussed this with Dr. Gio Call and Dr. Callum Snider. Repeated thoracentesis may be the best way to handle this intractable pleural effusion. If this is not successful, a PleurX catheter could be considered. Will follow. Job#: [id number] ID
[2017-11-06] MEDS: SPIRONOLACTONE 25 MG TAB PO SCH (12:28)
[2017-11-06] MEDS: BUMETANIDE 1 MG TAB PO SCH (17:33)
[2017-11-07] VITALS: BP 90/55
[2017-11-07 04:00] VITALS: BP 118/71
[2017-11-07 05:49] LABS: BASOPHILS # (AUTO) 0.1 (0.0-0.1); EOSINOPHILS # (AUTO) 0.3 (0.0-0.4); EOSINOPHILS % 5.2 % (0.0-6.0); HEMATOCRIT 26.6 % (38.2-49.6); HEMOGLOBIN 9.4 g/dL (14.0-18.0); LYMPHOCYTES # (AUTO) 0.9 (1.0-3.2); LYMPHOCYTES % 18.1 % (18.0-39.1); MEAN CORPUSCULAR HGB CONC 35.3 g/dL (31-35); MEAN CORPUSCULAR VOLUME 87.8 fL (81-99); MONOCYTES # (AUTO) 0.9 (0.2-0.8); NEUTROPHILS % 58.5 % (38.7-80.0); PLATELET COUNT 61 x10e3/uL (140-360); RED BLOOD COUNT 3.03 x10e6/uL (4.3-5.7); RED CELL DISTRIBUTION WIDTH 19.7 % (11.7-14.4)
[2017-11-07 06:08] LABS: INR 1.93; PROTHROMBIN TIME 20.7 seconds (11.9-14.5)
[2017-11-07 06:09] LABS: PARTIAL THROMBOPLASTIN TIME 40.6 seconds (23.8-35.5)
[2017-11-07 06:24] LABS: ALBUMIN 3.1 g/dL (3.5-5.0); ANION GAP 14.8 mmol/L (8-16); BILIRUBIN,DIRECT 2.3 mg/dL (0.0-0.5); CALCIUM 8.7 mg/dL (8.4-10.2); CREATININE, SERUM 1.59 mg/dL (0.72-1.25); POTASSIUM 4.8 mmol/L (3.5-5.1)
[2017-11-07] MEDS: ALBUTEROL/IPRATROPIUM 3 ML NEB NEB SCH ×4 (07:00→19:20)
[2017-11-07 08:00] VITALS: BP 91/50
[2017-11-07] MEDS: RIFAXIMIN 550 MG TABLET PO SCH ×2 (09:00→21:00)
[2017-11-07] MEDS: MIDODRINE HCL 5 MG TABLET PO SCH ×3 (09:00→17:38)
[2017-11-07] MEDS: SPIRONOLACTONE 25 MG TAB PO SCH (09:00)
[2017-11-07] MEDS: BUMETANIDE 1 MG TAB PO SCH ×2 (09:00→17:38)
--- NOTE | 2017-11-07 10:18 | Progress Note ---
DATE: November 07, 2017 NEPHROLOGY PROGRESS NOTE SUBJECTIVE: Patient is doing well today with no other complaints. He is supposed to be discharged home later today. OBJECTIVE VITAL SIGNS: Temperature is 96.5, pulse 79, respiratory rate 20, blood pressure 91/50 earlier this morning, pulse ox 98% on room air. GENERAL: Not in acute distress. Alert and oriented times 3. Cooperative on examination. HEENT: Head is normocephalic and atraumatic. Eyes: Pupils equal, round and reactive to light bilaterally. Extraocular movements intact bilaterally. NECK: Supple. Good range of motion. Throat with no evidence of any erythema or exudates in the posterior pharynx. Has poor dentition. PULMONARY: Clear to auscultation bilaterally. No wheezing. No rales. No rhonchi. No crackles appreciated. CARDIOVASCULAR: Positive S1 and S2. No murmurs, rubs or gallops appreciated. ABDOMEN: Soft, nondistended and nontender to palpation. Bowel sounds present. MUSCULOSKELETAL: Strength is 5/5 throughout. No evidence of any muscle deficit on examination. No weakness appreciated. NEUROLOGICAL: Cranial nerves II-XII are grossly intact. No evidence of any neurological deficits on exam. SKIN: Intact. Warm to touch. Good cap refill. PSYCHIATRIC: Normal affect and mood. EXTREMITIES: No edema. Good range of motion throughout. LAB FINDINGS: Show sodium 132, potassium 4.8, chloride 95, bicarb 27, anion gap of 14, BUN is 24, creatinine is 1.59. White count is 5.1, hemoglobin 9.4, hematocrit 26, and platelets of 61,000. MICROBIOLOGY: None. IMAGING STUDIES: None. IMPRESSION 1. Acute kidney injury secondary to hepatorenal syndrome, type 2: Now, creatinine is 1.6. 2. Hyponatremia with sodium of 132. 3. Anemia. 4. Hepatocellular carcinoma. 5. Coagulopathy secondary to cirrhosis. 6. Thrombocytopenia. 7. Esophageal varices secondary to cirrhosis. PLAN: At this time, his sodium is 132. His creatinine is stable at baseline. Will discharge him on Bumex 1 mg p.o. b.i.d., as well as Aldactone. From a renal standpoint, he is good to go once primary team has cleared him. Will continue to follow. Job#: [id number] RI
[2017-11-07 11:58] VITALS: BP 111/53
--- NOTE | 2017-11-07 12:29 | Discharge Summary ---
PRIMARY CARE DOCTOR: Dr. Ann Marie Waldrop. FINAL DIAGNOSIS: Hepatic hydrothorax with recurrent right-sided pleural effusion. SECONDARY DIAGNOSIS 1. Acute renal failure, resolving. 2. Hyponatremia, resolving. 3. Cirrhosis with thrombocytopenia, coagulopathy and hepatorenal syndrome. 4. Hepatocellular carcinoma. CONSULTANTS 1. Dr. Call, director hedis. 2. Dr. Gregorio, collections specialist. 3. Dr. Bustamante, cardiothoracic surgeon. PROCEDURES/STUDIES PERFORMED: Thoracentesis x2. HISTORY: Per H\T\P. HOSPITAL COURSE: The patient was admitted. Thoracentesis was done on admission and on the day of discharge. Patient also again had acute renal failure and hyponatremia. With Nephrology's assistance they are getting better. His Lasix has been switched to Bumex, and his Aldactone dosage has been decreased and his midodrine dosage has been increased. Patient was evaluated by a cardiothoracic surgeon for possible chest tube placement. However, at this time we are still holding off on the idea. We will continue likely weekly thoracentesis as an outpatient. Patient was seen and examined today. It took 32 minutes total to discharge this patient. CONDITION ON DISCHARGE: Improved. DISCHARGE MEDICATIONS: Please see medication reconciliation form. TANG JOSHUA M.D. Job#: [id number] EV cc:ANN MARIE WALDROP MD
[2017-11-07] MEDS ORDERED: CITRATE OF MAGNESIA 300ML BOTTLE PO NR (12:30)
--- NOTE | 2017-11-07 12:57 | Diagnostic Imaging Report ---
Date and Time: 11/07/2017 Procedure: Right thoracentesis, ultrasound-guided roller leveler operator: Dr. Napier Pre-operative diagnosis: Hepatic hydrothorax Post-operative diagnosis: Hepatic hydrothorax Conscious Sedation: None The patient's heart rate and pulse oximetry were continuously monitored by the interventional radiology nurse. Blood pressure was monitored at 5 minute intervals. Additional Medications: Lidocaine 1% for local anesthesia Estimated blood loss: Minimal Specimens: 2200 cc laura-colored fluid Blood products administered: None Implants: None Condition at completion: Stable Disposition: Returned to floor DISCUSSION: Informed consent was obtained and documented in the medical record. The patient was placed in the sitting position and the right back was prepped and draped in the standard sterile fashion. A suitable percutaneous approach to the right pleural effusion was identified and 1% lidocaine was infiltrated into the skin and subcutaneous tissues for local anesthesia. Then under continuous sonographic guidance a 5 Yi readfyeh needle catheter was advanced into the right pleural space with aspiration of laura-colored fluid. The catheter was advanced off the needle and connected to vacuum bottle with subsequent evacuation of 2200 cc laura-colored fluid. The catheter was removed and a sterile, occlusive dressing was applied. The patient tolerated the procedure well without immediate consultation. Post procedure chest radiograph will be obtained. FINDINGS: Large right pleural effusion. IMPRESSION: Successful ultrasound-guided right thoracentesis with evacuation of 2200 cc laura-colored fluid. Signed by: Dr. Otoniel Napier M.D. on 11/07/2017 12:53 PM
--- NOTE | 2017-11-07 12:57 | Diagnostic Imaging Report ---
Date and Time: 11/07/2017 Procedure: Right thoracentesis, ultrasound-guided button breaker operator: Dr. Napier Pre-operative diagnosis: Hepatic hydrothorax Post-operative diagnosis: Hepatic hydrothorax Conscious Sedation: None The patient's heart rate and pulse oximetry were continuously monitored by the interventional radiology nurse. Blood pressure was monitored at 5 minute intervals. Additional Medications: Lidocaine 1% for local anesthesia Estimated blood loss: Minimal Specimens: 2200 cc laura-colored fluid Blood products administered: None Implants: None Condition at completion: Stable Disposition: Returned to floor DISCUSSION: Informed consent was obtained and documented in the medical record. The patient was placed in the sitting position and the right back was prepped and draped in the standard sterile fashion. A suitable percutaneous approach to the right pleural effusion was identified and 1% lidocaine was infiltrated into the skin and subcutaneous tissues for local anesthesia. Then under continuous sonographic guidance a 5 Turkmen SWIIM Systemeh needle catheter was advanced into the right pleural space with aspiration of laura-colored fluid. The catheter was advanced off the needle and connected to vacuum bottle with subsequent evacuation of 2200 cc laura-colored fluid. The catheter was removed and a sterile, occlusive dressing was applied. The patient tolerated the procedure well without immediate consultation. Post procedure chest radiograph will be obtained. FINDINGS: Large right pleural effusion. IMPRESSION: Successful ultrasound-guided right thoracentesis with evacuation of 2200 cc laura-colored fluid. Signed by: Dr. Otoniel Napier M.D. on 11/07/2017 12:53 PM
--- NOTE | 2017-11-07 13:30 | Diagnostic Imaging Report ---
Examination: Single AP view of the chest. COMPARISON: Prior chest radiographs, most recently 11/04/2017 INDICATION: Post thoracentesis DISCUSSION: See impression IMPRESSION: Interval right thoracentesis with near complete evacuation of right pleural effusion. No pneumothorax. Lungs otherwise clear. Stable cardiomediastinal contour. Signed by: Dr. Otoniel Napier M.D. on 11/07/2017 1:27 PM
[2017-11-07] MEDS: LACTULOSE SYRUP 20 GM/30 ML UDC PO SCH ×2 (13:54→17:38)
[2017-11-07] MEDS ORDERED: ALDACTONE25 MG PO (15:47)
[2017-11-07] MEDS ORDERED: MIDODRINE HCL2.5 MG PO (15:48)
[2017-11-07 16:11] VITALS: BP 113/65
--- NOTE | 2017-11-07 19:31 | Progress Note ---
PULMONARY/CRITICAL CARE PROGRESS NOTE SUBJECTIVE: Patient reports difficulty having a bowel movement. He had a thoracentesis with greater than 2 liters of fluid removed. His breathing has improved. OBJECTIVE VITAL SIGNS: Patient is afebrile. The saturation is 98% on room air, and the blood pressure is 111/53. HEENT: Examination shows no facial swelling or erythema. LYMPHATIC: Examination shows no submandibular, cervical or supraclavicular adenopathy. CARDIAC: Exam reveals a regular rate and rhythm with a normal S1 and S2. LUNGS: Auscultation reveals decreased breath sounds on the right side. ABDOMEN: Soft, but there is some ascites. EXTREMITIES: There is 1 to 2+ leg edema. IMPRESSION 1. Hepatic hydrothorax. 2. Cirrhosis. 3. Coagulopathy secondary to cirrhosis. 4. Thrombocytopenia and anemia. PLAN 1. Patient will be discharged home. 2. He will follow up in the office. 3. If he needs recurrent thoracentesis, we will make arrangements as an outpatient. GARTH ABEL MD Job#: [id number] EV
[2017-11-07 20:00] VITALS: BP 110/69
== END 2017-11-07 22:10 | disposition home or self-care (01) | DRG 186 ==
LOC: ER 17:40 → ERHOLD 19:54 → IMCU 23:03 → MED/SURG3 11-01 14:11
PROVIDERS: ADMIT Internal Medicine; ATTEND Internal Medicine
PROC: 0W993ZX Drainage of Right Pleural Cavity, Percutaneous Approach, Diagnostic (ICD-10-PCS; 2017-10-31)
PROC: 0W993ZX Drainage of Right Pleural Cavity, Percutaneous Approach, Diagnostic (ICD-10-PCS; principal; 2017-11-07)
DX: J94.8 Other specified pleural conditions (principal); K76.7 Hepatorenal syndrome; C22.0 Liver cell carcinoma; E87.1 Hypo-osmolality and hyponatremia; N17.9 Acute kidney failure, unspecified; D68.4 Acquired coagulation factor deficiency; I85.10 Secondary esophageal varices without bleeding; Z91.19 Patient's noncompliance with other medical treatment and regimen; I10 Essential (primary) hypertension; D69.59 Other secondary thrombocytopenia; E87.5 Hyperkalemia; K74.60 Unspecified cirrhosis of liver; E66.9 Obesity, unspecified; Z68.36 Body mass index [BMI] 36.0-36.9, adult; F10.21 Alcohol dependence, in remission
CPT/HCPCS: 32555; 36415; 71045; 74470; 80048; 80053; 80076; 82140; 82550; 82553; 83735; 83880; 84295; 84484; 85025; 85610; 85730; 94640; 94760; 99284; J1940; J2405; P9047

== ENCOUNTER 2017-11-21 04:20 | Inpatient (IN) | payer MEDICARE ==
[~2017-11-21] VITALS: Ht 172.7 cm; Wt 103.9 kg
[~2017-11-21 04:20] MED LIST changes: +ALDACTONE25 MG PO; +LASIX40 MG PO; +MAGNESIUM OTC PO; +VENTOLIN HFA18 GM INH
[2017-11-21] MEDS ORDERED: SPIRONOLACTONE25 MG PO (04:43)
[2017-11-21] MEDS ORDERED: BUMETANIDE1 MG PO (04:43)
[2017-11-21] MEDS ORDERED: GABAPENTIN300 MG PO (04:43)
[2017-11-21] MEDS ORDERED: MIDODRINE HCL10 MG PO (04:43)
[2017-11-21 04:46] LABS: BASOPHILS # (AUTO) 0.1 (0.0-0.1); BASOPHILS % 0.6 % (0.0-1.0); EOSINOPHILS # (AUTO) 0.5 (0.0-0.4); EOSINOPHILS % 2.8 % (0.0-6.0); HEMATOCRIT 28.6 % (38.2-49.6); LYMPHOCYTES % 11.9 % (18.0-39.1); MEAN CORPUSCULAR VOLUME 88.5 fL (81-99); MONOCYTES # (AUTO) 2.8 (0.2-0.8); MONOCYTES % 16.3 % (4.4-11.3); NEUTROPHILS # (AUTO) 11.6 (2.1-6.9); PLATELET COUNT 122 x10e3/uL (140-360); RED BLOOD COUNT 3.23 x10e6/uL (4.3-5.7); RED CELL DISTRIBUTION WIDTH 19.7 % (11.7-14.4)
[2017-11-21 04:52] LABS: INR 1.77; PARTIAL THROMBOPLASTIN TIME 41.9 seconds (23.8-35.5)
[2017-11-21 05:59] LABS: ANION GAP 19.7 mmol/L (8-16); BLOOD UREA NITROGEN 48 mg/dL (8-26); BUN/CREATININE RATIO 20 (6-25); CARBON DIOXIDE 22 mmol/L (22-32); CHLORIDE 90 mmol/L (101-111); CREATININE, SERUM 2.4 mg/dL (0.9-1.3); EST GLOMERULAR FILTRATION RATE 27 ML/MIN (60-); GLUCOSE 140 mg/dL (74-118); POTASSIUM 4.7 mmol/L (3.6-5.1); SODIUM 127 mmol/L (136-144)
[2017-11-21] MEDS ORDERED: CEFTRIAXONE SOD 1 GM VIAL IV SCH (06:00)
[2017-11-21] MEDS ORDERED: FUROSEMIDE INJ 10 MG/ML 4 ML VIAL ONE (06:06)
[2017-11-21] MEDS ORDERED: ONDANSETRON HCL INJ 2 MG/ML VIAL IV PRN (06:15)
[2017-11-21] MEDS ORDERED: FUROSEMIDE INJ 10 MG/ML 4 ML VIAL IV ONE (06:15)
--- NOTE | 2017-11-21 06:27 | Diagnostic Imaging Report ---
EXAM: CHEST SINGLE (PORTABLE), AP 1 view INDICATION: Shortness of breath COMPARISON: AP view of the chest November 07, 2017 FINDINGS: LINES/TUBES: None LUNGS: Only a small portion of the right upper lung is aerated. PLEURA: Interval development of large right pleural effusion. HEART AND MEDIASTINUM: Normal size and contour. BONES AND SOFT TISSUES: No acute findings. IMPRESSION: Interval development of large right pleural effusion with small residual right upper lung aeration. Signed by: Dr. Lucretia Bojorquez M.D. on 11/21/2017 6:22 AM
--- NOTE | 2017-11-21 08:37 | Diagnostic Imaging Report ---
PROCEDURE: ULTRASOUND GUIDED THORACENTESIS COMPARISON: Multiple prior thoracentesis procedures. INDICATIONS:pleural effusion FINDINGS: After informed consent was obtained, the patient was placed in the sitting position and preliminary ultrasound of the posterior chest identified a safe route into the right pleural effusion. The overlying skin was prepped and draped in usual sterile fashion. Lidocaine 1% was used for local anesthesia. Under ultrasound guidance, a 5 Bulgarian Yueh needle was advanced into the pleural fluid, the catheter was advanced off the needle, and 2400 cc bloody fluid were aspirated. The patient tolerated the procedure well and there were no immediate post-procedural complications. A post-thoracentesis chest radiograph will be obtained. CONCLUSION: Uncomplicated ultrasound-guided right thoracentesis with removal of 2400 cc bloody fluid. Specimen was submitted for laboratory analysis as requested by the referring clinical team. Dictated by: Otoniel Napier M.D. on 11/21/2017 at 8:45 Electronically approved by: Otoniel Napier M.D. on 11/21/2017 at 8:45
--- NOTE | 2017-11-21 08:38 | Diagnostic Imaging Report ---
PROCEDURE: CHEST XRAY POST PROCEDURE COMPARISON: Earlier 2017. INDICATIONS: POST THORACENTESIS FINDINGS: Post thoracentesis chest radiograph shows interval evacuation of the majority of the right pleural effusion. Small effusion persists. No pneumothorax. Left lung remains clear. Stable cardiomediastinal contour. No acute osseous abnormality. CONCLUSION: Status post right thoracentesis with small residual pleural effusion. No pneumothorax. Dictated by: Otoniel Napier M.D. on 11/21/2017 at 8:46 Electronically approved by: Otoniel Napier M.D. on 11/21/2017 at 8:46
[2017-11-21 09:49] LABS: ALANINE AMINOTRANSFERASE 50 IU/L (0-55); ALBUMIN 4.3 g/dL (3.5-5.0); ALKALINE PHOSPHATASE 138 IU/L (40-150); CALCIUM 8.7 mg/dL (8.4-10.2); CREATINE KINASE 63 IU/L (30-200); MAGNESIUM 2.4 MG/DL (1.3-2.1)
[2017-11-21 10:28] LABS: BILIRUBIN,URINE NEGATIVE (NEGATIVE); CLARITY,URINE SL CLOUDY (CLEAR); COLOR,URINE YELLOW (YELLOW); KETONES,URINE NEGATIVE (NEGATIVE); LEUKOCYTE ESTERASE ,URINE NEGATIVE (NEGATIVE); NITRITE,URINE NEGATIVE (NEGATIVE); PROTEIN,URINE DIPSTICK 1+ (NEGATIVE); URINE UROBILINOGEN 0.2 mg/dL (0.2 - 1)
[2017-11-21 11:00] LABS: BACTERIA,URINE RARE /HPF; EPITHELIAL CELLS,URINE FEW /LPF; TRANSITIONAL EPI CELLS,URINE RARE
[2017-11-21 11:02] LABS: AMORPHOUS SEDIMENT,URINE RARE (FEW)
[2017-11-21 13:20] LABS: EOSINOPHILS % (MANUAL) 2 % (0-7); LYMPHOCYTES % (MANUAL) 8 % (19-48); MONOCYTES % (MANUAL) 12 % (3.4-9.0); NEUTROPHILS % (MANUAL) 76 % (40-74); PLATELET ESTIMATE SLIGHTLY DECREASED; PLATELET MORPHOLOGY COMMENT FEW LARGE
[2017-11-21 13:21] LABS: ANISOCYTOSIS SLIGHT; RBC MORPHOLOGY COMMENT ABNORMAL
[2017-11-21 13:29] VITALS: BP 113/66
[2017-11-21 13:40] VITALS: BP 113/66
[2017-11-21] MEDS ORDERED: ALBUMIN 25% 25GM 0.25 GM/ML BTL IV ONE (15:00)
[2017-11-21] MEDS: RIFAXIMIN 550 MG TABLET PO SCH (15:48)
[2017-11-21] MEDS: SPIRONOLACTONE 25 MG TAB PO SCH (15:55)
--- NOTE | 2017-11-21 15:55 | Consultation ---
DATE OF CONSULTATION: November 21, 2017 PULMONARY/CRITICAL CARE CONSULTATION REFERRING PHYSICIAN: Dr. Snider CHIEF COMPLAINT: Worsening dyspnea and pleural effusion. HISTORY OF PRESENT ILLNESS: The patient is a 67-year-old man with a history of cirrhosis and liver cancer. He also has recurrent hepatic hydrothorax. He has required multiple thoracenteses and paracenteses. He has opted against any type of PleurX catheter or intra-abdominal catheter. The patient went to [facility] earlier this week and had a paracentesis done. He now complains of recurrent dyspnea. Subsequent evaluation showed recurrent right large pleural effusion. PAST MEDICAL HISTORY 1. Cirrhosis. 2. Coagulopathy. 3. Hepatic hydrothorax. SURGICAL HISTORY 1. Multiple thoracenteses. 2. Multiple paracenteses. SOCIAL HISTORY: The patient is not a smoker or drinker. He has good family support. ALLERGIES: THERE ARE NO KNOWN DRUG ALLERGIES. FAMILY HISTORY: Noncontributory. REVIEW OF SYSTEMS: There is no fever. There is no headache or neck pain. He is not having any chest pain. He does not have any cough. He does have some dyspnea. He is having no nausea or vomiting. He does have some abdominal distention. He also complains of some leg swelling. PHYSICAL EXAMINATION VITAL SIGNS: Stable. HEENT: No facial swelling or erythema. The nasal mucosa is normal. The oropharynx is normal. LYMPHATIC: No submandibular, cervical or supraclavicular adenopathy. CARDIAC: Regular rate and rhythm with normal S1 and S2. LUNGS: Auscultation of the lungs reveals decreased breath sounds on the right side. ABDOMEN: Soft. There is ascites. There is 2 to 3+ leg edema. NEUROLOGIC: There are no focal neurological abnormalities. IMPRESSION 1. Hepatic hydrothorax and recurrent pleural effusion. 2. Cirrhosis. 3. Hepatorenal syndrome, type 1. 4. Hyponatremia. PLAN 1. The patient will have a thoracentesis today. 2. He will need an albumin infusion afterwards to help prevent worsening hepatorenal syndrome. 3. Consider thoracentesis tomorrow. 4. Fluid restriction for hyponatremia. 5. Continue lactulose, and spironolactone. 6. Overall prognosis is poor. Job#: [id number]
[2017-11-21 17:30] VITALS: BP 114/62
[2017-11-21 18:30] VITALS: BP 110/68
[2017-11-21] MEDS: GABAPENTIN 300 MG CAP PO SCH (18:36)
[2017-11-21] MEDS: MIDODRINE HCL 5 MG TABLET PO SCH (18:43)
[2017-11-21] MEDS: LACTULOSE SYRUP 20 GM/30 ML UDC PO SCH (18:43)
[2017-11-21 19:05] VITALS: BP 110/68
[2017-11-21 19:42] VITALS: BP 110/81
[2017-11-22] VITALS (13 sets, daily range): BP systolic 101–124; BP diastolic 65–81
[2017-11-22] MEDS: RIFAXIMIN 550 MG TABLET PO SCH ×2 (02:00→13:17)
[2017-11-22 05:09] LABS: BASOPHILS % 0.5 % (0.0-1.0); EOSINOPHILS # (AUTO) 0.2 (0.0-0.4); EOSINOPHILS % 3.1 % (0.0-6.0); HEMATOCRIT 22.4 % (38.2-49.6); HEMOGLOBIN 7.9 g/dL (14.0-18.0); LYMPHOCYTES # (AUTO) 0.9 (1.0-3.2); LYMPHOCYTES % 11.9 % (18.0-39.1); MEAN CORPUSCULAR HEMOGLOBIN 31.1 pg (28-32); MEAN CORPUSCULAR HGB CONC 35.3 g/dL (31-35); MEAN CORPUSCULAR VOLUME 88.2 fL (81-99); MONOCYTES # (AUTO) 1.2 (0.2-0.8); MONOCYTES % 15.2 % (4.4-11.3); NEUTROPHILS # (AUTO) 5.3 (2.1-6.9); NEUTROPHILS % 68.8 % (38.7-80.0); PLATELET COUNT 89 x10e3/uL (140-360); RED BLOOD COUNT 2.54 x10e6/uL (4.3-5.7); RED CELL DISTRIBUTION WIDTH 20.1 % (11.7-14.4)
[2017-11-22 05:24] LABS: INR 1.92; PROTHROMBIN TIME 23.5 seconds (11.9-14.5)
[2017-11-22 05:25] LABS: PARTIAL THROMBOPLASTIN TIME 43.1 seconds (23.8-35.5)
[2017-11-22 05:31] LABS: ALBUMIN 3.8 g/dL (3.5-5.0); ALBUMIN/GLOBULIN RATIO 2.4 (0.8-2.0); ANION GAP 16.7 mmol/L (8-16); CALCIUM 8.3 mg/dL (8.4-10.2); CREATININE, SERUM 2.13 mg/dL (0.72-1.25); POTASSIUM 4.7 mmol/L (3.5-5.1)
[2017-11-22] MEDS: LACTULOSE SYRUP 20 GM/30 ML UDC PO SCH ×2 (08:14→16:50)
[2017-11-22] MEDS: MIDODRINE HCL 5 MG TABLET PO SCH ×2 (08:20→17:02)
[2017-11-22] MEDS: SPIRONOLACTONE 25 MG TAB PO SCH (09:00)
[2017-11-22] MEDS: GABAPENTIN 300 MG CAP PO SCH ×2 (09:00→16:50)
[2017-11-22] MEDS ORDERED: CEFTRIAXONE SOD 1 GM VIAL IV SCH (09:00)
[2017-11-22] MEDS ORDERED: FUROSEMIDE INJ 10 MG/ML 4 ML VIAL IV SCH ×2 (09:45→18:00)
[2017-11-22] MEDS ORDERED: SODIUM CHLORIDE 1 GM TAB PO ONE (10:00)
--- NOTE | 2017-11-22 10:14 | Consultation ---
DATE OF CONSULTATION: November 22, 2017 NEPHROLOGY CONSULTATION REASON FOR CONSULTATION: Acute kidney injury, hepatorenal syndrome and hyponatremia. HPI: This is a 67-year-old male with known liver cirrhosis due to hepatocellular carcinoma requiring multiple thoracentesis and paracentesis, now presents to the ED with worsening shortness of breath and pleural effusion. The patient has been evaluated by me on several occasions during multiple hospital visits. The patient has chronic hyponatremia, acute kidney injury and significant anasarca. Family refuses Hospice care. The patient was seen and evaluated at bedside on the medical floor. Currently, doing well with no other complaints at this time. REVIEW OF SYSTEMS: Pertinent positives are anasarca, shortness of breath. Pertinent negatives: Denies any chest pain, palpitations, nausea, vomiting, diarrhea, dysuria, hematuria, frequency, urgency, lightheadedness, dizziness, abdominal pain, headache, cough, congestion, fever, or any other complaints. The rest of the 14-point review of systems have been reviewed with the patient and are negative. ALLERGIES: NO KNOWN DRUG ALLERGIES. HOME MEDICATIONS: He takes: 1. Bumex 1 mg b.i.d. 2. Gabapentin 300 mg b.i.d. 3. Midodrine 10 mg b.i.d. 4. Rifaximin 550 mg p.o. b.i.d. 5. Aldactone 25 mg daily. PAST MEDICAL HISTORY: He has liver cirrhosis from hepatocellular carcinoma, coagulopathy, hepatic hydrothorax, multiple paracentesis, multiple thoracentesis, medical noncompliance. SURGICAL HISTORY: Thoracentesis, paracentesis. FAMILY HISTORY: Hypertension and diabetes. SOCIAL HISTORY: No drugs. No smoking. No alcohol. Good social support. PHYSICAL EXAMINATION VITAL SIGNS: Temperature is 97.5, pulse 82, respiratory rate is 20, blood pressure 105/65, and his pulse ox is 98%. He is on 3 L nasal cannula. GENERAL: Not in acute distress. Alert and oriented times 3. Cooperative on examination. HEENT: Head is normocephalic and atraumatic. Eyes: Pupils equal, round and reactive to light bilaterally. Extraocular movements intact bilaterally. NECK: Supple. Good range of motion. Throat with no evidence of any erythema or exudates in the posterior pharynx. Has poor dentition. PULMONARY: Has decreased breath sounds bilaterally. Has expiratory wheezing. Has some rales. Positive crackles. CARDIOVASCULAR: Positive S1 and S2. No murmurs, rubs or gallops appreciated. ABDOMEN: Distended and nontender to palpation. Bowel sounds present. MUSCULOSKELETAL: Strength is 5/5 throughout. No evidence of any muscle deficit on examination. No weakness appreciated. NEUROLOGICAL: Cranial nerves II-XII are grossly intact. No evidence of any neurological deficits on exam. SKIN: Intact. Warm to touch. Good cap refill. PSYCHIATRIC: Normal affect and mood. EXTREMITIES: No edema. Good range of motion throughout. LAB FINDINGS: Show a white count of 7.7, hemoglobin 7.9, hematocrit 22.4, and platelets of 89,000. Coagulation: PT 23.5, INR 1.9 and PTT 43. Chemistry: Sodium 126, potassium 4.7, chloride 94, bicarb 20, anion gap of 16, BUN 44, creatinine 2.1. Calcium is 8.3. His total bilirubin is 6.7, total protein 5.4. Urinalysis was found to be negative. MICROBIOLOGY: Blood and urine cultures are still pending, but no growth to date. IMAGING STUDIES: Chest x-ray shows interval development of a large pleural effusion with right residual right upper lung aeration. IMPRESSION 1. Acute kidney injury secondary to hepatorenal syndrome, type 2. 2. Anemia of chronic kidney disease. 3. Metabolic acidosis. 4. Hyponatremia. PLAN: At this time, he is scheduled to have a paracentesis later today. We are going to give him 2 g of p.o. salt tabs. Continue with IV diuretics. Continue with Aldactone as well. Put him on some sodium bicarbonate tabs at 1300 mg p.o. b.i.d. We are going to repeat labs in the morning and monitor his sodium level. His creatinine is roughly around 1.5 to 1.8, which is not too far from his baseline. Will continue to follow. Thank you so much for this consultation. Will continue to follow with you. Job#: [id number] RAJ
[2017-11-22] MEDS: PANTOPRAZOLE SOD 40 MG TABEC PO SCH (13:17)
--- NOTE | 2017-11-22 14:06 | Diagnostic Imaging Report ---
Date and Time: 11/22/2017 Procedure: Ultrasound-guided paracentesis Pre-operative diagnosis: Ascites Post-operative diagnosis: Ascites Conscious Sedation: None Additional Medications: Lidocaine 1% for local anesthesia Estimated blood loss: Minimal Specimens: 3,300 cc laura-colored fluid Blood products administered: None Implants: None Condition at completion: Stable DISCUSSION: Informed consent was obtained and documented in the medical record. The patient was prepped and draped in the standard sterile fashion. A suitable percutaneous approach to the abdominal fluid was identified and 1% lidocaine was infiltrated into the skin and subcutaneous tissues for local anesthesia. Then under continuous sonographic guidance a 5 Sami Centeze needle catheter was advanced into the right lateral mid abdomen with aspiration of laura-colored fluid. The catheter was advanced off the needle and connected to vacuum bottle with subsequent evacuation of 3,300 cc laura-colored fluid. The catheter was removed and a sterile, occlusive dressing was applied. The patient tolerated the procedure well without immediate consultation. IMPRESSION: Successful ultrasound-guided paracentesis with evacuation of 3,300 cc laura-colored fluid. Signed by: Dr. Brayan Paul DO on 11/22/2017 2:03 PM
[2017-11-22] MEDS ORDERED: ALBUMIN 25% 25GM 0.25 GM/ML BTL IV SCH (15:28)
--- NOTE | 2017-11-22 15:44 | Progress Note ---
DATE: 11/22/2017 SUBJECTIVE: The patient had a paracentesis today with 3300 mL removed. He notes improvement in his abdominal distention and in his dyspnea. OBJECTIVE: VITAL SIGNS: Patient is afebrile. The vital signs are stable. HEENT: Examination shows no facial swelling or erythema. The nasal mucosa is normal. The oropharynx is normal. LYMPHATIC: Examination shows no submandibular, cervical or supraclavicular adenopathy. CARDIOVASCULAR: Exam reveals a regular rate and rhythm with a normal S1 and S2. There are no murmurs or rubs. LUNGS: Auscultation reveals decreased breath sounds in the right side. EXTREMITIES: There is some leg edema. IMPRESSION: 1. Cirrhosis with ascites and coagulopathy. 2. Hepatic hydrothorax. 3. Hepatorenal syndrome type 1. 4. Anemia with a decrease in blood count from 10 to 7.9. 5. Thrombocytopenia. PLAN: 1. Patient should have albumin to help protect against hepatorenal syndrome. 1. Continue spironolactone. 2. Continue lactulose and midranone 3. GI to evaluate patient for decreased blood counts. Job#: [id number] EV MTDD
[2017-11-22] MEDS: SODIUM BICARBONATE 650 MG TAB PO SCH (16:50)
[2017-11-22] MEDS: ALBUMIN 25% 25GM 0.25 GM/ML BTL IV SCH ×2 (17:23→23:39)
[2017-11-22] MEDS ORDERED: ALBUMIN 25% 25GM 0.25 GM/ML BTL IV ONE (18:00)
--- NOTE | 2017-11-22 20:58 | Consultation ---
DATE OF CONSULTATION: November 22, 2017 HISTORY OF PRESENT ILLNESS: This is a 67-year-old with past history of cirrhosis, past history of alcohol abuse and also history of hepatocellular carcinoma, received treatment from [facility]. Apparently has been recommended to have hospice from [facility], presented to the hospital because of increasing problems with shortness of breath and abdominal distension. The patient had paracentesis and thoracentesis. He is currently doing better. His labs showed that he has anemia. Hemoglobin dropped to 7.9, but there is no sense of active bleeding. MEDICAL PROBLEMS: Significant for history of hypertension, history of alcoholic cirrhosis, history of hepatocellular carcinoma as mentioned before. ALLERGIES: NONE. SOCIAL HISTORY: Past history of alcohol use. FAMILY HISTORY: Noncontributory. REVIEW OF SYSTEMS: Denies any chest pain at this point. Denies any nausea or vomiting. Denies any hematemesis or any black tarry stools. PHYSICAL EXAMINATION GENERAL: The patient is awake, lying in bed, appears to be stable. VITAL SIGNS: Afebrile currently. HEAD, EYES, EARS, NOSE AND THROAT: Normocephalic and atraumatic. Sclerae mildly anicteric. NECK: Supple. HEART: Regular. LUNGS: Clear. ABDOMEN: Soft. There is distention with ascites. It is nontender. EXTREMITIES: No clubbing or cyanosis. LAB VALUES: BUN of 44, creatinine of 2.13. Hemoglobin is 7.9, WBC of 7.7. PT is 23.5. IMPRESSION 1. Cirrhosis with ascites and the patient has history of hepatocellular carcinoma. 2. Elevated liver function test. 3. Anemia. No active sign of bleeding. RECOMMENDATIONS: Continue on a supportive care at this point. Follow labs. Recommend hospice care and DNR. Job#: [id number] GE cc:Breana ELAINE MD
[2017-11-23] VITALS (8 sets, daily range): BP systolic 111–128; BP diastolic 55–82
[2017-11-23] MEDS: RIFAXIMIN 550 MG TABLET PO SCH ×2 (02:08→14:00)
[2017-11-23 05:05] LABS: BASOPHILS % 0.4 % (0.0-1.0); EOSINOPHILS # (AUTO) 0.3 (0.0-0.4); EOSINOPHILS % 2.9 % (0.0-6.0); HEMATOCRIT 21.5 % (38.2-49.6); LYMPHOCYTES # (AUTO) 1.3 (1.0-3.2); LYMPHOCYTES % 14.3 % (18.0-39.1); MEAN CORPUSCULAR HEMOGLOBIN 31.8 pg (28-32); MEAN CORPUSCULAR HGB CONC 35.8 g/dL (31-35); MEAN CORPUSCULAR VOLUME 88.8 fL (81-99); MONOCYTES # (AUTO) 1.4 (0.2-0.8); MONOCYTES % 14.7 % (4.4-11.3); NEUTROPHILS # (AUTO) 6.3 (2.1-6.9); NEUTROPHILS % 67.2 % (38.7-80.0); RED BLOOD COUNT 2.42 x10e6/uL (4.3-5.7); RED CELL DISTRIBUTION WIDTH 20.5 % (11.7-14.4)
[2017-11-23 05:06] LABS: HEMOGLOBIN 7.7 g/dL (14.0-18.0); PLATELET COUNT 93 x10e3/uL (140-360)
[2017-11-23 05:20] LABS: ANION GAP 16.7 mmol/L (8-16); CALCIUM 8.3 mg/dL (8.4-10.2); CREATININE, SERUM 1.75 mg/dL (0.72-1.25); POTASSIUM 4.7 mmol/L (3.5-5.1)
[2017-11-23] MEDS: ALBUMIN 25% 25GM 0.25 GM/ML BTL IV SCH ×3 (05:49→17:52)
[2017-11-23] MEDS: PANTOPRAZOLE SOD 40 MG TABEC PO SCH (07:30)
[2017-11-23] MEDS: MIDODRINE HCL 5 MG TABLET PO SCH ×2 (09:00→17:00)
[2017-11-23] MEDS: SPIRONOLACTONE 25 MG TAB PO SCH (09:00)
[2017-11-23] MEDS: GABAPENTIN 300 MG CAP PO SCH ×2 (09:00→17:00)
[2017-11-23] MEDS: SODIUM BICARBONATE 650 MG TAB PO SCH ×2 (09:00→17:00)
[2017-11-23] MEDS: LACTULOSE SYRUP 20 GM/30 ML UDC PO SCH ×2 (09:00→17:00)
[2017-11-23] MEDS: FUROSEMIDE INJ 10 MG/ML 4 ML VIAL IV SCH ×3 (10:00→22:08)
[2017-11-23] MEDS ORDERED: SODIUM CHLORIDE 1 GM TAB PO NR (10:00)
--- NOTE | 2017-11-23 10:33 | Progress Note ---
DATE: November 23, 2017 NEPHROLOGY PROGRESS NOTE SUBJECTIVE: The patient is complaining of shortness of breath overnight. He did have some wheezing on exam. The patient was on albumin, which we will go ahead and start him on Lasix to get some diuresing going. He had approximately 3 liters of paracentesis and 2 liters thoracentesis yesterday. OBJECTIVE VITALS: Temperature is 97.5, pulse 89, respiratory rate 20, blood pressure 120/57. He is 100% on nasal cannula at 4 liters. LAB FINDINGS: White count 9.3, hemoglobin 7.7, hematocrit 21, platelets 93. Coagulation: PT 23.5, INR 1.9, PTT 43.1. Chemistries: Sodium 126, potassium 4.7, chloride 94, bicarb 20, anion gap 16, BUN 46, creatinine 1.7, glucose 111, calcium 8.3, albumin 3.8. Urinalysis was negative. MICROBIOLOGY: Blood cultures are negative. Urine culture is negative. IMAGING STUDIES: None. PHYSICAL EXAMINATION GENERAL: Not in acute distress. Alert and oriented times 3. Cooperative on examination. HEENT: Head is normocephalic and atraumatic. Eyes: Pupils are equal, round and reactive to light bilaterally. Extraocular movements intact bilaterally. NECK: Supple. Good range of motion. Throat with no evidence of any erythema or exudates in the posterior pharynx, has poor dentition. RESPIRATORY: Positive rales. Positive expiratory wheezing. CARDIOVASCULAR: Positive S1 and S2. No murmurs, rubs or gallops appreciated. ABDOMEN: Soft, nondistended and nontender to palpation. Bowel sounds present. MUSCULOSKELETAL: Strength is 5/5 throughout. No evidence of any muscle deficit on examination. No weakness appreciated. NEUROLOGICAL: Cranial nerves II through XII are grossly intact. No evidence of any neurological deficits on exam. SKIN: Intact. Warm to touch. Good cap refill. PSYCHIATRIC: Normal affect and mood. EXTREMITIES: He has 2+ pedal edema. IMPRESSION 1. Acute kidney injury secondary to underlying hepatorenal syndrome, type 2. 2. Anemia of chronic kidney disease. 3. Metabolic acidosis. 4. Hyponatremia secondary to hepatorenal syndrome, type 2. 5. Chronic hypotension. PLAN: At this time, the patient was complaining of shortness of breath. Will add Lasix 40 mg IV q.6 h. for help with diuresis. Get a chest x-ray in the morning. Get a.m. labs. Give him sodium chloride tabs 2 grams p.o. times 1. Continue with Aldactone as well. He is also on sodium bicarbonate tabs, which we will continue at this time. His creatinine did downtrend to 1.7 today. His creatinine is roughly between 1.5 to 1.8, so he is currently roughly at his baseline. Otherwise, we will continue to monitor very closely. Job#: [id number]
[2017-11-23] MEDS: ALBUTEROL/IPRATROPIUM 3 ML NEB NEB PRN ×2 (15:04→19:20)
--- NOTE | 2017-11-23 19:26 | Diagnostic Imaging Report ---
Examination: Single AP view of the chest. COMPARISON: AP chest 11/21/2017 INDICATION: Ascites, cirrhosis, pleural effusion IMPRESSION: 1. Lines and Tubes: None 2. Slight decrease in size of large right pleural effusion and associated atelectasis of the right lung. Minimal atelectatic changes in the left lower lung/retrocardiac region. 3. Cardiomediastinal silhouette is normal. Pulmonary vasculature is normal. 4. No acute bony abnormalities. Signed by: Dr. Sal Brooks M.D. on 11/23/2017 7:23 PM
--- NOTE | 2017-11-23 21:00 | Progress Note ---
DATE: SUBJECTIVE: The patient had a paracentesis yesterday with 3300 mL removed, but reports increased abdominal swelling and congestion today. Repeat x-ray was done, but is still pending. PHYSICAL EXAMINATION VITALS: Patient is afebrile. The vital signs are stable. HEENT: Shows no facial swelling or erythema. CARDIAC: Regular rate and rhythm with normal S1 and S2. There are no murmurs or rubs. LUNGS: Auscultation shows decreased breath sounds on the right side. ABDOMEN: Distended. There is ascites. There is 1 to 2+ leg edema. IMPRESSION 1. Cirrhosis with end-stage liver disease. 2. Coagulopathy. 3. Recurrent ascites. 4. Recurrent right pleural effusion from cirrhosis. PLAN 1. The patient should have a Pleura-Dex catheter placed, so fluid can be removed at home. 2. Consider an intra-abdominal catheter for the ascites as well. 3. Continue spironolactone and milrinone. 4. Continue lactulose. Job#: [id number] CHAD
[2017-11-24] VITALS (12 sets, daily range): BP systolic 98–142; BP diastolic 51–74
[2017-11-24] MEDS: RIFAXIMIN 550 MG TABLET PO SCH ×2 (02:13→14:00)
[2017-11-24] MEDS: ALBUTEROL/IPRATROPIUM 3 ML NEB NEB PRN (02:24)
[2017-11-24] MEDS: FUROSEMIDE INJ 10 MG/ML 4 ML VIAL IV SCH ×3 (04:30→17:48)
[2017-11-24 05:01] LABS: BASOPHILS # (AUTO) 0.1 (0.0-0.1); BASOPHILS % 0.4 % (0.0-1.0); EOSINOPHILS # (AUTO) 0.2 (0.0-0.4); EOSINOPHILS % 1.5 % (0.0-6.0); HEMATOCRIT 21.7 % (38.2-49.6); HEMOGLOBIN 7.7 g/dL (14.0-18.0); LYMPHOCYTES # (AUTO) 1.5 (1.0-3.2); LYMPHOCYTES % 10.5 % (18.0-39.1); MEAN CORPUSCULAR HEMOGLOBIN 31.8 pg (28-32); MEAN CORPUSCULAR HGB CONC 35.5 g/dL (31-35); MEAN CORPUSCULAR VOLUME 89.7 fL (81-99); MONOCYTES % 14.3 % (4.4-11.3); NEUTROPHILS # (AUTO) 10.4 (2.1-6.9); NEUTROPHILS % 72.7 % (38.7-80.0); PLATELET COUNT 112 x10e3/uL (140-360); RED BLOOD COUNT 2.42 x10e6/uL (4.3-5.7); RED CELL DISTRIBUTION WIDTH 20.9 % (11.7-14.4)
[2017-11-24 05:27] LABS: ANION GAP 22.8 mmol/L (8-16); CREATININE, SERUM 2.06 mg/dL (0.72-1.25); POTASSIUM 4.8 mmol/L (3.5-5.1)
--- NOTE | 2017-11-24 06:39 | Diagnostic Imaging Report ---
EXAM: CHEST SINGLE (PORTABLE), AP 1 view INDICATION: Shortness of breath COMPARISON: AP view of the chest November 23, 2017 FINDINGS: LINES/TUBES: None LUNGS: Decreased aeration of the right lung compared to yesterday's exam secondary to enlarging right pleural effusion. PLEURA: Interval increase in large right pleural effusion. HEART AND MEDIASTINUM: Stable appearance, partially obscured. BONES AND SOFT TISSUES: No acute findings. IMPRESSION: Large right pleural effusion, increased from prior exam. Signed by: Dr. Lucretia Bojorquez M.D. on 11/24/2017 6:36 AM
[2017-11-24] MEDS: PANTOPRAZOLE SOD 40 MG TABEC PO SCH (07:30)
[2017-11-24] MEDS: SPIRONOLACTONE 25 MG TAB PO SCH (08:44)
[2017-11-24] MEDS: SODIUM BICARBONATE 650 MG TAB PO SCH ×2 (08:45→17:00)
[2017-11-24] MEDS: GABAPENTIN 300 MG CAP PO SCH ×2 (08:45→17:00)
[2017-11-24] MEDS: MIDODRINE HCL 5 MG TABLET PO SCH ×2 (08:45→17:00)
[2017-11-24] MEDS: LACTULOSE SYRUP 20 GM/30 ML UDC PO SCH ×2 (08:45→17:00)
[2017-11-24] MEDS: ALBUMIN 25% 25GM 100 ML IV SCH ×3 (11:00→23:18)
[2017-11-24] MEDS ORDERED: ALBUMIN 25% 25GM 0.25 GM/ML BTL IV SCH (12:00)
[2017-11-24 12:31] LABS: LYMPHOCYTES % (MANUAL) 14 % (19-48); MONOCYTES % (MANUAL) 5 % (3.4-9.0); NEUTROPHILS % (MANUAL) 81 % (40-74)
[2017-11-24 12:32] LABS: ANISOCYTOSIS SLIGHT; HOWELL-JOLLY BODIES FEW; HYPOCHROMASIA MODERATE; PLATELET ESTIMATE SLIGHTLY DECREASED; PLATELET MORPHOLOGY COMMENT NORMAL; RBC MORPHOLOGY COMMENT NORMAL
--- NOTE | 2017-11-24 15:39 | Diagnostic Imaging Report ---
Procedure: Ultrasound-guided right therapeutic thoracentesis mash processing operator: Karla Boston MD Pre-operative diagnosis: Right pleural effusion Post-operative diagnosis: Right pleural effusion Sedation: Local (1% subcutaneous lidocaine) Estimated blood loss: Minimal Implants: None TECHNIQUE/FINDINGS: Informed consent was obtained from the patient and documented in the medical record. The patient was placed in the upright position. The right posterior chest was prepped and draped in standard sterile fashion. 1% lidocaine was infiltrated into the skin and subcutaneous tissues for local anesthesia. Then under continuous sonographic guidance, a 5 Fr catheter was advanced into the right pleural space. The catheter was advanced off the needle and connected to vacuum bottle with subsequent evacuation of 1200 cc of serosanguinous fluid. Note is made that there was still a residual moderate to large right pleural effusion on ultrasound, however given the patient's tenuous blood pressure of 80s/40s at baseline despite albumin administration pre-procedurally, decision made to drain no further fluid at this time. The catheter was removed and a sterile, occlusive dressing was applied. Sample was sent to the lab. The patient tolerated the procedure well. IMPRESSION: Ultrasound-guided right therapeutic thoracentesis with removal of 1200 cc of serosanguinous fluid. Residual moderate to large right pleural effusion was not drained given the patient's tenuous blood pressure at baseline and symptomatic relief at the conclusion of the procedure. PLAN: Repeat thoracentesis as needed for symptomatic relief. Signed by: Dr. Karla Boston MD on 11/24/2017 3:36 PM
--- NOTE | 2017-11-24 15:48 | Diagnostic Imaging Report ---
EXAM: CHEST SINGLE (PORTABLE), AP 1 view INDICATION: Status post thoracentesis COMPARISON: Chest radiograph 11/23/17. FINDINGS: LINES/TUBES: None LUNGS: Increasing aeration of the right lung status post interval thoracentesis. Left lung appears clear. PLEURA: Interval decrease in size of right pleural effusion, now moderate to large. No evidence of pneumothorax. HEART AND MEDIASTINUM: Unchanged cardiomediastinal silhouette. BONES AND SOFT TISSUES: No acute findings. IMPRESSION: Interval thoracentesis with decreasing right pleural effusion, now moderate to large in size with increasing aeration of the right lung. No evidence of pneumothorax. Signed by: Dr. Karla Boston MD on 11/24/2017 3:45 PM
[2017-11-25] VITALS (8 sets, daily range): BP systolic 107–149; BP diastolic 56–90
[2017-11-25] MEDS: FUROSEMIDE INJ 10 MG/ML 4 ML VIAL IV SCH ×2 (00:35→06:43)
[2017-11-25] MEDS: RIFAXIMIN 550 MG TABLET PO SCH ×2 (02:00→14:34)
[2017-11-25 04:39] LABS: BASOPHILS % 0.3 % (0.0-1.0); EOSINOPHILS # (AUTO) 0.3 (0.0-0.4); EOSINOPHILS % 2.5 % (0.0-6.0); LYMPHOCYTES % 10.1 % (18.0-39.1); MEAN CORPUSCULAR HEMOGLOBIN 31.7 pg (28-32); MEAN CORPUSCULAR HGB CONC 35.7 g/dL (31-35); MEAN CORPUSCULAR VOLUME 88.9 fL (81-99); MONOCYTES # (AUTO) 1.4 (0.2-0.8); MONOCYTES % 14.3 % (4.4-11.3); NEUTROPHILS # (AUTO) 7.3 (2.1-6.9); NEUTROPHILS % 72.2 % (38.7-80.0); PLATELET COUNT 82 x10e3/uL (140-360); RED BLOOD COUNT 1.89 x10e6/uL (4.3-5.7); RED CELL DISTRIBUTION WIDTH 20.8 % (11.7-14.4)
[2017-11-25 04:44] LABS: HEMATOCRIT 16.8 % (38.2-49.6)
[2017-11-25 05:02] LABS: ANION GAP 22.2 mmol/L (8-16); CALCIUM 8.9 mg/dL (8.4-10.2); CREATININE, SERUM 3.01 mg/dL (0.72-1.25)
[2017-11-25 05:04] LABS: POTASSIUM 5.2 mmol/L (3.5-5.1)
[2017-11-25] MEDS: ALBUMIN 25% 25GM 100 ML IV SCH (05:30)
[2017-11-25] MEDS ORDERED: SODIUM CHLORIDE 0.9% 250ML 250 ML IV ONE (07:00)
[2017-11-25] MEDS: LACTULOSE SYRUP 20 GM/30 ML UDC PO SCH ×2 (09:00→17:40)
[2017-11-25] MEDS: GABAPENTIN 300 MG CAP PO SCH ×2 (10:00→17:40)
[2017-11-25] MEDS: SODIUM BICARBONATE 650 MG TAB PO SCH ×2 (10:00→17:40)
[2017-11-25] MEDS: MIDODRINE HCL 5 MG TABLET PO SCH ×4 (10:00→21:00)
[2017-11-25] MEDS: PANTOPRAZOLE SOD 40 MG TABEC PO SCH (10:00)
--- NOTE | 2017-11-25 10:54 | Diagnostic Imaging Report ---
PROCEDURE: CHEST SINGLE (PORTABLE) COMPARISON: [facility], DX, CHEST SINGLE (PORTABLE), 11/24/2017, 15:04. INDICATIONS: SHORTNESS OF BREATH FINDINGS: LUNGS: Compressive atelectasis involving the right lung. PLEURA: Increase in size of the right pleural effusion. HEART \T\ MEDIASTINUM: Heart and mediastinum is shifted to the left. BONES \T\ SOFT TISSUES: No acute findings. CONCLUSION: Increase in size of the right pleural effusion. Brayan Paul D.O. Dictated by: Brayan Paul D.O. on 11/25/2017 at 11:02 Electronically approved by: Brayan Paul D.O. on 11/25/2017 at 11:02
[2017-11-25] MEDS ORDERED: OCTREOTIDE ACETATE IV SCH (11:00)
[2017-11-25] MEDS ORDERED: SODIUM CHLORIDE 0.9% IV SCH (11:00)
[2017-11-25] MEDS: ALBUTEROL/IPRATROPIUM 3 ML NEB NEB PRN ×2 (11:30→13:25)
[2017-11-25 11:55] LABS: ABG HCO3 17 mmol/L (23-28); ABG PCO2 26 mmHg (41-51); ABG PH 7.42 (7.31-7.41); ABG PO2 97 mmHg (80-105)
[2017-11-25] MEDS ORDERED: FUROSEMIDE INJ 10 MG/ML 4 ML VIAL IV ONE (13:15)
[2017-11-25] MEDS ORDERED: ALPRAZOLAM 0.25 MG TAB PO PRN (16:00)
[2017-11-25] MEDS ORDERED: BENZONATATE 100 MG CAP PO PRN (16:30)
[2017-11-25] MEDS: MORPHINE SULFATE 2 MG/ML SYR IV PRN (23:33)
[2017-11-26] VITALS (10 sets, daily range): BP systolic 0–115; BP diastolic 0–79
[2017-11-26] MEDS: RIFAXIMIN 550 MG TABLET PO SCH (02:00)
[2017-11-26 05:09] LABS: BASOPHILS % 0.2 % (0.0-1.0); EOSINOPHILS # (AUTO) 0.1 (0.0-0.4); EOSINOPHILS % 0.6 % (0.0-6.0); HEMATOCRIT 21.1 % (38.2-49.6); MEAN CORPUSCULAR HEMOGLOBIN 31.2 pg (28-32); MEAN CORPUSCULAR HGB CONC 34.6 g/dL (31-35); MEAN CORPUSCULAR VOLUME 90.2 fL (81-99); MONOCYTES # (AUTO) 2.9 (0.2-0.8); MONOCYTES % 14.5 % (4.4-11.3); NEUTROPHILS # (AUTO) 14.5 (2.1-6.9); NEUTROPHILS % 73.6 % (38.7-80.0); PLATELET COUNT 128 x10e3/uL (140-360); RED BLOOD COUNT 2.34 x10e6/uL (4.3-5.7); RED CELL DISTRIBUTION WIDTH 20.5 % (11.7-14.4)
[2017-11-26 05:14] LABS: HEMOGLOBIN 7.3 g/dL (14.0-18.0)
[2017-11-26 05:34] LABS: CALCIUM 9.1 mg/dL (8.4-10.2)
[2017-11-26 05:46] LABS: ANION GAP 27.7 mmol/L (8-16); CREATININE, SERUM 4.5 mg/dL (0.72-1.25); POTASSIUM 5.7 mmol/L (3.5-5.1)
--- NOTE | 2017-11-26 06:17 | Diagnostic Imaging Report ---
EXAM: CHEST SINGLE (PORTABLE), AP 1 view INDICATION: Pleural effusion COMPARISON: AP view of the chest November 17, 2017 FINDINGS: LINES/TUBES: None LUNGS: Decreased aeration of the right lung with minimal residual right upper lung aeration. PLEURA: Near complete opacification of the right hemithorax, likely due to enlarging pleural effusion. HEART AND MEDIASTINUM: Possible shift to the left BONES AND SOFT TISSUES: No acute findings. IMPRESSION: Near complete opacification of the right hemithorax, likely due to enlarging pleural effusion. Possible mediastinal shift to the left. Signed by: Dr. Lucretia Bojorquez M.D. on 11/26/2017 6:14 AM
[2017-11-26 06:32] LABS: EOSINOPHILS % (MANUAL) 1 % (0-7); LYMPHOCYTES % (MANUAL) 11 % (19-48); MONOCYTES % (MANUAL) 20 % (3.4-9.0); NEUTROPHILS % (MANUAL) 68 % (40-74); RBC MORPHOLOGY COMMENT NORMAL
[2017-11-26 06:33] LABS: PLATELET ESTIMATE SLIGHTLY DECREASED; PLATELET MORPHOLOGY COMMENT NORMAL
[2017-11-26] MEDS: PANTOPRAZOLE SOD 40 MG TABEC PO SCH (07:30)
[2017-11-26] MEDS: SODIUM BICARBONATE 650 MG TAB PO SCH (09:00)
[2017-11-26] MEDS: MIDODRINE HCL 5 MG TABLET PO SCH (09:00)
[2017-11-26] MEDS: GABAPENTIN 300 MG CAP PO SCH (09:00)
[2017-11-26] MEDS: MORPHINE SULFATE 2 MG/ML SYR IV PRN (09:08)
[2017-11-26] MEDS ORDERED: FUROSEMIDE INJ 10 MG/ML 4 ML VIAL IV ONE (10:30)
[2017-11-26] MEDS ORDERED: LACTULOSE SYRUP 20 GM/30 ML UDC PO SCH (15:00)
--- OUTSIDE RECORDS SUMMARY | 2017-12-13 06:04 | XMS REPORT | Clinical Summary ---
Author Author RANDELL [facility] Address Unknown Phone Unavailable Care Team Providers Care Boat Wrapper Name Role Phone PCP Unavailable Allergies No Known Allergies Current Medications Prescription Sig. Disp. Refills Start End Date Status Date carvedilol (COREG) 3.125 Take 3.125 mg by mouth. 05/20/19 Active MG tablet 18 albuterol HFA (VENTOLIN Inhale 2 puffs by mouth Active HFA) 90 mcg/actuation via inhaler. inhaler furosemide (LASIX) 40 MG Take 40 mg by mouth daily 04/11/19 Active tablet . 18 lactulose (CHRONULAC) 20 Take 30 mL 2 to 3 times 04/11/19 Active gram/30 mL solution every day and titrate to 18 maintain 3 to 4 bowel movements daily magnesium 250 mg Tab Take by mouth. Active tablet rifAXIMin 550 mg Tab Take 550 mg by mouth 05/20/19 Active daily . 18 spironolactone Take 2 tabs by mouth 04/11/19 Active (ALDACTONE) 50 MG tablet every morning 18 Active Problems Problem Noted Date Hepatocellular carcinoma 06/30/2017 Last Assessment & Plan: Hepatocellular carcinoma of multiple lesions found on MRI in November 2016. CD of images obtained from [facility]. We will review imaging and determine if patient meets criteria for liver transplantation. Class 3 severe obesity due to excess calories without serious comorbidity 06/30/2017 in adult Last Assessment & Plan: Body mass index is 41.46 kg/(m^2). Portal hypertension 06/30/2017 Last Assessment & Plan: Portal hypertension is manifested by splenomegaly, esophageal varices, and ascites. Per patient report, EGD in 04/2017 showed varices but did not require intervention. Secondary esophageal varices without bleeding 06/30/2017 Last Assessment & Plan: Esophageal varices seen on imaging. Per patient report, EGD in 04/2017 showed varices, but no intervention was required. Repeat EGD is recommended. Will defer to Dr. Quintanilla. Immunity status testing 06/30/2017 Last Assessment & Plan: All patients with chronic liver disease, regardless of etiology, should be immunized to prevent hepatitis A and hepatitis B if they are not already immune. Alcoholic cirrhosis of liver with ascites 06/30/2017 Last Assessment & Plan: Decompensated liver cirrhosis as evidenced by portal hypertension, esophageal varices, and ascites. Patient was previously hospitalized for hepatic encephalopathy. Encephalopathy currently controlled with rifaximin and lactulose. Ascites controlled with furosemide and spironolactone. Patient was educated on a low sodium diet. Literature provided. Encounters Date Type Specialty Care Team Description 09/01/2017 Office Visit Hepatology Dorothy Miller MD Hepatocellular carcinoma;Portal hypertension ;Secondary esophageal varices without bleeding ;Alcoholic cirrhosis of liver with ascites 08/24/2017 Telephone Hepatology Laura Rios, Follow-up [facility] 07/29/2017 Abstract Transplant Hepatology Isaak Jernigan RN 07/21/2017 [facility] Hepatocellular Encounter carcinoma;Alcoholic cirrhosis of liver with ascites 07/07/2017 Orders Only Transplant HepatIsaak Wiggins RN Hepatocellular carcinoma (Primary Dx);Alcoholic cirrhosis of liver with ascites 07/05/2017 Documentation Transplant HepatIsaak Wiggins RN 07/05/2017 Orders Only Transplant HepatIsaak Wiggins RN Hepatocellular carcinoma (Primary Dx);Alcoholic cirrhosis of liver with ascites;Pre-transplant evaluation for chronic liver disease 07/01/2017 Abstract Transplant Hepatology Hemanth Lemus MD 07/01/2017 Abstract Transplant Nakia Bang 07/01/2017 Abstract Transplant Nakia Bang 06/30/2017 Office Visit Hepatology Dorothy Miller MD Hepatocellular carcinoma;Class 3 severe obesity due to excess calories without serious comorbidity with body mass index (BMI) of 40.0 to 44.9 in adult (HCC);Portal hypertension ;Secondary esophageal varices without bleeding ;Immunity status testing;Alcoholic cirrhosis of liver with ascites 06/28/2017 Telephone Hepatology Priscilla Ceron Appointment after 11/20/2016 Family History Medical History Relation Name Comments Hypertension Brother Cirrhosis Father Diabetes Father Liver disease Sister Hypertension Sister Relation Name Status Comments Brother Alive Father Sister Alive Sister Alive Social History Tobacco Use Types Packs/Day Years Used Date Former Smoker Smokeless Tobacco: Never Used Alcohol Use Drinks/Week oz/Week Comments Yes Sex Assigned at Date Recorded Not on file Last Filed Vital Signs Vital Sign Reading Time Taken Blood Pressure 128/76 06/30/2017 11:37 AM CDT Pulse 63 06/30/2017 11:37 AM CDT Temperature 36.8 C (98.2 F) 06/30/2017 11:37 AM CDT Respiratory Rate 21 06/30/2017 11:37 AM CDT Oxygen Saturation 98% 06/30/2017 11:37 AM CDT Inhaled Oxygen - - Concentration Weight 115.2 kg (253 lb 14.4 oz) 09/01/2017 1:31 PM CDT Height 177 cm (5' 9.7") 06/30/2017 11:37 AM CDT Body Mass Index 36.75 09/01/2017 1:31 PM CDT Plan of Treatment Date Type Specialty Care Team Description 12/15/2017 Office Visit Hepatology Dorothy Miller MD [address] [address] [phone] Health Maintenance Due Date Last Done Comments INFLUENZA VACCINE 11/28/2017 Results * MRI abdomen with and without contrast (07/21/2017 9:21 AM) Specimen Performing Laboratory [employer] Narrative FINAL REPORT MRI OF THE ABDOMEN CLINICAL HISTORY: HCC, cirrhosis TECHNIQUE: Multiplanar and multisequence MR images of the abdomen are obtained before and after intravenous contrast administration. Contrast is administered to evaluate the solid organs. COMPARISON: None. DISCUSSION: LIVER: Cirrhotic morphology of the liver. There are multiple lesions meeting criteria for HCC as follows (measurements are made on the arterial phase, series 11): 1. A 1.7 cm segment II lesion with enhancement, washout, and capsule (image 29). 2. A 2.3 cm segment II lesion with enhancement, washout, and partial capsule (image 33). 3. A 2.5 cm segment II lesion with heterogeneous enhancement and washout (image 25). 4. A 3.1 cm segment VIII lesion with enhancement and washout (image 32). 5. A 2.2 cm segment lesion with enhancement and washout (image 50). 6. A 3.1 cm segment lesion with enhancement and washout (image 58). There are multiple other suspicious areas of enhancement do not demonstrate washout or are below 2 cm in size, but remain concerning for early HCC. For example, a 1.7 cm focus of enhancement in segment (image 47). There is a 1.4 cm focus of enhancement in segment (image 81). There is also a subcapsular 1.6 and meter focus of enhancement in segment (image 69). The main portal vein is grossly patent measuring 1.6 cm. The hepatic veins and intrahepatic IVC are also grossly patent. BILIARY: Gallbladder is partially collapsed. No biliary ductal dilation. PANCREAS: No pancreatic ductal dilation. No solid pancreatic lesion. SPLEEN: Spleen is enlarged measuring 14.1 cm in length. [place] bodies are seen in the spleen. ADRENALS: No nodule. KIDNEYS: No hydronephrosis or hydroureter. No solid renal lesion. PERITONEUM/RETROPERITONEUM: Moderate volume ascites. LYMPH NODES: No upper abdominal lymphadenopathy. VESSELS: Prominent lower esophageal and gastric varices. There is recanalization of the parumbilical vein. 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 BONES AND SOFT TISSUES: No destructive osseous lesion. IMPRESSION: 1. Multifocal HCC with at least six lesions meeting criteria for HCC, as enumerated above. 2. No specific findings of extrahepatic disease in the abdomen. Intrahepatic IVC, hepatic veins, and main portal vein are grossly patent. 3. Cirrhosis, splenomegaly, moderate ascites, and findings of portal hypertension. Mildly prominent gastroesophageal varices. 4. 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 Signed: Joo Taylor MD Report Verified Date/Time:07/21/2017 10:45:57 Reading Location: [facility] C013Y CT Body Reading Room Procedure Note Interface, External Ris In - 07/21/2017 10:48 AM CDT FINAL REPORT MRI OF THE ABDOMEN CLINICAL HISTORY: HCC, cirrhosis TECHNIQUE: Multiplanar and multisequence MR images of the abdomen are obtained before and after intravenous contrast administration. Contrast is administered to evaluate the solid organs. COMPARISON: None. DISCUSSION: LIVER: Cirrhotic morphology of the liver. There are multiple lesions meeting criteria for HCC as follows (measurements are made on the arterial phase, series 11): 1. A 1.7 cm segment II lesion with enhancement, washout, and capsule (image 29). 2. A 2.3 cm segment II lesion with enhancement, washout, and partial capsule (image 33). 3. A 2.5 cm segment II lesion with heterogeneous enhancement and washout (image 25). 4. A 3.1 cm segment VIII lesion with enhancement and washout (image 32). 5. A 2.2 cm segment lesion with enhancement and washout (image 50). 6. A 3.1 cm segment lesion with enhancement and washout (image 58). There are multiple other suspicious areas of enhancement do not demonstrate washout or are below 2 cm in size, but remain concerning for early HCC. For example, a 1.7 cm focus of enhancement in segment (image 47). There is a 1.4 cm focus of enhancement in segment (image 81). There is also a subcapsular 1.6 and meter focus of enhancement in segment (image 69). The main portal vein is grossly patent measuring 1.6 cm. The hepatic veins and intrahepatic IVC are also grossly patent. BILIARY: Gallbladder is partially collapsed. No biliary ductal dilation. PANCREAS: No pancreatic ductal dilation. No solid pancreatic lesion. SPLEEN: Spleen is enlarged measuring 14.1 cm in length. [place] bodies are seen in the spleen. ADRENALS: No nodule. KIDNEYS: No hydronephrosis or hydroureter. No solid renal lesion. PERITONEUM/RETROPERITONEUM: Moderate volume ascites. LYMPH NODES: No upper abdominal lymphadenopathy. VESSELS: Prominent lower esophageal and gastric varices. There is recanalization of the parumbilical vein. 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 BONES AND SOFT TISSUES: No destructive osseous lesion. IMPRESSION: 1. Multifocal HCC with at least six lesions meeting criteria for HCC, as enumerated above. 2. No specific findings of extrahepatic disease in the abdomen. Intrahepatic IVC, hepatic veins, and main portal vein are grossly patent. 3. Cirrhosis, splenomegaly, moderate ascites, and findings of portal hypertension. Mildly prominent gastroesophageal varices. 4. 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 Signed: Joo Taylor MD Report Verified Date/Time: 07/21/2017 10:45:57 Reading Location: [facility] C0[facility] CT Body Reading Room * POC-Creatinine (07/21/2017 8:57 AM) Component Value Ref Range POC-Creatinine 0.8Comment: TESTED AT [address] 0.6 - 1.3 mg/[place] [address] POC-EGFR 97 mL/min/1.73M2 Specimen Performing Laboratory Blood [facility] [address] [address] after 11/20/2016
--- OUTSIDE RECORDS SUMMARY | 2017-12-13 06:05 | XMS REPORT | Continuity of Care Document ---
Author Author [facility] Interface Address Unknown Phone Unavailable Problems Problem Status Onset Date Classification Date Reported Comments Source Cough 03/11/2017 06/13/2017 [facility] Irasema LIVER LESIONS Active 11/30/2016 [facility] Discharge Diagnosis: Knee pain, left 05/25/2014 05/27/2014 [facility] Discharge Diagnosis: Peripheral edema 05/25/2014 05/27/2014 [facility] LEG SWELLING Active 05/25/2014 [facility] HTN (<span [id number]">Confirmed</span>) Resolved Problem 06/13/2017 [facility] [place],[facility] Liver lesion Resolved Problem 06/13/2017 AZIZA Villalpando,[facility] THROMBOCYTOPENIA, UNSPECIFIED Active [facility] Medications Medication Details Route Status Patient Instructions Ordering Provider Order Date Source losartan 100 mg oral tablet 100 mg=1 tab, PO, Daily, # 30 tab, 0 Refill(s) Active 12/03/2016 [facility] Hydrochlorothiazide 25 MG / Spironolactone 25 MG Oral Tablet [Aldactazide] 1 tab, PO, Daily, # 30 tab, 0 Refill(s) Active 12/03/2016 [facility] ibuprofen 600 mg oral tablet 600 mg=1 tab, PO, Q6H, PRN Pain, take with food, # 30 tab, 0 Refill(s)Special Instructions: take with food Active 05/26/2014 [facility] Acetaminophen 325 MG / Hydrocodone Bitartrate 5 MG Oral Tablet [Hazel 5/325] 1 tab, Route: PO, Drug Form: TAB, Dosing Weight 118.182, kg, ONCE, STAT, Start date: 05/25/14 17:03:00, Stop date: 05/25/14 17:03:00 Inactive 05/25/2014 [facility] Allergies, Adverse Reactions, Alerts Substance Category Reaction Severity Reaction type Status Date Reported Comments Source Immunizations Immunization Date Given Site Status Last Updated Comments Source Results Order Name Results Value Reference Range Date Interpretation Comments Source Chest 2 views DX Chest 2 views DX EXAM: XR CHEST 2 VIEWS DATE: 03/07/2017 10:54 AM 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 The lungs are clear. The cardiomediastinal silhouette is normal. There is no acute bony abnormality. IMPRESSION: No acute abnormality 03/07/2017 - - Read by: Oleg Cm Dictated Date/time: 03/08/17 08:18 Electronically Signed by: Oleg Cm 03/08/17 08:18 FINAL REPORT [facility]IZ[facility] Villalpando Biopsy liver VR Biopsy liver VR Patient Name: LANNY LEAL : 1950; Age: 66 years Male MR: [id number] Study: Biopsy liver VR 12/03/2016 8:21 AM CDT PROCEDURE: CT-guided biopsy of a right liver mass CLINICAL INFORMATION: Cirrhosis, multiple liver masses CONSENT: The procedure, risks, benefits and alternatives were discussed with the patient and written informed consent was obtained. A "time out" was performed per protocol prior to the procedure. TECHNIQUE: laydown machine operator: Dr. Boggs Preoperative diagnosis: Cirrhosis, multiple liver masses Postoperative diagnosis: Same DLP: 1300.5 mGy-cm Estimated blood loss: Minimal Pain control: Moderate conscious sedation using Versed 4 mg IV and Fentanyl 100 mcg IV for a total sedation time of 21 min. 1% lidocaine was administered for local anesthesia. Patient's vital signs were monitored continuously throughout the procedure by a dedicated nurse. The patient was placed in a supine position on the CT table. Preprocedure CT demonstrated an exophytic 3.3 cm mass arising off the right hepatic lobe, that extends into the hepatorenal fossa. The right upper abdomen was prepped and draped with sterile technique and the skin was anesthetized with 1% lidocaine. Under CT guidance, a 17-gauge introducer needle was advanced into the right hepatic lobe mass. Subsequently, 6 core biopsies (18-gauge, 2 cm) were obtained of this lesion using a coaxial technique. The needles were removed and sterile dressing applied. Postprocedure imaging demonstrated no immediate complication. Patient tolerated the procedure well and transferred to the recovery room in stable condition. IMPRESSION: Successful CT-guided biopsy of an exophytic right hepatic lobe mass. SL: [id number] 12/03/2016 - - Read by: Rosemarie Boggs MD Dictated Date/time: 12/03/16 10:21 Electronically Signed by: Rsoemarie Boggs MD 12/03/16 10:23 FINAL REPORT [facility] Vital Signs Vital Sign Value Date Comments Source Height 172.72 cm 12/03/2016 [facility] BMI Calculated 42.36 12/03/2016 [facility] Weight 126.364 12/03/2016 [facility] Respitory Rate 18 05/26/2014 [facility] Heart Rate 80 05/26/2014 [facility] Temperature Oral (F) 98.1 F 05/26/2014 [facility] Systolic (mm Hg) 155 05/26/2014 [facility] Diastolic (mm Hg) 83 05/26/2014 [facility] BMI Calculated 42.05 05/25/2014 [facility] Weight 118.182 05/25/2014 [facility] Systolic (mm Hg) 166 05/25/2014 [facility] Diastolic (mm Hg) 90 05/25/2014 [facility] Respitory Rate 18 05/25/2014 [facility] Heart Rate 91 05/25/2014 [facility] Temperature Oral (F) 98.1 F 05/25/2014 [facility] Height 167.64 cm 05/25/2014 [facility] Encounters Location Location Details Encounter Type Encounter Number Reason For Visit Attending Provider ADM Date DC Date Status Source [facility] [id number] [place] 05/25/2014 05/26/2014 [facility] [id number] Frank Merritt 12/03/2016 12/04/2016 [facility] [id number] Porfirio Waldrop 03/07/2017 03/08/2017 [facility] Villalpando Procedures Procedure Code Date Perfomer Comments Source
--- OUTSIDE RECORDS SUMMARY | 2017-12-13 06:08 | XMS REPORT | Clinical Summary ---
Author Author RANDELL [facility] Address Unknown Phone Unavailable Care Team Providers Care Agricultural Engineering Technician Name Role Phone PCP Unavailable Allergies No [...] November 2016. CD of images obtained from [facility]. We will review imaging and determine if [...] Abstract Transplant Hepatology Isaak Jernigan RN 07/21/2017 [facility] Hepatocellular Encounter carcinoma;Alcoholic cirrhosis of [...] Office Visit Hepatology Dorothy Miller MD [address] [address] [phone] Health Maintenance Due Date Last Done Comments INFLUENZA VACCINE 11/28/2017 Results * MRI abdomen with and without contrast (07/21/2017 9:21 AM) Specimen Performing Laboratory [facility] Narrative FINAL REPORT MRI OF THE ABDOMEN [...] MD Report Verified Date/Time:07/21/2017 10:45:57 Reading Location: [facility] C013Y CT Body Reading Room Procedure Note [...] is enlarged measuring 14.1 cm in length. [place] bodies are seen in the spleen. ADRENALS: [...] Report Verified Date/Time: 07/21/2017 10:45:57 Reading Location: [facility] C0[facility] CT Body Reading Room * POC-Creatinine (07/21/2017 8:57 AM) Component Value Ref Range POC-Creatinine 0.8Comment: TESTED AT [address] 0.6 - 1.3 mg/[place] [address] POC-EGFR 97 mL/min/1.73M2 Specimen Performing Laboratory Blood [facility] [address] [address] after 11/20/2016
--- NOTE | 2017-12-20 18:28 | Discharge Summary ---
PRIMARY CARE PHYSICIAN: Dr. Ann Marie Hoover. SUMMARY FINAL DIAGNOSES 1. 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 2. Acute blood loss anemia. 3. Cirrhosis. 4. Hyponatremia. 5. Coagulopathy. 6. Renal insufficiency. 7. Acute renal failure. CONSULTANTS: 1. Dr. Gregorio, nephrology. 2. Dr. Call, respite provider. PROCEDURES/STUDIES PERFORMED: Thoracentesis. HISTORY: Per H&P. HOSPITAL COURSE: The patient has recurrent pleural effusion requiring thoracentesis and also paracentesis as well. The patient continued to not do well. Finally, after multiple conversations with the and the daughter the patient was made comfort care only, and he on November 26, 2017. Job#: [id number] GH cc:ANN MARIE HOOVER MD
== END 2017-11-26 09:39 | disposition expired | DRG 435 ==
LOC: ER 04:20 → ERHOLD 06:25 → IMCU 12:35 → MED/SURG2 11-22 20:19 → IMCU 11-25 20:08
PROVIDERS: ADMIT Internal Medicine; ATTEND Internal Medicine
PROC: 0W993ZX Drainage of Right Pleural Cavity, Percutaneous Approach, Diagnostic (ICD-10-PCS; 2017-11-21)
PROC: 0W9G3ZX Drainage of Peritoneal Cavity, Percutaneous Approach, Diagnostic (ICD-10-PCS; 2017-11-22)
PROC: 0W993ZX Drainage of Right Pleural Cavity, Percutaneous Approach, Diagnostic (ICD-10-PCS; principal; 2017-11-24)
PROC: 30233N1 Transfusion of Nonautologous Red Blood Cells into Peripheral Vein, Percutaneous Approach (ICD-10-PCS; 2017-11-25)
DX: C22.0 Liver cell carcinoma (principal); K76.7 Hepatorenal syndrome; J94.8 Other specified pleural conditions; F10.29 Alcohol dependence with unspecified alcohol-induced disorder; E87.1 Hypo-osmolality and hyponatremia; N17.9 Acute kidney failure, unspecified; E87.2 Acidosis; D68.4 Acquired coagulation factor deficiency; R18.8 Other ascites; Z66 Do not resuscitate; Z51.5 Encounter for palliative care; K70.31 Alcoholic cirrhosis of liver with ascites; E86.0 Dehydration; N28.9 Disorder of kidney and ureter, unspecified; D69.6 Thrombocytopenia, unspecified; D72.829 Elevated white blood cell count, unspecified; T36.1X5A Adverse effect of cephalosporins and other beta-lactam antibiotics, initial encounter; D63.8 Anemia in other chronic diseases classified elsewhere
CPT/HCPCS: 32555; 36415; 36430; 36600; 49083; 51700; 71045; 74470; 80048; 80053; 81001; 82550; 82553; 82805; 83735; 83880; 84484; 85025; 85610; 85730; 86850; 86900; 86920; 87040; 87086; 93005; 94640; 94660; 99285; J0696; J1940; J2270; J2354; J7050; P9016; P9047